=== PATIENT | female | born 1950 | race Caucasian/White ===

== ENCOUNTER 2022-05-16 04:20 | Inpatient (IN) | payer MEDICARE ==
--- NOTE | 2022-05-16 04:28 | ED ---
SOB HPI - General Stated Complaint: SOB Time Seen by Provider: 05/16/22 04:21 Source: RN notes reviewed, old records reviewed Mode of arrival: EMS Limitations: no limitations - History of Present Illness Initial Comments: This is a 72-year-old female DF for evaluation. Patient is a recent hospitalization, with discharge. For lung issues and breathing issues. Patient per EMS had a low oxygen when they arrived, patient was on a long oxygen hose 50 feet maybe poor oxygen output. Patient is improved here with supplemental O2 and per EMS. Patient himself complains of shortness of breath and low oxygen at home MD Complaint: shortness of breath, cough, anxiety -: hour(s) Severity: severe Severity scale (1-10): 8 Quality: aching Consistency: intermittent Improves With: oxygen, rest Worsens With: exertion, movement Known History Of: COPD, asthma Context: recent URI, anxiety, recent illness Associated Symptoms: cough, sputum production Treatments Prior to Arrival: oxygen, bronchodilator - Related Data Home Medications Medication Instructions Recorded Confirmed Albuterol Sulfate [Albuterol 2 puff PO RT-Q6H PRN 05/16/22 05/16/22 Sulfate Hfa] Alendronate Sodium [Fosamax] 70 mg PO WEEKLY 05/16/22 05/16/22 Famotidine [Pepcid] 20 mg PO DAILY 05/16/22 05/16/22 Fluticasone Nasal [place] [Flonase 1 spray EA NOSTRIL DAILY 05/16/22 05/16/22 Nasal [place]] HYDROcodone/APAP 5-325MG [[place] 1 tab PO BID PRN 05/16/22 05/16/22 5-325] Hydroxychloroquine Sulfate 200 mg PO DAILY 05/16/22 05/16/22 [Plaquenil] Ipratropium-Albuterol Nebulize 3 ml INHALATION RT-TID PRN 05/16/22 05/16/22 [Duoneb 0.5 mg-3 mg/3 ml Soln] Pregabalin [Lyrica] 150 mg PO DAILY 05/16/22 05/16/22 busPIRone HCL [Buspar] 7.5 mg PO BID 05/16/22 05/16/22 dilTIAZem HCL [dilTIAZem HCL 24Hr 120 mg PO DAILY 05/16/22 05/16/22 ER (CD)] predniSONE [Deltasone] 20 mg PO BID 05/16/22 05/16/22 Allergies Allergy/AdvReac Type Severity Reaction Status Date / Time lorazepam [From Ativan] Allergy Hallucinati Verified 05/16/22 11:31 ons Review of Systems ROS Statement: Those systems with pertinent positive or pertinent negative responses have been documented in the HPI. ROS Other: All systems not noted in ROS Statement are negative. General Exam General appearance: alert, in no apparent distress, anxious Head exam: Present: atraumatic, normocephalic, normal inspection Eye exam: Present: normal appearance, PERRL, EOMI. Absent: scleral icterus, conjunctival injection, periorbital swelling ENT exam: Present: normal exam, mucous membranes moist Neck exam: Present: normal inspection. Absent: tenderness, meningismus, lymphadenopathy Respiratory exam: Present: respiratory distress, wheezes, accessory muscle use, decreased breath sounds, prolonged expiratory. Absent: rales, rhonchi, stridor Cardiovascular Exam: Present: regular rate, normal rhythm, normal heart sounds. Absent: systolic murmur, diastolic murmur, rubs, gallop, clicks GI/Abdominal exam: Present: soft, normal bowel sounds. Absent: distended, tenderness, guarding, rebound, rigid Extremities exam: Present: normal inspection, full ROM, normal capillary refill. Absent: tenderness, pedal edema, joint swelling, calf tenderness Back exam: Present: normal inspection Neurological exam: Present: alert, oriented X3, CN II-XII intact Psychiatric exam: Present: normal affect, normal mood Skin exam: Present: warm, dry, intact, normal color. Absent: rash Course Vital Signs 05/16/22 05/16/22 05/16/22 04:30 04:36 05:46 Temperature 97.8 F Pulse Rate 99 100 Respiratory 20 20 Rate Blood Pressure 152/83 O2 Sat by Pulse 99 Oximetry 05/16/22 05/16/22 05/16/22 05:57 06:09 07:47 Temperature Pulse Rate 95 97 94 Respiratory 20 Rate Blood Pressure 117/99 O2 Sat by Pulse 95 Oximetry 05/16/22 05/16/22 05/16/22 07:56 08:07 10:16 Temperature Pulse Rate 103 H 96 84 Respiratory 18 Rate Blood Pressure O2 Sat by Pulse 95 Oximetry 12/09/0205/16/22 05/16/22 11:34 11:39 11:46 Temperature Pulse Rate 80 88 Respiratory 20 22 Rate Blood Pressure 151/77 O2 Sat by Pulse 97 Oximetry 05/16/22 05/16/22 05/16/22 11:57 12:43 14:48 Temperature Pulse Rate 89 93 89 Respiratory 20 18 Rate Blood Pressure O2 Sat by Pulse 97 97 Oximetry 05/16/22 05/16/22 05/16/22 16:00 18:25 18:38 Temperature 98.0 F 98.2 F Pulse Rate 78 87 92 Respiratory 18 18 Rate Blood Pressure 161/96 157/84 O2 Sat by Pulse 96 97 Oximetry 05/16/22 18:45 Temperature Pulse Rate 87 Respiratory Rate Blood Pressure O2 Sat by Pulse Oximetry - Reevaluation(s) Reevaluation #1: 05/16/22 05:49 Medical records reviewed Reevaluation #2: 05/16/22 05:49 Patient symptoms significantly improved remained improved, given education on using home oxygen Reevaluation #3: 05/16/22 05:50 Patient informed of results questions have been answered Medical Decision Making - Medical Decision Making 72 female DF for evaluation of shortness of breath and low oxygen. The symptoms are resolved here in the ER patient is given education on home O2 she is understandable and agreeable chest x-ray is negative. Patient has no improvemnt after prolonged breathing treatment here in the ER - Lab Data Result diagrams: 05/16/22 05:21 05/16/22 05:21 Lab Results 05/16/22 05/16/22 05/16/22 Range/Units 05:21 05:21 05:21 WBC 5.4 (3.8-10.6) k/uL RBC 3.78 L (3.80-5.40) m/uL Hgb 11.2 L (11.4-16.0) gm/dL Hct 36.7 (34.0-46.0) % MCV 97.1 (80.0-100.0) fL MCH 29.5 (25.0-35.0) pg MCHC 30.4 L (31.0-37.0) g/dL RDW 13.5 (11.5-15.5) % Plt Count 278 (150-450) k/uL MPV 9.4 Neutrophils % 76 % Lymphocytes % 10 % Monocytes % 9 % Eosinophils % 0 % Basophils % 1 % Neutrophils # 4.1 (1.3-7.7) k/uL Lymphocytes # 0.6 L (1.0-4.8) k/uL Monocytes # 0.5 (0-1.0) k/uL Eosinophils # 0.0 (0-0.7) k/uL Basophils # 0.1 (0-0.2) k/uL Hypochromasia Marked PT 9.4 (9.0-12.0) sec INR 0.9 (<1.2) APTT 21.3 L (22.0-30.0) sec Sodium 142 (137-145) mmol/L Potassium 5.3 H (3.5-5.1) mmol/L Chloride 98 (98-107) mmol/L Carbon Dioxide 41 H* (22-30) mmol/L Anion Gap 3 mmol/L BUN 18 H (7-17) mg/dL Creatinine 0.53 (0.52-1.04) mg/dL Est GFR (CKD-EPI)AfAm >90 (>60 ml/min/1.73 sqM) Est GFR (CKD-EPI)NonAf >90 (>60 ml/min/1.73 sqM) Glucose 125 H (74-99) mg/dL Calcium 8.1 L (8.4-10.2) mg/dL Magnesium 2.1 (1.6-2.3) mg/dL Total Bilirubin 0.4 (0.2-1.3) mg/dL AST 23 (14-36) U/L ALT 23 (4-34) U/L Alkaline Phosphatase 69 (38-126) U/L Troponin I (0.000-0.034) ng/mL NT-Pro-B Natriuret Pep pg/mL Total Protein 6.2 L (6.3-8.2) g/dL Albumin 4.1 (3.5-5.0) g/dL 05/16/22 05/16/22 Range/Units 05:21 05:21 WBC (3.8-10.6) k/uL RBC (3.80-5.40) m/uL Hgb (11.4-16.0) gm/dL Hct (34.0-46.0) % MCV (80.0-100.0) fL MCH (25.0-35.0) pg MCHC (31.0-37.0) g/dL RDW (11.5-15.5) % Plt Count (150-450) k/uL MPV Neutrophils % % Lymphocytes % % Monocytes % % Eosinophils % % Basophils % % Neutrophils # (1.3-7.7) k/uL Lymphocytes # (1.0-4.8) k/uL Monocytes # (0-1.0) k/uL Eosinophils # (0-0.7) k/uL Basophils # (0-0.2) k/uL Hypochromasia PT (9.0-12.0) sec INR (<1.2) APTT (22.0-30.0) sec Sodium (137-145) mmol/L Potassium (3.5-5.1) mmol/L Chloride (98-107) mmol/L Carbon Dioxide (22-30) mmol/L Anion Gap mmol/L BUN (7-17) mg/dL Creatinine (0.52-1.04) mg/dL Est GFR (CKD-EPI)AfAm (>60 ml/min/1.73 sqM) Est GFR (CKD-EPI)NonAf (>60 ml/min/1.73 sqM) Glucose (74-99) mg/dL Calcium (8.4-10.2) mg/dL Magnesium (1.6-2.3) mg/dL Total Bilirubin (0.2-1.3) mg/dL AST (14-36) U/L ALT (4-34) U/L Alkaline Phosphatase (38-126) U/L Troponin I 0.055 H* (0.000-0.034) ng/mL NT-Pro-B Natriuret Pep 3390 pg/mL Total Protein (6.3-8.2) g/dL Albumin (3.5-5.0) g/dL - Radiology Data Radiology results: report reviewed (Chest x-rays negative for acute disease), image reviewed Critical Care Time Critical Care Time: Yes Total Critical Care Time: 31 Disposition Clinical Impression: Acute exacerbation of chronic obstructive pulmonary disease, Hypoxia Disposition: HOME SELF-CARE Condition: Fair Is patient prescribed a controlled substance at d/c from ED?: No Time of Disposition: 06:20
[2022-05-16] MEDS ORDERED: SODIUM CHLORIDE 0.9% 1,000 ML IV STA (05:14)
[2022-05-16] MEDS ORDERED: IPRATROPIUM 0.5 MG/2.5 ML NEBU INHALATION STA (05:14)
[2022-05-16] MEDS ORDERED: methylPREDNISolone SOD SUCCI 125 MG/2 ML VIAL IV STA (05:14)
[2022-05-16] MEDS ORDERED: ALBUTEROL NEBULIZED 2.5 MG/3 ML INHALATION STA (05:14)
--- NOTE | 2022-05-16 05:33 | XR ---
EXAMINATION TYPE: XR chest 1V portable DATE OF EXAM: 05/16/2022 COMPARISON: NONE HISTORY: Short of breath TECHNIQUE: FINDINGS: Heart is enlarged. There is no gross heart failure. There is some coarsening of interstitia l markings. No pleural effusion. There are chest leads. IMPRESSION: Cardiomegaly. Mild pulmonary fibrosis. No obvious heart failure.
[2022-05-16 05:35] LABS: Basophils # (A) 0.1 k/uL (0-0.2); Basophils % (A) 1 %; Eosinophils % (A) 0 %; HCT 36.7 % (34.0-46.0); HGB 11.2 gm/dL (11.4-16.0); Hypochromasia Marked; Lymphocytes # (A) 0.6 k/uL (1.0-4.8); Lymphocytes % (A) 10 %; MCH 29.5 pg (25.0-35.0); MCHC 30.4 g/dL (31.0-37.0); MCV 97.1 fL (80.0-100.0); Mean Platelet Volume 9.4; Monocytes # (A) 0.5 k/uL (0-1.0); Monocytes % (A) 9 %; Neutrophils # (A) 4.1 k/uL (1.3-7.7); Neutrophils % (A) 76 %; Platelet Count 278 k/uL (150-450); RBC 3.78 m/uL (3.80-5.40); RDW 13.5 % (11.5-15.5); WBC 5.4 k/uL (3.8-10.6)
[2022-05-16 06:08] LABS: INR 0.9 (<1.2); Prothrombin Time 9.4 sec (9.0-12.0)
[2022-05-16 06:10] LABS: ALT 23 U/L (4-34); AST 23 U/L (14-36); African American GFR (CKD) >90 (>60 ml/min/1.73 sqM); Albumin 4.1 g/dL (3.5-5.0); Alkaline Phosphatase 69 U/L (38-126); Blood Urea Nitrogen 18 mg/dL (7-17); Calcium 8.1 mg/dL (8.4-10.2); Chloride 98 mmol/L (98-107); Glucose 125 mg/dL (74-99); Magnesium 2.1 mg/dL (1.6-2.3); Non-African American GFR(CKD) >90 (>60 ml/min/1.73 sqM); Potassium 5.3 mmol/L (3.5-5.1); Sodium 142 mmol/L (137-145); Total Bilirubin 0.4 mg/dL (0.2-1.3); Total Protein 6.2 g/dL (6.3-8.2)
[2022-05-16 06:15] LABS: Partial Thromboplastin Time 21.3 sec (22.0-30.0)
[2022-05-16 06:17] LABS: Anion Gap 3 mmol/L
[2022-05-16 06:34] LABS: Carbon Dioxide 41 mmol/L (22-30)
[2022-05-16] MEDS ORDERED: NALOXONE 0.4 MG/ML 1 ML VIAL IVP PRN (06:52)
[2022-05-16] MEDS ORDERED: IPRATROPIUM-ALBUTEROL 3 ML NEB INHALATION STA (06:52)
[2022-05-16] MEDS: DOXYCYCLINE 100 MG CAP PO SCH ×2 (08:43→22:27)
[2022-05-16] MEDS: methylPREDNISolone SOD SUCCI 125 MG/2 ML VIAL IV SCH ×2 (11:41→18:41)
--- NOTE | 2022-05-16 11:44 | P.CNPUL ---
History of Present Illness Consult date: 05/16/22 Requesting physician: Armand Garcia Reason for consult: dyspnea, COPD Chief complaint: Shortness of breath, cough, congestion History of present illness: This is a pleasant 72-year-old female patient with a history of chronic tobacco dependence of 50 years however quit in 2015, oxygen dependent. 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 She believes her lung function is at 43%. She had recently been hospitalized in [place] and had just been recently discharged. She was here in town with her daughter and she developed increasing shortness of breath cough congestion wheezing and presented here to the emergency room early this morning for the same. Chest x-ray reveals cardiomega ly. Mild pulmonary fibrosis. No acute heart failure. white count 5.4. Hemoglobin 11.2. Platelets 278. D-dimer 0.48. Sodium 142. Potassium 5.3. Bicarb 41. BUN 18. Creatinine 0.53. ProBNP 3390. Troponin 0.05. Newell virus by PCR not detected. She is initiated and DuoNeb inhalations, Solu-Medrol, Symbicort and empiric antibiotics in the form of doxycycline. Normal saline at 130 ML's per hour.she is seen today in contact flotation in the emergency department. Currently sitting up in a stretcher. Awake and alert in no acute distress. Breathing is somewhat improved. Review of Systems REVIEW OF SYSTEMS: CONSTITUTIONAL: Denies any recent significant weight loss or weight gain. EYES: Denies change in vision. EARS, NOSE, MOUTH, THROAT: Denies headaches, denies sore throat. CARDIOVASCULAR: Denies chest pain, palpitations or syncopal episodes. RESPIRATORY:Positive for shortness of breath, cough, congestion no hemoptysis. GASTROINTESTINAL: Denies change in appetite, denies abdominal pain GENITOURINARY: Denies hematuria, denies infections. MUSKULOSKELETAL: Denies pain, denies swelling. INTEGUMENTARY: Denies rash, denies eczema. NEUROLOGICAL: Denies recent memory loss, no recent seizure activity. PSYCHIATRIC: Denies anxiety, denies depression. HEMATOLOGIC/LYMPHATIC: Denies anemia, denies enlarged lymph nodes. Medications and Allergies Allergies Allergy/AdvReac Type Severity Reaction Status Date / Time lorazepam [From Ativan] Allergy Hallucinati Verified 05/16/22 11:31 ons Physical Exam Vitals: Vital Signs Temp Pulse Resp BP Pulse Ox 05/16/22 10:16 84 18 95 05/16/22 08:07 96 05/16/22 07:56 103 H 05/16/22 07:47 94 20 117/99 95 05/16/22 06:09 97 05/16/22 05:57 95 05/16/22 05:46 100 05/16/22 04:36 20 05/16/22 04:30 97.8 F 99 20 152/83 99 Intake and Output 05/15/22 05/16/22 05/16/22 22:59 06:59 14:59 Other: Weight 63.503 kg GENERAL EXAM: Alert, pleasant 72-year-old female patient, on 4 L nasal cannula, comfortable in no apparent distress. HEAD: Normocephalic. EYES: Normal reaction of pupils, equal size. NOSE: Clear with pink turbinates. THROAT: No erythema or exudates. NECK: No masses, no JVD. CHEST: No chest wall deformity. LUNGS: Equal air entry with bilateral end expiratory wheeze, diminished. CVS: S1 and S2 normal with no audible murmur, regular rhythm. ABDOMEN: No hepatosplenomegaly, normal bowel sounds, no guarding or rigidity. SPINE: No scoliosis or deformity SKIN: No rashes CENTRAL NERVOUS SYSTEM: No focal deficits, tone is normal in all 4 extremities. EXTREMITIES: There is no peripheral edema. No clubbing, no cyanosis. Peripheral pulses are intact. Results - Laboratory Findings CBC and BMP: 05/16/22 05:21 05/16/22 05:21 PT/INR, D-dimer PT 9.4 sec (9.0-12.0) 05/16/22 05:21 INR 0.9 (<1.2) 05/16/22 05:21 D-Dimer 0.48 mg/L FEU (<0.60) 05/16/22 08:30 Abnormal lab findings: Abnormal Labs 05/16/22 05/16/22 05/16/22 05:21 05:21 05:21 RBC 3.78 L Hgb 11.2 L MCHC 30.4 L Lymphocytes # 0.6 L APTT 21.3 L Potassium 5.3 H Carbon Dioxide 41 H* BUN 18 H Glucose 125 H Calcium 8.1 L Troponin I Total Protein 6.2 L 05/16/22 05:21 RBC Hgb MCHC Lymphocytes # APTT Potassium Carbon Dioxide BUN Glucose Calcium Troponin I 0.055 H* Total Protein Assessment and Plan Assessment: Acute on chronic hypoxemic respiratory failure secondary to an exacerbation of COPD. Newell virus not detected. History of chronic obstructive pulmonary disease, oxygen dependent History of 50 years of chronic tobacco dependence however quit in 2014 Recent hospitalization in [place] Plan: The patient was seen and evaluated Chest x-ray, labs and medications reviewed Continue Symbicort, Solu-Medrol, DuoNeb inhalations Follow-up with her network systems integrator within 1 week of discharge We will continue to follow and make further recommendations based on her clinical status I have personally seen and examined the patient, performed the documentation and the assessment and plan as written. Number of minutes spent on the visit: 20
[2022-05-16] MEDS: IPRATROPIUM-ALBUTEROL 3 ML NEB INHALATION PRN ×3 (11:45→21:32)
[2022-05-16] MEDS ORDERED: ALBUTEROL HFA INHALER INHALATION PRN (12:01)
--- NOTE | 2022-05-16 12:09 | P.HPIM ---
History of Present Illness H&P Date: 05/16/22 History of present illness; patient is 72-year-old lady with past medical history significant for chronic hypoxic respiratory failure, COPD, history of tobacco addiction who presented to the ER because of worsening shortness of breath. Patient was recently admitted in the hospital in [place] for COPD exacerbation and was discharged and was visiting her daughter here. Patient was using oxygen at home, normally 2 L at rest at 4 L on exertion but stated that yesterday she felt that her oxygen was not working for her. Patient was getting short of breath on exertion, also complaining of cough. Denied any chest pain. There was no complain of orthopnea or PND. Denies any swelling of feet. Pat ient was worked up in the ER, initial lab work showed patient to have a white count of 5.4, hemoglobin 11.2, platelet count of 278, sodium 142 potassium 5.3, bicarbonate 41, covid was negative, chest x-ray was negative for pneumonia. Patient was admitted to hospitalist service REVIEW OF SYSTEMS: CONSTITUTIONAL: No fever, no malaise, no fatigue. HEENT: No recent visual problems or hearing problems. Denied any sore throat. CARDIOVASCULAR: No chest pain, orthopnea, PND, no palpitations, no syncope. PULMONARY: As mentioned in HPI GASTROINTESTINAL: No diarrhea, no nausea, no vomiting, no abdominal pain. NEUROLOGICAL: No headaches, no weakness, no numbness. HEMATOLOGICAL: Denies any bleeding or petechiae. GENITOURINARY: Denies any burning micturition, frequency, or urgency. MUSCULOSKELETAL/RHEUMATOLOGICAL: Denies any joint pain, swelling, or any muscle pain. ENDOCRINE: Denies any polyuria or polydipsia. The rest of the 14-point review of systems is negative. PHYSICAL EXAMINATION: GENERAL: The patient is alert and oriented x3, not in any acute distress. Well developed, well nourished. HEENT: Pupils are round and equally reacting to light. EOMI. No scleral icterus. No conjunctival pallor. Normocephalic, atraumatic. No pharyngeal erythema. No thyromegaly. CARDIOVASCULAR: S1 and S2 present. No murmurs, rubs, or gallops. PULMONARY: Tachypneic, coarse breath some bilaterally, expiratory wheeze audible ABDOMEN: Soft, nontender, nondistended, normoactive bowel sounds. No palpable organomegaly. MUSCULOSKELETAL: No joint swelling or deformity. EXTREMITIES: No cyanosis, clubbing, or pedal edema. NEUROLOGICAL: Gross neurological examination did not reveal any focal deficits. SKIN: No rashes. Assessment and plan Acute on chronic hypoxemic respiratory failure. Acute COPD exacerbation Hyperkalemia History of tobacco addiction Plan; Continue oxygen supplementation Aggressive bronchopulmonary hygiene continue IV Solu-Medrol Continue breathing treatment continue doxycycline Resume home meds Consult pulmonary Medications and Allergies Home Medications Medication Instructions Recorded Confirmed Type Albuterol Sulfate [Albuterol 2 puff PO RT-Q6H PRN 05/16/22 05/16/22 History Sulfate Hfa] Alendronate Sodium [Fosamax] 70 mg PO WEEKLY 05/16/22 05/16/22 History Famotidine [Pepcid] 20 mg PO DAILY 05/16/22 05/16/22 History Fluticasone Nasal [place] [Flonase 1 spray EA NOSTRIL DAILY 05/16/22 05/16/22 History Nasal [place]] HYDROcodone/APAP 5-325MG [[place] 1 tab PO BID PRN 05/16/22 05/16/22 History 5-325] Hydroxychloroquine Sulfate 200 mg PO DAILY 05/16/22 05/16/22 History [Plaquenil] Ipratropium-Albuterol Nebulize 3 ml INHALATION RT-TID PRN 05/16/22 05/16/22 History [Duoneb 0.5 mg-3 mg/3 ml Soln] Pregabalin [Lyrica] 150 mg PO DAILY 05/16/22 05/16/22 History busPIRone HCL [Buspar] 7.5 mg PO BID 05/16/22 05/16/22 History dilTIAZem HCL [dilTIAZem HCL 24Hr 120 mg PO DAILY 05/16/22 05/16/22 History ER (CD)] predniSONE [Deltasone] 20 mg PO BID 05/16/22 05/16/22 History Allergies Allergy/AdvReac Type Severity Reaction Status Date / Time lorazepam [From Ativan] Allergy Hallucinati Verified 05/16/22 11:31 ons Physical Exam Vitals: Vital Signs Temp Pulse Resp BP Pulse Ox 05/16/22 11:57 89 05/16/22 11:46 88 05/16/22 11:39 22 05/16/22 11:34 80 20 151/77 97 05/16/22 10:16 84 18 95 05/16/22 08:07 96 05/16/22 07:56 103 H 05/16/22 07:47 94 20 117/99 95 05/16/22 06:09 97 05/16/22 05:57 95 05/16/22 05:46 100 05/16/22 04:36 20 05/16/22 04:30 97.8 F 99 20 152/83 99 Intake and Output 05/15/22 05/16/22 05/16/22 22:59 06:59 14:59 Other: Weight 63.503 kg Results CBC & Chem 7: 05/16/22 05:21 05/16/22 05:21 Labs: Abnormal Lab Results - Last 24 Hours (Table) 05/16/22 05/16/22 05/16/22 Range/Units 05:21 05:21 05:21 RBC 3.78 L (3.80-5.40) m/uL Hgb 11.2 L (11.4-16.0) gm/dL MCHC 30.4 L (31.0-37.0) g/dL Lymphocytes # 0.6 L (1.0-4.8) k/uL APTT 21.3 L (22.0-30.0) sec Potassium 5.3 H (3.5-5.1) mmol/L Carbon Dioxide 41 H* (22-30) mmol/L BUN 18 H (7-17) mg/dL Glucose 125 H (74-99) mg/dL Calcium 8.1 L (8.4-10.2) mg/dL Troponin I (0.000-0.034) ng/mL Total Protein 6.2 L (6.3-8.2) g/dL 05/16/22 Range/Units 05:21 RBC (3.80-5.40) m/uL Hgb (11.4-16.0) gm/dL MCHC (31.0-37.0) g/dL Lymphocytes # (1.0-4.8) k/uL APTT (22.0-30.0) sec Potassium (3.5-5.1) mmol/L Carbon Dioxide (22-30) mmol/L BUN (7-17) mg/dL Glucose (74-99) mg/dL Calcium (8.4-10.2) mg/dL Troponin I 0.055 H* (0.000-0.034) ng/mL Total Protein (6.3-8.2) g/dL
[2022-05-16] MEDS: FUROSEMIDE 10 MG/ML 4 ML VIAL IV SCH (18:41)
[2022-05-16 21:12] LABS: Glucose,Whole Blood 170 mg/dL (70-110)
[2022-05-16] MEDS: SYMBICORT 160-4.5 MCG INHALER INHALATION SCH (21:32)
[2022-05-16] MEDS: busPIRone HCl 5 MG TAB PO SCH (22:26)
[2022-05-16] MEDS: FLUTICASONE 50MCG/SPRAY NASAL 16GM EA NOSTRIL PRN (22:27)
[2022-05-17] MEDS ORDERED: HEPARIN SOD,PORK IN 0.45% NACL 25,000 UNIT in 0.45% NACL 1 250ML.BAG IV SCH
[2022-05-17] MEDS ORDERED: HEPARIN SODIUM 1,000 UN/ML (10ML VL) IV ONE
[2022-05-17] MEDS ORDERED: DILTIAZEM DRIP BOLUS FROM BAG 1 MG SOLN IV ONE (00:16)
[2022-05-17 00:19] LABS: Glucose,Whole Blood 165 mg/dL (70-110)
[2022-05-17] MEDS ORDERED: DILTIAZEM 125 MG in SODIUM CHLORIDE 0.9% 100 ML IV SCH (00:30)
[2022-05-17 00:45] LABS: Basophils % (A) 0 %; Eosinophils % (A) 0 %; HCT 36.6 % (34.0-46.0); Hypochromasia Marked; Lymphocytes # (A) 0.3 k/uL (1.0-4.8); Lymphocytes % (A) 5 %; MCH 28.8 pg (25.0-35.0); Mean Platelet Volume 8.6; Monocytes # (A) 0.4 k/uL (0-1.0); Monocytes % (A) 6 %; Neutrophils # (A) 5.2 k/uL (1.3-7.7); Neutrophils % (A) 87 %; Platelet Count 279 k/uL (150-450); RBC 3.82 m/uL (3.80-5.40); RDW 13.6 % (11.5-15.5); WBC 5.9 k/uL (3.8-10.6)
[2022-05-17] MEDS: HEPARIN SODIUM 1,000 UN/ML (10ML VL) IV PRN ×3 (00:46→16:02)
[2022-05-17] MEDS: methylPREDNISolone SOD SUCCI 125 MG/2 ML VIAL IV SCH ×5 (00:54→23:08)
[2022-05-17 01:05] LABS: INR 0.9 (<1.2); Partial Thromboplastin Time 21.7 sec (22.0-30.0)
[2022-05-17] MEDS: IPRATROPIUM-ALBUTEROL 3 ML NEB INHALATION PRN ×6 (03:49→23:23)
--- NOTE | 2022-05-17 04:05 | XR ---
EXAMINATION TYPE: XR chest 1V portable DATE OF EXAM: 05/17/2022 COMPARISON: Yesterday HISTORY: Short of breath TECHNIQUE: FINDINGS: There is an enlarged heart. There is pulmonary interstitial and airspace mild edema. There is blunting of the costophrenic angles. There are chest leads. IMPRESSION: There is pulmonary edema and pleural fluid which is mostly new compared to yesterday and consistent with congestive heart failure.
[2022-05-17 06:43] LABS: HCT 35.9 % (34.0-46.0); HGB 10.9 gm/dL (11.4-16.0); Hypochromasia Marked; MCH 28.8 pg (25.0-35.0); MCHC 30.4 g/dL (31.0-37.0); MCV 94.6 fL (80.0-100.0); Mean Platelet Volume 8.6; Platelet Count 302 k/uL (150-450); RDW 13.4 % (11.5-15.5); WBC 6.8 k/uL (3.8-10.6)
[2022-05-17 06:56] LABS: Glucose,Whole Blood 167 mg/dL (70-110)
[2022-05-17 07:04] LABS: ALT 22 U/L (4-34); AST 21 U/L (14-36); African American GFR (CKD) >90 (>60 ml/min/1.73 sqM); Albumin 3.8 g/dL (3.5-5.0); Albumin/Globulin Ratio 1.8; Alkaline Phosphatase 54 U/L (38-126); Blood Urea Nitrogen 18 mg/dL (7-17); Calcium 8.8 mg/dL (8.4-10.2); Chloride 90 mmol/L (98-107); Globulin 2.1 g/dL; Glucose 157 mg/dL (74-99); Non-African American GFR(CKD) >90 (>60 ml/min/1.73 sqM); Potassium 4.3 mmol/L (3.5-5.1); Sodium 140 mmol/L (137-145); Total Bilirubin 0.4 mg/dL (0.2-1.3); Total Protein 5.9 g/dL (6.3-8.2)
[2022-05-17 07:10] LABS: Anion Gap 4 mmol/L
[2022-05-17 07:16] LABS: Carbon Dioxide 46 mmol/L (22-30)
[2022-05-17] MEDS ORDERED: DILTIAZEM CD 120 MG CAP.ER.24H PO SCH ×2 (09:00)
[2022-05-17] MEDS ORDERED: LOSARTAN 25 MG TAB PO SCH (09:00)
[2022-05-17] MEDS: DOXYCYCLINE 100 MG CAP PO SCH ×2 (09:04→20:56)
[2022-05-17] MEDS: FLUTICASONE 50MCG/SPRAY NASAL 16GM EA NOSTRIL PRN ×2 (09:05→20:56)
[2022-05-17] MEDS: FLUTICASONE 50MCG/SPRAY NASAL 16GM EA NOSTRIL SCH (09:06)
[2022-05-17] MEDS: FUROSEMIDE 10 MG/ML 4 ML VIAL IV SCH (09:13)
[2022-05-17] MEDS: SYMBICORT 160-4.5 MCG INHALER INHALATION SCH ×2 (09:20→19:07)
[2022-05-17] MEDS: busPIRone HCl 5 MG TAB PO SCH ×2 (10:11→20:56)
[2022-05-17] MEDS ORDERED: DILTIAZEM CD 120 MG CAP.ER.24H PO STA (12:07)
--- NOTE | 2022-05-17 12:43 | P.PN ---
Subjective Progress Note Date: 05/17/22 patient is 72-year-old lady with past medical history significant for chronic hypoxic respiratory failure, COPD, history of tobacco addiction who presented to the ER because of worsening shortness of breath. Patient was recently admitted in the hospital in [place] for COPD exacerbation and was discharged and was visiting her daughter here. Patient was using oxygen at home, normally 2 L at rest at 4 L on exertion but stated that yesterday she felt that her oxygen was not working for her. Patient was getting short of breath on exertion, also complaining of cough. Denied any chest pain. There was no complain of orthopnea or PND. Denies any swelling of feet. Patient was worked up in the ER, initial lab work showed patient to have a white count of 5.4, hemoglobin 11.2, platelet count of 278, sodium 142 potassium 5.3, bicarbonate 41, covid was negative, chest x-ray was negative for pneumonia. Patient was admitted to hospitalist service 05/17. Patient seen and examined. Feeling much better compared to yesterday. Currently on 4 L of oxygen REVIEW OF SYSTEMS: CONSTITUTIONAL: No fever, no malaise,. CARDIOVASCULAR: No chest pain, no palpitations, no syncope. PULMONARY: Gets short of breath on slight exertion. Complaining of cough GASTROINTESTINAL: No diarrhea, no nausea, no vomiting, no abdominal pain. NEUROLOGICAL: No headaches, no weakness, PHYSICAL EXAMINATION: GENERAL: The patient is alert and oriented x3, not in any acute distress. Well developed, well nourished. HEENT: Pupils are round and equally reacting to light. EOMI. No scleral icterus. No conjunctival pallor. Normocephalic, atraumatic. No pharyngeal erythema. No thyromegaly. CARDIOVASCULAR: S1 and S2 present. No murmurs, rubs, or gallops. PULMONARY: Coarse breath some bilaterally ABDOMEN: Soft, nontender, nondistended, normoactive bowel sounds. No palpable organomegaly. MUSCULOSKELETAL: No joint swelling or deformity. EXTREMITIES: No cyanosis, clubbing, or pedal edema. NEUROLOGICAL: Gross neurological examination did not reveal any focal deficits. SKIN: No rashes. Assessment and plan Acute on chronic hypoxemic respiratory failure. Acute COPD exacerbation Hyperkalemia History of tobacco addiction Elevated troponin. A. fib with RVR Plan; Continue oxygen supplementation Aggressive bronchopulmonary hygiene continue IV Solu-Medrol Continue breathing treatment continue doxycycline echo ordered Follow-up on cardiology recommendations Follow-up on pulmonary recommendations DVT prophylaxis: Objective - Vital Signs Vital signs: Vital Signs Temp 97.9 F 05/17/22 09:00 Pulse 117 H 05/17/22 11:00 Resp 88 H 05/17/22 11:00 BP 135/57 05/17/22 10:00 Pulse Ox 93 L 05/17/22 10:30 FiO2 40 05/17/22 09:21 Intake & Output 05/16/22 05/17/22 05/17/22 18:59 06:59 18:59 Intake Total 60 248.006 Output Total 600 400 Balance -540 -151.994 Weight 63.503 kg Intake: Intake, IV Titration 48.006 Amount Heparin Sod,Pork in 0.45% 48.006 NaCl 25,000 unit In 0.45 % NaCl 1 250ml.bag @ 12 UNITS/KG/HR 7.62 mls/hr IV .Q24H FLAQUITO Rx#: [id number] Oral 60 200 Output: Urine 600 400 Other: Voiding Method Bedside Commode # Voids 1 1 # Bowel Movements 1 - Labs CBC & Chem 7: 05/17/22 06:18 05/17/22 06:18 Labs: Abnormal Lab Results - Last 24 Hours (Table) 05/16/22 05/16/22 05/17/22 Range/Units 15:04 21:11 00:16 Hgb 11.0 L (11.4-16.0) gm/dL MCHC 30.0 L (31.0-37.0) g/dL Lymphocytes # 0.3 L (1.0-4.8) k/uL APTT (22.0-30.0) sec Chloride (98-107) mmol/L Carbon Dioxide (22-30) mmol/L BUN (7-17) mg/dL Glucose (74-99) mg/dL POC Glucose (mg/dL) 170 H (70-110) mg/dL Troponin I 0.043 H* (0.000-0.034) ng/mL Total Protein (6.3-8.2) g/dL 05/17/22 05/17/22 05/17/22 Range/Units 00:16 00:17 06:18 Hgb 10.9 L (11.4-16.0) gm/dL MCHC 30.4 L (31.0-37.0) g/dL Lymphocytes # (1.0-4.8) k/uL APTT 21.7 L (22.0-30.0) sec Chloride (98-107) mmol/L Carbon Dioxide (22-30) mmol/L BUN (7-17) mg/dL Glucose (74-99) mg/dL POC Glucose (mg/dL) 165 H (70-110) mg/dL Troponin I (0.000-0.034) ng/mL Total Protein (6.3-8.2) g/dL 05/17/22 05/17/22 Range/Units 06:18 06:55 Hgb (11.4-16.0) gm/dL MCHC (31.0-37.0) g/dL Lymphocytes # (1.0-4.8) k/uL APTT (22.0-30.0) sec Chloride 90 L (98-107) mmol/L Carbon Dioxide 46 H* (22-30) mmol/L BUN 18 H (7-17) mg/dL Glucose 157 H (74-99) mg/dL POC Glucose (mg/dL) 167 H (70-110) mg/dL Troponin I (0.000-0.034) ng/mL Total Protein 5.9 L (6.3-8.2) g/dL
--- NOTE | 2022-05-17 12:47 | CONS ---
CONSULTATION HISTORY OF PRESENT ILLNESS: Yaneth is a 72-year-old lady with history of severe COPD, who is admitted to hospital with shortness of breath, cough, and congestion. She has a longstanding history of smoking. She lives in near [place] and is visiting her daughter here in [place]. She has recently been admitted to hospital in [place] with similar symptoms. On her initial presentation, her BNP was elevated. She had leg edema and had mild troponin elevation. Her clinical presentation seemed to be related to COPD exacerbation with elevated troponin probably related to hypoxia and respiratory distress. Her heart failure is probably predominantly right-sided. While on the floor last night, she developed atrial flutter with rapid ventricular rate. I started her on Cardizem and transferred her to ICU. She converted back to sinus rhythm this morning and remains in sinus rhythm. At the time of my evaluation, she is on a non-rebreather and does not seem to be in distress and denies any chest pain. I am going to stop the IV Cardizem, resume the oral Cardizem that she had been on, but continue the IV heparin, and hopefully, transition her to an oral anticoagulant. I will obtain a 2D echo to evaluate her systolic and diastolic function and to rule out any pulmonary hypertension. She will continue with Lasix that she is currently on. Blood pressure is poorly controlled, I am adding Cozaar. She is not a candidate for beta blockers because of the severe underlying COPD. CURRENT MEDICATIONS: 1. Prednisone. 2. Lyrica. 3. DuoNeb. 4. Plaquenil. 5. Crescent. 6. Diltiazem. 7. BuSpar. 8. Pepcid. 9. Fosamax. 10.Albuterol. ALLERGIES: Allergic to Ativan. FAMILY HISTORY: Negative for premature coronary artery disease. SOCIAL HISTORY: Significant for smoking, but she quit several years ago. REVIEW OF SYSTEMS: HEENT: Unremarkable. CARDIAC: As described above. RESPIRATORY: As described above. GI: Negative. GENITOURINARY: Negative. ALLERGY/IMMUNOLOGY: Negative. SKIN: Negative. MUSCULOSKELETAL: Significant for arthritis. PSYCHOSOCIAL: Negative. DERM: Negative. CONSTITUTIONAL: As described above. Rest of the system review is not relevant. PHYSICAL EXAMINATION: VITAL SIGNS: The patient is afebrile, heart rate is 70 beats per minute, blood pressure is 170/80, respiratory rate is 18. CHEST: Reveals diffuse rhonchi, diminished air entry bilaterally. HEART: Reveals first and second heart sounds. No gallop. I do not hear any murmur. ABDOMEN: Soft. EXTREMITIES: Reveals bilateral 2+ pitting edema. LABORATORY DATA AND IMAGING: Labs show a hemoglobin of 10.9, platelet count is 302, potassium is 4.3, creatinine is 0.5. Troponins are mildly elevated at 0.05 and 0.04. EKG showed atypical atrial flutter with rapid ventricular rate. This morning, the rhythm strips show that she is back in sinus rhythm. ASSESSMENT: 1. Shortness of breath secondary to chronic obstructive pulmonary disease exacerbation. 2. Right-sided heart failure. 3. Atypical atrial flutter. 4. Elevated troponin secondary to hypoxia, could represent type 2 myocardial infarction. PLAN: I will obtain a 2D echo. Resume the oral Cardizem, stop intravenous Cardizem. Add losartan. Continue the diuretics for another day and switch her to p.o. hopefully tomorrow. MMODL / PAULINAN: [id number] /
--- NOTE | 2022-05-17 13:03 | P.PN ---
Subjective Progress Note Date: 05/17/22 Principal diagnosis: acute exacerbation of COPD This is a pleasant 72-year-old female patient with a history of chronic tobacco dependence of 50 years however quit in 2015, oxygen dependent. 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 She believes her lung function is at 43%. She had recently been hospitalized in [place] and had just been recently discharged. She was here in town with her daughter and she developed increasing shortness of breath cough congestion wheezing and presented here to the emergency room early this morning for the same. Chest x-ray reveals cardiomegaly. Mild pulmonary fibrosis. No acute heart failure. white count 5.4. Hemoglobin 11.2. Platelets 278. D-dimer 0.48. Sodium 142. Potassium 5.3. Bicarb 41. BUN 18. Creatinine 0.53. ProBNP 3390. Troponin 0.05. Newell virus by PCR not detected. She is initiated and DuoNeb inhalations, Solu- Medrol, Symbicort and empiric antibiotics in the form of doxycycline. Normal saline at 130 ML's per hour.she is seen today in contact flotation in the emergency department. Currently sitting up in a stretcher. Awake and alert in no acute distress. Breathing is somewhat improved. Patient was reevaluated today on 05/17/22, patient had to be transferred to the ICU last night mostly because she developed atrial fibrillation and RVR. Patient also developed some component of mild congestive heart failure. Had to be placed on diuretics, we had to place the patient on BiPAP last night, however she seems to be more comfortable today, she is down to 4 L nasal cannula, and last night she was on BiPAP 12/5/40%. Chest x-ray did show evidence of mild congestive heart failure. Patient was placed on Cardizem and it was already transitioned to oral Cardizem by cardiology this morning.WBC count today is 6.8 hemoglobin is 10.9 lites are normal bicarb is 46 BUN is 18 and creatinine 0.57. Chest x-ray showed cardiomegaly and mild interstitial edema. Along with COPD. Objective - Vital Signs Vital signs: Vital Signs Temp 97.9 F 05/17/22 09:00 Pulse 117 H 05/17/22 11:00 Resp 88 H 05/17/22 11:00 BP 135/57 05/17/22 10:00 Pulse Ox 93 L 05/17/22 10:30 FiO2 40 05/17/22 09:21 Intake & Output 05/16/22 05/17/22 05/17/22 18:59 06:59 18:59 Intake Total 60 248.006 Output Total 600 400 Balance -540 -151.994 Weight 63.503 kg Intake: Intake, IV Titration 48.006 Amount Heparin Sod,Pork in 0.45% 48.006 NaCl 25,000 unit In 0.45 % NaCl 1 250ml.bag @ 12 UNITS/KG/HR 7.62 mls/hr IV .Q24H [facility] Rx#: [id number] Oral 60 200 Output: Urine 600 400 Other: Voiding Method Bedside Commode # Voids 1 1 # Bowel Movements 1 - Exam Physical Exam: Revealed a 72-year-old female in no distress, she is on 4 L nasal cannula. Head: Atraumatic, normocephalic. HEENT:[Neck is supple.] [No neck masses.] [No thyromegaly.] [No JVD.] Chest: [diminished breath sounds and crackles at the bases. Occasional wheezing on forced expiratory maneuver.] Cardiac Exam:irregular irregular rhythm. [Normal S1 and S2, no S3 gallop, no murmur.] Abdomen: [Soft, nontender, no megaly, no rebound, no guarding, normal bowel sounds.] Extremities: [No clubbing, no edema, no cyanosis.] Neurological Exam: [No focal neurologic deficit.]alert and oriented 3. Psychiatric: Normal mood affect and normal mental status examination. Skin: No rashes. - Labs CBC & Chem 7: 05/17/22 06:18 05/17/22 06:18 Labs: Abnormal Lab Results - Last 24 Hours (Table) 05/16/22 05/16/22 05/17/22 Range/Units 15:04 21:11 00:16 Hgb 11.0 L (11.4-16.0) gm/dL MCHC 30.0 L (31.0-37.0) g/dL Lymphocytes # 0.3 L (1.0-4.8) k/uL APTT (22.0-30.0) sec Chloride (98-107) mmol/L Carbon Dioxide (22-30) mmol/L BUN (7-17) mg/dL Glucose (74-99) mg/dL POC Glucose (mg/dL) 170 H (70-110) mg/dL Troponin I 0.043 H* (0.000-0.034) ng/mL Total Protein (6.3-8.2) g/dL 05/17/22 05/17/22 05/17/22 Range/Units 00:16 00:17 06:18 Hgb 10.9 L (11.4-16.0) gm/dL MCHC 30.4 L (31.0-37.0) g/dL Lymphocytes # (1.0-4.8) k/uL APTT 21.7 L (22.0-30.0) sec Chloride (98-107) mmol/L Carbon Dioxide (22-30) mmol/L BUN (7-17) mg/dL Glucose (74-99) mg/dL POC Glucose (mg/dL) 165 H (70-110) mg/dL Troponin I (0.000-0.034) ng/mL Total Protein (6.3-8.2) g/dL 05/17/22 05/17/22 Range/Units 06:18 06:55 Hgb (11.4-16.0) gm/dL MCHC (31.0-37.0) g/dL Lymphocytes # (1.0-4.8) k/uL APTT (22.0-30.0) sec Chloride 90 L (98-107) mmol/L Carbon Dioxide 46 H* (22-30) mmol/L BUN 18 H (7-17) mg/dL Glucose 157 H (74-99) mg/dL POC Glucose (mg/dL) 167 H (70-110) mg/dL Troponin I (0.000-0.034) ng/mL Total Protein 5.9 L (6.3-8.2) g/dL Assessment and Plan Assessment: Acute on chronic hypoxemic respiratory failure secondary to an exacerbation of COPD. Newell virus not detected. stat atrial fibrillation with RVR, likely triggered by her underlying COPD. History of chronic obstructive pulmonary disease, oxygen dependent History of 50 years of chronic tobacco dependence however quit in 2015 mild congestive heart failure, possibly secondary to A. fib RVR,/diastolic in nature. Recommendation: Continue bronchodilators. Continue Solu-Medrol. Continue antibiotics. Continue heparin and eventually may transition to oral medication./Eliquis. continue oral Cardizem Continue to monitor in the ICU. Continue diuretics. Continue GI prophylaxis. Advanced diet as tolerated. We'll continue to follow. Time with Patient: Less than 30
--- NOTE | 2022-05-17 16:08 | CA ---
Transthoracic Echo Report Name: Yaneth Dejesus Age: 72 Gender: F : 1950 Exam Date: 05/17/2022 10:34 Exam Location: [facility] Ht (in): 50 Wt (lb): 140 Ordering Physician: Marc Clark MD ([id number]) Attending/Referring Phys: Eduardo YOO Pulp Grinder Feeder Johnna Figueroa RDCS Procedure CPT: Indications: heart function Cardiac Hx: Technical Quality: Contrast 1: Total Dose (mL): Contrast 2: Total Dose (mL): MEASUREMENTS (Male / Female) Normal Values 2D ECHO LV Diastolic Diameter PLAX 4.6 cm 4.2 - 5.9 / 3.9 - 5.3 cm LV Systolic Diameter PLAX 3.6 cm IVS Diastolic Thickness 1.1 cm 0.6 - 1.0 / 0.6 - 0.9 cm LVPW Diastolic Thickness 1.6 cm 0.6 - 1.0 / 0.6 - 0.9 cm LV Relative Wall Thickness 0.6 RV Internal Dim ED PLAX 2.6 cm LA Systolic Diameter LX 3.3 cm 3.0 - 4.0 / 2.7 - 3.8 cm LA Volume 48.7 cm??? 18 - 58 / 22 - 52 cm??? M-MODE Aortic Root Diameter MM 3.3 cm LA Systolic Diameter MM 3.9 cm LA Ao Ratio MM 1.2 MV E Point Septal Separation 0.7 cm AV Cusp Separation MM 1.5 cm FINDINGS Left Ventricle Mildly increased septal wall thickness.left ventricular cavity size normal. Left ventricular ejection fraction is estimated at 55%. Right Ventricle Normal right ventricular size and function. Right ventricular systolic pressure within normal limits. Right Atrium Normal right atrial size. Left Atrium Normal left atrial size. Mitral Valve Mitral annular calcification. Mild mitral regurgitation. Aortic Valve Trileaflet aortic valve. Aortic valve sclerosis. Tricuspid Valve Structurally normal tricuspid valve. Mild tricuspid regurgitation. Pulmonic Valve Structurally normal pulmonic valve. Pericardium Normal pericardium. Aorta Normal size aortic root and proximal ascending aorta. CONCLUSIONS Normal LV systolic function Mild mitral regurgitation Previewed by: Dr. Marc Clark MD (Electronically Signed) Final Date: 17 May 2022 16:07
[2022-05-17 20:57] LABS: Glucose,Whole Blood 184 mg/dL (70-110)
[2022-05-17] MEDS: ACETAMINOPHEN TAB 325 MG TAB PO PRN (23:48)
[2022-05-18] MEDS: IPRATROPIUM-ALBUTEROL 3 ML NEB INHALATION PRN ×4 (02:04→23:20)
[2022-05-18] MEDS: methylPREDNISolone SOD SUCCI 125 MG/2 ML VIAL IV SCH ×4 (05:15→23:58)
[2022-05-18 05:16] LABS: Glucose,Whole Blood 170 mg/dL (70-110)
[2022-05-18 07:33] LABS: Basophils % (A) 0 %; Eosinophils % (A) 0 %; HCT 38.5 % (34.0-46.0); HGB 11.5 gm/dL (11.4-16.0); Hypochromasia Marked; Lymphocytes # (A) 0.2 k/uL (1.0-4.8); Lymphocytes % (A) 2 %; MCH 28.2 pg (25.0-35.0); MCHC 29.9 g/dL (31.0-37.0); MCV 94.4 fL (80.0-100.0); Mean Platelet Volume 8.7; Monocytes # (A) 0.4 k/uL (0-1.0); Monocytes % (A) 5 %; Neutrophils # (A) 7.3 k/uL (1.3-7.7); Neutrophils % (A) 91 %; Platelet Count 331 k/uL (150-450); RBC 4.08 m/uL (3.80-5.40); RDW 13.5 % (11.5-15.5); WBC 8.1 k/uL (3.8-10.6)
--- NOTE | 2022-05-18 07:50 | XR ---
EXAMINATION TYPE: XR chest 1V portable DATE OF EXAM: 05/18/2022 HISTORY: Shortness of breath. COMPARISON: 05/17/2022 TECHNIQUE: Single view of the chest is submitted. FINDINGS: Demonstrated are scattered senescent parenchymal change. Continued cardiomegaly with pulmonary venous congestion and tiny effusions. There appears to be mild interstitial edema. Hilar and mediastinal structures are within normal limits. Degenerative changes are seen of the dorsal spine. IMPRESSION: 1. Continued cardiomegaly with pulmonary venous congestion and tiny effusions. There appears to be m ild interstitial edema. Slight interval improvement suggested.
[2022-05-18 07:57] LABS: INR 0.9 (<1.2)
--- NOTE | 2022-05-18 07:59 | P.PN ---
Subjective Progress Note Date: 05/18/22 Principal diagnosis: Atrial flutter, typical The patient is a 72-year-old female patient with a past medical history significant for chronic hypoxic respiratory failure secondary to COPD who was admitted to the hospital with increasing shortness of breath and she was diagnosed with COPD exacerbation. We consulted to see the patient because off cardiac arrhythmia mainly atrial flutter with RVR. Beside that she did have a component of heart failure with evidence of right more than left heart failure likely secondary to cor pulmonale. May [id number] The patient was seen and evaluated this morning. She remains short of breath. She remains in atrial flutter with overall controlled heart rate. The dose of Cardizem CD orally has increased today. She continues to be congested on examination as well as by chest x-ray. She is on IV Lasix which we will continue for additional 24 hours. The pressure remains elevated going to increase the dose of losartan to 50 mg by mouth daily. For some reason she is not on anticoagulation mainly because of possible GI bleeding and that is currently in investigation. She underwent an echo which revealed normal left ventricular systolic function was no significant valvular abnormalities Objective - Vital Signs Vital signs: Vital Signs Temp 97.5 F L 05/18/22 04:00 Pulse 108 H 05/18/22 07:00 Resp 27 H 05/18/22 07:00 BP 162/120 05/18/22 07:00 Pulse Ox 90 L 05/18/22 07:00 FiO2 40 05/18/22 04:00 Intake & Output 05/17/22 05/18/22 05/18/22 18:59 06:59 18:59 Intake Total 332.461 62.299 Output Total 400 0 Balance -67.539 62.299 Weight 62 kg Intake: Intake, IV Titration 132.461 62.299 Amount Heparin Sod,Pork in 0.45% 132.461 62.299 NaCl 25,000 unit In 0.45 % NaCl 1 250ml.bag @ 12 UNITS/KG/HR 7.62 mls/hr IV .Q24H [facility] Rx#: [id number] Oral 200 Output: Urine 400 Stool 0 Other: Voiding Method Bedside Commode Bedside Commode # Voids 1 1 0 # Bowel Movements 1 - Constitutional General appearance: Present: no acute distress - Respiratory Respiratory: bilateral: diminished - Cardiovascular Rhythm: irregularly irregular - Labs CBC & Chem 7: 05/18/22 07:08 05/17/22 06:18 Labs: Abnormal Lab Results - Last 24 Hours (Table) 05/17/22 05/17/22 05/17/22 Range/Units 14:03 15:05 20:55 MCHC (31.0-37.0) g/dL Lymphocytes # (1.0-4.8) k/uL APTT 31.8 H (22.0-30.0) sec POC Glucose (mg/dL) 184 H (70-110) mg/dL Stool Occult Blood Positive H (Negative) 05/18/22 05/18/22 Range/Units 05:13 07:08 MCHC 29.9 L (31.0-37.0) g/dL Lymphocytes # 0.2 L (1.0-4.8) k/uL APTT (22.0-30.0) sec POC Glucose (mg/dL) 170 H (70-110) mg/dL Stool Occult Blood (Negative) Microbiology - Last 24 Hours (Table) 05/17/22 09:20 Gram Stain - Preliminary Sputum Sputum Culture - Preliminary Assessment and Plan Assessment: Assessment COPD exacerbation Chronic hypoxic respiratory failure Heart failure exacerbation secondary to heart failure was preserved ejection fraction was evidence of right more than left heart failure Typical atrial flutter was overall controlled heart rate Systemic hypertension Plan Increase the dose of losartan to get the pressure under control The dose of Cardizem CD has increased air earlier today Consider starting the patient on anticoagulation after ruling out GI bleeding Continue IV Lasix for additional 24 hours Follow-up with the patient
[2022-05-18] MEDS: FUROSEMIDE 10 MG/ML 4 ML VIAL IV SCH (08:11)
[2022-05-18] MEDS: DILTIAZEM CD 240 MG CAP.ER.24H PO SCH (08:12)
[2022-05-18] MEDS: DOXYCYCLINE 100 MG CAP PO SCH ×2 (08:12→21:24)
[2022-05-18] MEDS: LOSARTAN 50 MG TAB PO SCH (08:12)
[2022-05-18] MEDS: FLUTICASONE 50MCG/SPRAY NASAL 16GM EA NOSTRIL SCH (08:12)
[2022-05-18] MEDS: busPIRone HCl 5 MG TAB PO SCH ×2 (08:12→20:55)
[2022-05-18] MEDS: SYMBICORT 160-4.5 MCG INHALER INHALATION SCH (08:14)
--- NOTE | 2022-05-18 10:50 | P.PN ---
Subjective Progress Note Date: 05/18/22 This is a pleasant 72-year-old female patient with a history of chronic tobacco dependence of 50 years however quit in 2015, oxygen dependent. 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 She believes her lung function is at 43%. She had recently been hospitalized in [place] and had just been recently discharged. She was here in town with her daughter and she developed increasing shortness of breath cough congestion wheezing and presented here to the emergency room early this morning for the same. Chest x-ray reveals cardiomegaly. Mild pulmonary fibrosis. No acute heart failure. white count 5.4. Hemoglobin 11.2. Platelets 278. D-dimer 0.48. Sodium 142. Potassium 5.3. Bicarb 41. BUN 18. Creatinine 0.53. ProBNP 3390. Troponin 0.05. Newell virus by PCR not detected. She is initiated and DuoNeb inhalations, Solu- Medrol, Symbicort and empiric antibiotics in the form of doxycycline. Normal saline at 130 ML's per hour.she is seen today in contact flotation in the emergency department. Currently sitting up in a stretcher. Awake and alert in no acute distress. Breathing is somewhat improved. Patient was reevaluated today on 05/17/22, patient had to be transferred to the ICU last night mostly because she developed atrial fibrillation and RVR. Patient also developed some component of mild congestive heart failure. Had to be placed on diuretics, we had to place the patient on BiPAP last night, however she seems to be more comfortable today, she is down to 4 L nasal cannula, and last night she was on BiPAP 05/18/40%. Chest x-ray did show evidence of mild congestive heart failure. Patient was placed on Cardizem and it was already transitioned to oral Cardizem by cardiology this morning.WBC count today is 6.8 hemoglobin is 10.9 lites are normal bicarb is 46 BUN is 18 and creatinine 0.57. Chest x-ray showed cardiomegaly and mild interstitial edema. Along with COPD. The patient is seen today 05/18/2022 in follow-up in the intensive care unit. She is currently sitting up in a chair at the bedside. Awake and alert in no acute distress. She is maintaining O2 saturations in the 90s on 5 L/m per nasal cannula. She did utilize BiPAP last night 05/19 and 40% FiO2. No IV fluids. She remains in atrial fibrillation. White count 8.1. Hemoglobin 11.5. Glucose 170. She is continued on DuoNeb inhalations, Symbicort, IV Solu-Medrol. Remains on IV diuretics. Cardizem for heart rate control. Chest x-ray continued to show cardiomegaly with pulmonary venous congestion and tiny effusions. Slight improvement compared to yesterday. Objective - Vital Signs Vital signs: Vital Signs Temp 98.4 F 05/18/22 08:00 Pulse 98 05/18/22 10:00 Resp 23 05/18/22 10:00 BP 131/98 05/18/22 10:00 Pulse Ox 95 05/18/22 10:00 FiO2 40 05/18/22 04:00 Intake & Output 05/17/22 05/18/22 05/18/22 18:59 06:59 18:59 Intake Total 332.461 62.299 Output Total 400 0 250 Balance -67.539 62.299 -250 Weight 62 kg Intake: Intake, IV Titration 132.461 62.299 Amount Heparin Sod,Pork in 0.45% 132.461 62.299 NaCl 25,000 unit In 0.45 % NaCl 1 250ml.bag @ 12 UNITS/KG/HR 7.62 mls/hr IV .Q24H [facility] Rx#: [id number] Oral 200 Output: Urine 400 250 Stool 0 Other: Voiding Method Bedside Commode Bedside Commode Bedside Commode # Voids 1 1 0 # Bowel Movements 1 - Exam GENERAL EXAM: Alert, pleasant 72-year-old female patient, on 5 L nasal cannula, comfortable in no apparent distress. HEAD: Normocephalic. EYES: Normal reaction of pupils, equal size. NOSE: Clear with pink turbinates. THROAT: No erythema or exudates. NECK: No masses, no JVD. CHEST: No chest wall deformity. LUNGS: Equal air entry with bilateral end expiratory wheeze, diminished. CVS: S1 and S2 normal with no audible murmur, irregular rhythm. ABDOMEN: No hepatosplenomegaly, normal bowel sounds, no guarding or rigidity. SPINE: No scoliosis or deformity SKIN: No rashes CENTRAL NERVOUS SYSTEM: No focal deficits, tone is normal in all 4 extremities. EXTREMITIES: There is no peripheral edema. No clubbing, no cyanosis. Peripheral pulses are intact. - Labs CBC & Chem 7: 05/18/22 07:08 05/17/22 06:18 Labs: Abnormal Lab Results - Last 24 Hours (Table) 05/17/22 05/17/22 05/17/22 Range/Units 14:03 15:05 20:55 MCHC (31.0-37.0) g/dL Lymphocytes # (1.0-4.8) k/uL APTT 31.8 H (22.0-30.0) sec POC Glucose (mg/dL) 184 H (70-110) mg/dL Stool Occult Blood Positive H (Negative) 05/18/22 05/18/22 Range/Units 05:13 07:08 MCHC 29.9 L (31.0-37.0) g/dL Lymphocytes # 0.2 L (1.0-4.8) k/uL APTT (22.0-30.0) sec POC Glucose (mg/dL) 170 H (70-110) mg/dL Stool Occult Blood (Negative) Microbiology - Last 24 Hours (Table) 05/17/22 09:20 Gram Stain - Preliminary Sputum Sputum Culture - Preliminary Assessment and Plan Assessment: Acute on chronic hypoxemic respiratory failure secondary to an exacerbation of COPD. Newell virus not detected. History of chronic obstructive pulmonary disease, oxygen dependent History of 50 years of chronic tobacco dependence however quit in 2014 Atrial fibrillation/flutter Acute exacerbation of diastolic congestive heart failure Recent hospitalization in [place] Plan: The patient was seen and evaluated Chest x-ray, labs and medications reviewed Continue Solu-Medrol, DuoNeb inhalations She has declined Symbicort, discontinued Continue diuretics per cardiology Transfer out of the ICU to the selective care unit We will continue to follow I have personally seen and examined the patient, performed the documentation and the assessment and plan as written. Number of minutes spent on the visit: 10
[2022-05-18] MEDS: IPRATROPIUM-ALBUTEROL 3 ML NEB INHALATION SCH ×3 (11:27→20:18)
[2022-05-18 11:30] LABS: Glucose,Whole Blood 209 mg/dL (70-110)
[2022-05-18 16:48] LABS: Glucose,Whole Blood 125 mg/dL (70-110)
[2022-05-18] MEDS: ACETAMINOPHEN TAB 325 MG TAB PO PRN (17:02)
[2022-05-18 19:50] LABS: Glucose,Whole Blood 174 mg/dL (70-110)
--- NOTE | 2022-05-18 21:49 | P.PN ---
Subjective patient is 72-year-old lady with past medical history significant for chronic hypoxic respiratory failure, COPD, history of tobacco addiction who presented to the ER because of worsening shortness of breath. Patient was recently admitted in the hospital in [place] for COPD exacerbation and was discharged and was visiting her daughter here. Patient was using oxygen at home, normally 2 L at rest at 4 L on exertion but stated that yesterday she felt that her oxygen was not working for her. Patient was getting short of breath on exertion, also complaining of cough. Denied any chest pain. There was no complain of orthopnea or PND. Denies any swelling of feet. Patient was worked up in the ER, initial lab work showed patient to have a white count of 5.4, hemoglobin 11.2, platelet count of 278, sodium 142 potassium 5.3, bicarbonate 41, covid was negative, chest x-ray was negative for pneumonia. Patient was admitted to hospitalist service 05/18/2012 Patient breathing pattern is improving and currently she is on [address] oxygen via nasal cannula She has occult blood positive in his stool but d-dimer is negative. Sputum culture is pending Chest x-ray showed CHF Ejection fraction 55% She's on doxycycline, IV Solu-Medrol, IV Lasix 40 mg daily also as oral Cardizem 240 mg per solderer in line Protonix and its and we'll check iron studies Objective - Vital Signs Vital signs: Vital Signs Temp 98.3 F 05/18/22 12:00 Pulse 80 05/18/22 14:00 Resp 29 H 05/18/22 12:00 BP 137/65 05/18/22 12:00 Pulse Ox 93 L 05/18/22 12:00 FiO2 40 05/18/22 04:00 Intake & Output 05/17/22 05/18/22 05/18/22 18:59 06:59 18:59 Intake Total 332.461 62.299 Output Total 400 0 600 Balance -67.539 62.299 -600 Weight 62 kg Intake: Intake, IV Titration 132.461 62.299 Amount Heparin Sod,Pork in 0.45% 132.461 62.299 NaCl 25,000 unit In 0.45 % NaCl 1 250ml.bag @ 12 UNITS/KG/HR 7.62 mls/hr IV .Q24H [facility] Rx#: [id number] Oral 200 Output: Urine 400 600 Stool 0 Other: Voiding Method Bedside Commode Bedside Commode Bedside Commode # Voids 1 1 0 # Bowel Movements 1 - Exam GENERAL: The patient is alert and oriented x3, not in any acute distress. Well developed, well nourished. HEENT: Pupils are round and equally reacting to light. EOMI. No scleral icterus. No conjunctival pallor. Normocephalic, atraumatic. No pharyngeal erythema. No thyromegaly. CARDIOVASCULAR: S1 and S2 present. No murmurs, rubs, or gallops. -PULMONARY: Chest is clear to auscultation, bilateral scattered wheezing. ABDOMEN: Soft, nontender, nondistended, normoactive bowel sounds. No palpable organomegaly. MUSCULOSKELETAL: No joint swelling or deformity. EXTREMITIES: No cyanosis, clubbing, or pedal edema. NEUROLOGICAL: Gross neurological examination did not reveal any focal deficits. SKIN: No rashes. no petechiae. - Labs CBC & Chem 7: 05/18/22 07:08 05/17/22 06:18 Labs: Abnormal Lab Results - Last 24 Hours (Table) 05/17/22 05/18/22 05/18/22 Range/Units 20:55 05:13 07:08 MCHC 29.9 L (31.0-37.0) g/dL Lymphocytes # 0.2 L (1.0-4.8) k/uL POC Glucose (mg/dL) 184 H 170 H (70-110) mg/dL 05/18/22 Range/Units 11:28 MCHC (31.0-37.0) g/dL Lymphocytes # (1.0-4.8) k/uL POC Glucose (mg/dL) 209 H (70-110) mg/dL Microbiology - Last 24 Hours (Table) 05/17/22 09:20 Gram Stain - Preliminary Sputum Sputum Culture - Preliminary Assessment and Plan Assessment: Acute COPD exacerbation Acute diastolic CHF with ejection fraction 55% Acute on chronic hypoxemic respiratory failure. Chronic atrial fibrillation Elevated troponin Hyperkalemia History of tobacco addiction Plan: Continue with IV Solu-Medrol and doxycycline on Continue with Lasix prior solderer Pulmonary and cardiology team on the case End Protonix Check iron studies Labs and medication were reviewed.. Continue same treatment. Continue with symptomatic treatment. Resume home medication. Monitor lytes and vitals. DVT and GI prophylaxis. Further recommendations as per clinical course of the patient DVT prophylaxis: Subcutaneous heparin on hold because of positive occult blood in stool GI Prophylaxis: Ppi PT/OT: Pending Prognosis is guarded
[2022-05-19] MEDS: IPRATROPIUM-ALBUTEROL 3 ML NEB INHALATION PRN ×2 (03:59→23:02)
[2022-05-19] MEDS: methylPREDNISolone SOD SUCCI 125 MG/2 ML VIAL IV SCH ×3 (05:29→16:56)
[2022-05-19 05:57] LABS: Glucose,Whole Blood 138 mg/dL (70-110)
[2022-05-19] MEDS: IPRATROPIUM-ALBUTEROL 3 ML NEB INHALATION SCH ×4 (07:32→19:43)
[2022-05-19 08:20] LABS: Basophils % (A) 0 %; Eosinophils % (A) 0 %; HCT 40.7 % (34.0-46.0); HGB 12.2 gm/dL (11.4-16.0); Hypochromasia Marked; Lymphocytes # (A) 0.2 k/uL (1.0-4.8); Lymphocytes % (A) 3 %; MCH 28.5 pg (25.0-35.0); MCHC 29.9 g/dL (31.0-37.0); MCV 95.2 fL (80.0-100.0); Mean Platelet Volume 8.8; Monocytes # (A) 0.4 k/uL (0-1.0); Monocytes % (A) 5 %; Neutrophils # (A) 8.1 k/uL (1.3-7.7); Neutrophils % (A) 91 %; Platelet Count 357 k/uL (150-450); RBC 4.27 m/uL (3.80-5.40); RDW 13.3 % (11.5-15.5); WBC 8.9 k/uL (3.8-10.6)
[2022-05-19 08:30] LABS: African American GFR (CKD) >90 (>60 ml/min/1.73 sqM); Blood Urea Nitrogen 24 mg/dL (7-17); Calcium 9.1 mg/dL (8.4-10.2); Chloride 84 mmol/L (98-107); Glucose 161 mg/dL (74-99); Non-African American GFR(CKD) 89 (>60 ml/min/1.73 sqM); Sodium 142 mmol/L (137-145)
[2022-05-19 08:39] LABS: Anion Gap 3 mmol/L
[2022-05-19 08:43] LABS: Carbon Dioxide 55 mmol/L (22-30)
[2022-05-19] MEDS: busPIRone HCl 5 MG TAB PO SCH ×2 (08:58→21:02)
[2022-05-19] MEDS: LOSARTAN 50 MG TAB PO SCH (08:59)
[2022-05-19] MEDS: PANTOPRAZOLE 40 MG/10 ML VIAL IVP SCH (08:59)
[2022-05-19] MEDS: DILTIAZEM CD 240 MG CAP.ER.24H PO SCH (08:59)
[2022-05-19] MEDS: FUROSEMIDE 10 MG/ML 4 ML VIAL IV SCH (09:00)
[2022-05-19] MEDS: DOXYCYCLINE 100 MG CAP PO SCH ×2 (09:01→21:03)
[2022-05-19] MEDS: FLUTICASONE 50MCG/SPRAY NASAL 16GM EA NOSTRIL SCH (09:01)
--- NOTE | 2022-05-19 10:14 | P.PN ---
Subjective patient is 72-year-old lady with past medical history significant for chronic hypoxic respiratory failure, COPD, history of tobacco addiction who presented to the ER because of worsening shortness of breath. Patient was recently admitted in the hospital in [place] for COPD exacerbation and was discharged and was visiting her daughter here. Patient was using oxygen at home, normally 2 L at rest at 4 L on exertion but stated that yesterday she felt that her oxygen was not working for her. Patient was getting short of breath on exertion, also complaining of cough. Denied any chest pain. There was no complain of orthopnea or PND. Denies any swelling of feet. Patient was worked up in the ER, initial lab work showed patient to have a white count of 5.4, hemoglobin 11.2, platelet count of 278, sodium 142 potassium 5.3, bicarbonate 41, covid was negative, chest x-ray was negative for pneumonia. Patient was admitted to hospitalist service 05/18/2012 Patient breathing pattern is improving and currently she is on [address] oxygen via nasal cannula She has occult blood positive in his stool but d-dimer is negative. Sputum culture is pending Chest x-ray showed CHF Ejection fraction 55% She's on doxycycline, IV Solu-Medrol, IV Lasix 40 mg daily also as oral Cardizem 240 mg per registered respiratory therapist in line Protonix and its and we'll check iron studies 05/19/2022 Patient was on BiPAP this morning, able to come the gait and interactive, she is fully awake, she is not in distress. Over she is slowly and gradually improving regarding her COPD while she is on doxycycline, IV Solu-Medrol and IV Lasix 40 mg daily. Also patient with diastolic CHF. She has chronic atrial fibrillation, not on anticoagulation. Her occult blood in the stool is positive however patient is not anemic, surgery team were consulted. Objective - Vital Signs Vital signs: Vital Signs Temp 98 F 05/19/22 08:00 Pulse 88 05/19/22 08:00 Resp 23 05/19/22 08:00 BP 145/57 05/19/22 08:00 Pulse Ox 96 05/19/22 08:00 FiO2 40 05/19/22 08:00 Intake & Output 05/18/22 05/19/22 05/19/22 18:59 06:59 18:59 Intake Total 480 Output Total 800 200 Balance -320 -200 Intake: Oral 480 Output: Urine 800 200 Other: Voiding Method Bedside Commode Bedside Commode # Voids 1 1 - Exam GENERAL: The patient is alert and oriented x3, not in any acute distress. Well developed, well nourished. HEENT: Pupils are round and equally reacting to light. EOMI. No scleral icterus. No conjunctival pallor. Normocephalic, atraumatic. No pharyngeal erythema. No thyromegaly. CARDIOVASCULAR: S1 and S2 present. No murmurs, rubs, or gallops. -PULMONARY: Chest is clear to auscultation, bilateral scattered wheezing. ABDOMEN: Soft, nontender, nondistended, normoactive bowel sounds. No palpable organomegaly. MUSCULOSKELETAL: No joint swelling or deformity. EXTREMITIES: No cyanosis, clubbing, or pedal edema. NEUROLOGICAL: Gross neurological examination did not reveal any focal deficits. SKIN: No rashes. no petechiae. - Labs CBC & Chem 7: 05/19/22 07:43 05/19/22 07:43 Labs: Abnormal Lab Results - Last 24 Hours (Table) 05/18/22 05/18/22 05/18/22 Range/Units 11:28 16:45 19:49 MCHC (31.0-37.0) g/dL Neutrophils # (1.3-7.7) k/uL Lymphocytes # (1.0-4.8) k/uL Chloride (98-107) mmol/L Carbon Dioxide (22-30) mmol/L BUN (7-17) mg/dL Glucose (74-99) mg/dL POC Glucose (mg/dL) 209 H 125 H 174 H (70-110) mg/dL 05/19/22 05/19/22 05/19/22 Range/Units 05:56 07:43 07:43 MCHC 29.9 L (31.0-37.0) g/dL Neutrophils # 8.1 H (1.3-7.7) k/uL Lymphocytes # 0.2 L (1.0-4.8) k/uL Chloride 84 L (98-107) mmol/L Carbon Dioxide 55 H* (22-30) mmol/L BUN 24 H (7-17) mg/dL Glucose 161 H (74-99) mg/dL POC Glucose (mg/dL) 138 H (70-110) mg/dL Microbiology - Last 24 Hours (Table) 05/17/22 09:20 Gram Stain - Preliminary Sputum Sputum Culture - Preliminary Assessment and Plan Assessment: Acute COPD exacerbation Acute diastolic CHF with ejection fraction 55% Acute on chronic hypoxemic respiratory failure. Chronic atrial fibrillation Elevated troponin Hyperkalemia History of tobacco addiction Plan: Continue with IV Solu-Medrol and doxycycline on Continue with Lasix per registered respiratory therapist Pulmonary and cardiology team on the case Continue with Protonix Check iron studies Follow-up with surgery team Labs and medication were reviewed.. Continue same treatment. Continue with symptomatic treatment. Resume home medication. Monitor lytes and vitals. DVT and GI prophylaxis. Further recommendations as per clinical course of the patient DVT prophylaxis: Subcutaneous heparin on hold because of positive occult blood in stool GI Prophylaxis: Ppi PT/OT: Pending Prognosis is guarded
[2022-05-19 11:32] LABS: Glucose,Whole Blood 183 mg/dL (70-110)
--- NOTE | 2022-05-19 11:34 | P.PN ---
Subjective The patient is a 72-year-old female patient with a past medical history significant for COPD, hypertension, asthma, former tobacco use. Does not follow with a investments manager. She presented to the ER with chronic hypoxic respiratory failure secondary to COPD who was admitted to the hospital with increasing shortness of breath and she was diagnosed with COPD exacerbation. We consulted to see the patient because off cardiac arrhythmia mainly atrial flutter with RVR and mildly elevated troponin. Beside that she did have a component of heart failure with evidence of right more than left heart failure likely secondary to cor pulmonale. She was initially in the ICU, now transferred to . 05/19/2022 The patient was seen and evaluated this morning. She remains short of breath. Edema has resolved. She remains in atrial flutter/atrial fibrillation with overall controlled heart rate. She is on 240mg of Cardizem CD. She continues to be congested on examination. She is on IV Lasix 40mg daily. For some reason she is not on anticoagulation mainly because of possible GI bleeding and that is currently in investigation. She underwent an echo which revealed normal left ventricular systolic function 55% with no significant valvular abnormalities GENERAL: Well-appearing, well-nourished and in no acute distress. NECK: Supple without JVD or thyromegaly. LUNGS: Breath sounds crackles to auscultation bilateral bases. Respiration equal and unlabored. No wheezes, rales or rhonchi. HEART: Irregular rate and rhythm without murmurs, rubs or gallops. S1 and S2 heard. EXTREMITIES: Normal range of motion, no edema. No clubbing or cyanosis. Per ipheral pulses intact. ASSESSMENT Acute on chronic heart failure with preserved ejection fraction Atrial flutter with RVR, new onset, not on anticoagulation for possible GI bleed Acute COPD exacerbation Acute on chronic hypoxic respiratory failure Elevated troponin, likely type II mechanism secondary to hypoxia Hypertension Anemia Positive stool occult blood, being investigated by primary PLAN Continue IV Lasix for additional 24 hours Continue cardizem and losartan Recommend anticoagulation, but on hold secondary to investigation for GI bleed with positive stool occult blood Monitor I/Os, daily weights, renal function and electrolytes Further recommendations based on clinical course Nurse Practitioner note has been reviewed, I agree with a documented findings and plan of care. Patient was seen and examined. Objective - Vital Signs Vital signs: Vital Signs Temp 97.9 F 05/18/22 19:59 Pulse 82 12/06/22 07:43 Resp 24 05/19/22 07:43 BP 138/58 05/19/22 04:00 Pulse Ox 99 05/19/22 07:32 FiO2 40 05/19/22 07:32 Intake & Output 05/18/22 05/19/22 05/19/22 18:59 06:59 18:59 Intake Total 480 Output Total 800 200 Balance -320 -200 Intake: Oral 480 Output: Urine 800 200 Other: Voiding Method Bedside Commode Bedside Commode # Voids 1 1 - Labs CBC & Chem 7: 05/19/22 07:43 05/19/22 07:43 Labs: Abnormal Lab Results - Last 24 Hours (Table) 05/18/22 05/18/22 05/18/22 Range/Units 11:28 16:45 19:49 POC Glucose (mg/dL) 209 H 125 H 174 H (70-110) mg/dL 05/19/22 Range/Units 05:56 POC Glucose (mg/dL) 138 H (70-110) mg/dL Microbiology - Last 24 Hours (Table) 05/17/22 09:20 Gram Stain - Preliminary Sputum Sputum Culture - Preliminary
--- NOTE | 2022-05-19 14:26 | P.PN ---
Subjective Progress Note Date: 05/19/22 Principal diagnosis: Shortness of breath. This is a pleasant 72-year-old female patient with a history of chronic tobacco dependence of 50 years however quit in 2015, oxygen dependent. 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 She believes her lung function is at 43%. She had recently been hospitalized in [place] and had just been recently discharged. She was here in town with her daughter and she developed increasing shortness of breath cough congestion wheezing and presented here to the emergency room early this morning for the same. Chest x-ray reveals card iomegaly. Mild pulmonary fibrosis. No acute heart failure. white count 5.4. Hemoglobin 11.2. Platelets 278. D-dimer 0.48. Sodium 142. Potassium 5.3. Bicarb 41. BUN 18. Creatinine 0.53. ProBNP 3390. Troponin 0.05. Newell virus by PCR not detected. She is initiated and DuoNeb inhalations, Solu-Medrol, Symbicort and empiric antibiotics in the form of doxycycline. Normal saline at 130 ML's per hour.she is seen today in contact flotation in the emergency department. Currently sitting up in a stretcher. Awake and alert in no acute distress. Breathing is somewhat improved. Patient was reevaluated today on 05/17/22, patient had to be transferred to the ICU last night mostly because she developed atrial fibrillation and RVR. Patient also developed some component of mild congestive heart failure. Had to be placed on diuretics, we had to place the patient on BiPAP last night, however she seems to be more comfortable today, she is down to 4 L nasal cannula, and last night she was on BiPAP //40%. Chest x-ray did show evidence of mild congestive heart failure. Patient was placed on Cardizem and it was already transitioned to oral Cardizem by cardiology this morning.WBC count today is 6.8 hemoglobin is 10.9 lites are normal bicarb is 46 BUN is 18 and creatinine 0.57. Chest x-ray showed cardiomegaly and mild interstitial edema. Along with COPD. The patient is seen today 05/18/2022 in follow-up in the intensive care unit. She is currently sitting up in a chair at the bedside. Awake and alert in no acute distress. She is maintaining O2 saturations in the 90s on 5 L/m per nasal cannula. She did utilize BiPAP last night 12/6 and 40% FiO2. No IV fluids. She remains in atrial fibrillation. White count 8.1. Hemoglobin 11.5. Glucose 170. She is continued on DuoNeb inhalations, Symbicort, IV Solu-Medrol. Remains on IV diuretics. Cardizem for heart rate control. Chest x-ray continued to show cardiomegaly with pulmonary venous congestion and tiny effusi ons. Slight improvement compared to yesterday. Progress note dated 05/19/2022. This is a 72-year-old female that we saw yesterday in the intensive care unit. Today, she is seen in room 357. Currently, she is on 4 L of oxygen. No IV fluids. She does use BiPAP intermittently with settings of 12/6 and 40%. Currently resting comfortably. Feeling better. White count 8.9, hemoglobin 12.2, hematocrit 40.7, and platelet count 357,000. Sodium 142, potassium 4, chlorides 84, and CO2 55. BUN and creatinine were 24 and 0.69. Objective - Vital Signs Vital signs: Vital Signs Temp 98 F 05/19/22 08:00 Pulse 82 05/19/22 11:24 Resp 18 05/19/22 11:24 BP 145/57 05/19/22 08:00 Pulse Ox 96 05/19/22 08:00 FiO2 40 05/19/22 08:00 Intake & Output 05/18/22 05/19/22 05/19/22 18:59 06:59 18:59 Intake Total 480 Output Total 800 400 Balance -320 -400 Intake: Oral 480 Output: Urine 800 400 Other: Voiding Method Bedside Commode Bedside Commode # Voids 1 1 - Exam No acute distress, oriented 3. Obese white female, currently on 4 L. No respiratory distress. No conversational dyspnea. HEENT examination is grossly unremarkable. Neck supple. Full range of motion. No adenopathy thyromegaly or neck vein distention. Cardiovascular examination reveals regular rhythm rate. S1-S2 normal. No S3 or S4. No discernible murmur noted. Heart sounds are distant. Heart rate 82 bpm. Lungs reveal scattered expiratory wheezes and rhonchi. Breath sounds are equal bilaterally but diminished throughout. No crackles. Breath sounds equal. Saturations mid 90s. Abdomen soft bowel sounds are heard. No masses or tenderness. Extremities are intact. No cyanosis clubbing or edema. Skin is without rash or lesion. Neurologic examination is brief but nonfocal. - Labs CBC & Chem 7: 05/19/22 07:43 05/19/22 07:43 Labs: Abnormal Lab Results - Last 24 Hours (Table) 05/18/22 05/18/22 05/19/22 Range/Units 16:45 19:49 05:56 MCHC (31.0-37.0) g/dL Neutrophils # (1.3-7.7) k/uL Lymphocytes # (1.0-4.8) k/uL Chloride (98-107) mmol/L Carbon Dioxide (22-30) mmol/L BUN (7-17) mg/dL Glucose (74-99) mg/dL POC Glucose (mg/dL) 125 H 174 H 138 H (70-110) mg/dL 05/19/22 05/19/22 05/19/22 Range/Units 07:43 07:43 11:31 MCHC 29.9 L (31.0-37.0) g/dL Neutrophils # 8.1 H (1.3-7.7) k/uL Lymphocytes # 0.2 L (1.0-4.8) k/uL Chloride 84 L (98-107) mmol/L Carbon Dioxide 55 H* (22-30) mmol/L BUN 24 H (7-17) mg/dL Glucose 161 H (74-99) mg/dL POC Glucose (mg/dL) 183 H (70-110) mg/dL Microbiology - Last 24 Hours (Table) 05/17/22 09:20 Gram Stain - Final Sputum Sputum Culture - Final Assessment and Plan Assessment: Acute on chronic hypoxemic respiratory failure secondary to an exacerbation of COPD. History of chronic obstructive pulmonary disease, oxygen dependent, and severe. History of 50 years of chronic tobacco dependence, however quit in 2014. Atrial fibrillation/flutter. Acute exacerbation of diastolic congestive heart failure. Recent hospitalization in [place], [place]. Obesity. Plan: Plan dated 05/19/2022. The patient appears to be doing reasonably well. She feels better. She continues on Solu-Medrol, DuoNeb, but has declined Symbicort. We will continue to follow the patient make recommendations along the way. She clearly has severe chronic hypoxemic and hypercapnic respiratory failure. Prognosis is guarded. Saturations are perfectly adequate between 88 and 92%. Oxygen should be titrated carefully. Time with Patient: Less than 30
--- NOTE | 2022-05-19 15:17 | P.GSCN ---
History of Present Illness Consult date: 05/19/22 History of present illness: CHIEF COMPLAINT: Shortness of breath Reason for consult: Positive fecal occult blood, had been on IV heparin and history of anemia HISTORY OF PRESENT ILLNESS: This is a 72-year-old female who presented to the hospital with worsening shortness of breath. She was found to have a COPD exacerbation and congestive heart failure exacerbation. She was also in atrial flutter with RVR. She is evaluated multiple consultants. She was placed on IV heparin for her atrial flutter. And within about 24 hours after starting the IV heparin patient had stool positive for occult blood. Her hemoglobin has been stable. Hemoglobin on admission 11.2 and today's hemoglobin is 12.2. Patient reports having issues with a GI bleed about 3 years ago in which she did require EGD colonoscopy and capsule endoscopy in 2019. Patient reports that results w ere negative. Patient has had prior GI bleeds when started on anticoagulation. IV heparin is currently off. Patient's stools were black will she was on the oral iron. She reports that now that she is off of the iron her stools are brown. She denies any abdominal pain. Denies any blood in her stools. Patient seen and examined with Dr. Torres PAST MEDICAL HISTORY: See below PAST SURGICAL HISTORY: See below MEDICATIONS: See below ALLERGIES: See below SOCIAL HISTORY: No illicit drug use. REVIEW OF SYSTEMS: CONSTITUTIONAL: Denies fever or chills. HEENT: Denies blurred vision, vision changes, or eye pain. Denies hemoptysis CARDIOVASCULAR: Denies chest pain or pressure. RESPIRATORY: No shortness of breath. GASTROINTESTINAL: See HPI for pertinent findings HEMATOLOGIC: Denies bleeding disorders. GENITOURINARY: Denies any blood in urine or increased urinary frequency. SKIN: Denies pruitis. Denies rash. PHYSICAL EXAM: VITAL SIGNS: Reviewed GENERAL: Well-developed in no acute distress. HEENT: No sclera icterus. Extraocular movements grossly intact. Moist buccal mucosa. Head is atraumatic, normocephalic. No nasal drainage. ABDOMEN: Soft. Nondistended. Nontender NEUROLOGIC: Alert and oriented. Cranial nerves II through XII grossly intact. LABORATORY DATA: WBC is 8.9 Hgb 12.2 today. 11.2 on admission and the lowest hemoglobin was 10.9 Sodium 142 potassium 4.0 CO2 55 creatinine 0.69 Glucose 183 Stool for occult blood positive IMAGING: ASSESSMENT: 1. Possible GI Bleed. Fecal occult blood positive while on IV heparin 2. Prior history of GI bleed with EGD, colonoscopy and capsule endoscopy completed in 2019 per patient findings were unremarkable 3. History of iron deficiency anemia PLAN: -Possible EGD and colonoscopy when medically stable -Continue to hold all anticoagulation -Continue supportive care -Continue to monitor for any signs or symptoms of bleeding -Continue to monitor hemoglobin -Continue PPI Thank you for this consultation Physician Trustee Of Estate note has been reviewed by physician. Signing provider agrees with the documented findings, assessment, and plan of care. Past Medical History Past Medical History: Asthma, COPD, Hypertension, Pneumonia History of Any Multi-Drug Resistant Organisms: None Reported Past Surgical History: Tubal Ligation Past Anesthesia/Blood Transfusion Reactions: No Reported Reaction Past Psychological History: Anxiety Smoking Status: Former smoker Past Alcohol Use History: Occasional Additional Past Alcohol Use History / Comment(s): Patient states she drinks on weekends only about 8 to 10 beers Medications and Allergies Home Medications Medication Instructions Recorded Confirmed Type Albuterol Sulfate [Albuterol 2 puff PO RT-Q6H PRN 05/16/22 05/16/22 History Sulfate Hfa] Alendronate Sodium [Fosamax] 70 mg PO WEEKLY 05/16/22 05/16/22 History Famotidine [Pepcid] 20 mg PO DAILY 05/16/22 05/16/22 History Fluticasone Nasal [place] [Flonase 1 spray EA NOSTRIL DAILY 05/16/22 05/16/22 History Nasal [place]] HYDROcodone/APAP 5-325MG [[place] 1 tab PO BID PRN 05/16/22 05/16/22 History 5-325] Hydroxychloroquine Sulfate 200 mg PO DAILY 05/16/22 05/16/22 History [Plaquenil] Ipratropium-Albuterol Nebulize 3 ml INHALATION RT-TID PRN 05/16/22 05/16/22 History [Duoneb 0.5 mg-3 mg/3 ml Soln] Pregabalin [Lyrica] 150 mg PO DAILY 05/16/22 05/16/22 History busPIRone HCL [Buspar] 7.5 mg PO BID 05/16/22 05/16/22 History dilTIAZem HCL [dilTIAZem HCL 24Hr 120 mg PO DAILY 05/16/22 05/16/22 History ER (CD)] predniSONE [Deltasone] 20 mg PO BID 05/16/22 05/16/22 History Allergies Allergy/AdvReac Type Severity Reaction Status Date / Time lorazepam [From Ativan] Allergy Hallucinati Verified 05/16/22 11:31 ons Surgical - Exam Vital Signs Temp Pulse Resp BP Pulse Ox 97.8 F 99 20 152/83 99 05/16/22 04:30 05/16/22 04:30 05/16/22 04:30 05/16/22 04:30 05/16/22 04:30 Results - Labs 05/19/22 07:43 05/19/22 07:43 Abnormal Lab Results - Last 24 Hours (Table) 05/18/22 05/18/22 05/18/22 Range/Units 11:28 16:45 19:49 MCHC (31.0-37.0) g/dL Neutrophils # (1.3-7.7) k/uL Lymphocytes # (1.0-4.8) k/uL Chloride (98-107) mmol/L Carbon Dioxide (22-30) mmol/L BUN (7-17) mg/dL Glucose (74-99) mg/dL POC Glucose (mg/dL) 209 H 125 H 174 H (70-110) mg/dL 05/19/22 05/19/22 05/19/22 Range/Units 05:56 07:43 07:43 MCHC 29.9 L (31.0-37.0) g/dL Neutrophils # 8.1 H (1.3-7.7) k/uL Lymphocytes # 0.2 L (1.0-4.8) k/uL Chloride 84 L (98-107) mmol/L Carbon Dioxide 55 H* (22-30) mmol/L BUN 24 H (7-17) mg/dL Glucose 161 H (74-99) mg/dL POC Glucose (mg/dL) 138 H (70-110) mg/dL Microbiology - Last 24 Hours (Table) 05/17/22 09:20 Gram Stain - Preliminary Sputum Sputum Culture - Preliminary Diabetes panel 05/19/22 Range/Units 07:43 Sodium 142 (137-145) mmol/L Potassium 4.0 (3.5-5.1) mmol/L Chloride 84 L (98-107) mmol/L Carbon Dioxide 55 H* (22-30) mmol/L BUN 24 H (7-17) mg/dL Creatinine 0.69 (0.52-1.04) mg/dL Glucose 161 H (74-99) mg/dL Calcium 9.1 (8.4-10.2) mg/dL Calcium panel 05/19/22 Range/Units 07:43 Calcium 9.1 (8.4-10.2) mg/dL Pituitary panel 05/19/22 Range/Units 07:43 Sodium 142 (137-145) mmol/L Potassium 4.0 (3.5-5.1) mmol/L Chloride 84 L (98-107) mmol/L Carbon Dioxide 55 H* (22-30) mmol/L BUN 24 H (7-17) mg/dL Creatinine 0.69 (0.52-1.04) mg/dL Glucose 161 H (74-99) mg/dL Calcium 9.1 (8.4-10.2) mg/dL Adrenal panel 05/19/22 Range/Units 07:43 Sodium 142 (137-145) mmol/L Potassium 4.0 (3.5-5.1) mmol/L Chloride 84 L (98-107) mmol/L Carbon Dioxide 55 H* (22-30) mmol/L BUN 24 H (7-17) mg/dL Creatinine 0.69 (0.52-1.04) mg/dL Glucose 161 H (74-99) mg/dL Calcium 9.1 (8.4-10.2) mg/dL
[2022-05-19 16:51] LABS: Glucose,Whole Blood 228 mg/dL (70-110)
[2022-05-19] MEDS: HYDROcodone/APAP 5-325MG 1 EACH TAB PO PRN (16:55)
[2022-05-19 18:09] LABS: % Iron Saturation 14.49 (12.00-45.00); Iron 58 ug/dL (50-170); Total Iron Binding Capacity 399 ug/dL (228-460)
[2022-05-19 19:53] LABS: Glucose,Whole Blood 398 mg/dL (70-110)
[2022-05-19] MEDS ORDERED: DEXTROSE 50% SYRINGE 50 ML IVP PRN ×2 (19:56)
[2022-05-19] MEDS: INSULIN ASPART (NovoLOG) 100 UNIT/ML VIAL SQ SCH (21:03)
[2022-05-20] MEDS: IPRATROPIUM-ALBUTEROL 3 ML NEB INHALATION PRN (04:19)
[2022-05-20] MEDS: methylPREDNISolone SOD SUCCI 125 MG/2 ML VIAL IV SCH ×5 (05:06→23:57)
[2022-05-20 05:56] LABS: Glucose,Whole Blood 162 mg/dL (70-110)
[2022-05-20] MEDS: INSULIN ASPART (NovoLOG) 100 UNIT/ML VIAL SQ SCH ×4 (06:25→21:17)
[2022-05-20 07:36] LABS: HCT 36.8 % (34.0-46.0); HGB 11.2 gm/dL (11.4-16.0); Hypochromasia Marked; MCH 28.4 pg (25.0-35.0); MCHC 30.4 g/dL (31.0-37.0); MCV 93.5 fL (80.0-100.0); Mean Platelet Volume 9.2; Platelet Count 240 k/uL (150-450); RBC 3.94 m/uL (3.80-5.40); RDW 13.1 % (11.5-15.5); WBC 7.2 k/uL (3.8-10.6)
[2022-05-20 07:55] LABS: African American GFR (CKD) >90 (>60 ml/min/1.73 sqM); Blood Urea Nitrogen 32 mg/dL (7-17); Calcium 8.6 mg/dL (8.4-10.2); Chloride 84 mmol/L (98-107); Glucose 135 mg/dL (74-99); Non-African American GFR(CKD) >90 (>60 ml/min/1.73 sqM); Sodium 135 mmol/L (137-145)
[2022-05-20 08:03] LABS: Anion Gap 3 mmol/L
[2022-05-20 08:04] LABS: Carbon Dioxide 48 mmol/L (22-30); Potassium 4.3 mmol/L (3.5-5.1)
[2022-05-20] MEDS: IPRATROPIUM-ALBUTEROL 3 ML NEB INHALATION SCH ×4 (08:53→22:13)
[2022-05-20] MEDS: FUROSEMIDE 40 MG TAB PO SCH (10:04)
[2022-05-20] MEDS: DOXYCYCLINE 100 MG CAP PO SCH ×2 (10:04→21:53)
[2022-05-20] MEDS: FLUTICASONE 50MCG/SPRAY NASAL 16GM EA NOSTRIL SCH (10:04)
[2022-05-20] MEDS: PANTOPRAZOLE 40 MG/10 ML VIAL IVP SCH (10:04)
[2022-05-20] MEDS: LOSARTAN 50 MG TAB PO SCH (10:05)
[2022-05-20] MEDS: busPIRone HCl 5 MG TAB PO SCH ×2 (10:05→21:17)
[2022-05-20] MEDS: DILTIAZEM CD 240 MG CAP.ER.24H PO SCH (10:05)
--- NOTE | 2022-05-20 10:07 | P.PN ---
Subjective The patient is a 72-year-old female patient with a past medical history significant for COPD, hypertension, asthma, former tobacco use. Does not follow with a ultrasound applications specialist. She presented to the ER with chronic hypoxic respiratory failure secondary to COPD who was admitted to the hospital with increasing shortness of breath and she was diagnosed with COPD exacerbation. We consulted to see the patient because off cardiac arrhythmia mainly atrial flutter with RVR and mildly elevated troponin. Beside that she did have a component of heart failure with evidence of right more than left heart failure likely secondary to cor pulmonale. She was initially in the ICU, now transferred to . 05/20/2022 The patient was seen and evaluated this morning. Her breathing has improved. Denies any shortness of breath this morning. Edema has resolved. She remains in atrial flutter/atrial fibrillation with overall controlled heart rate. She is on 240mg of Cardizem CD. She is on IV Lasix 40mg daily. For some reason she is not on anticoagulation mainly because of possible GI bleeding and that is currently in investigation. She underwent an echo which revealed normal left ventricular systolic function 55% with no significant valvular abnormalities GENERAL: Well-appearing, well-nourished and in no acute distress. NECK: Supple without JVD LUNGS: Breath sounds crackles to auscultation bilateral bases. Respiration equal and unlabored. No wheezes, rales or rhonchi. HEART: Irregular rate and rhythm without murmurs, rubs or gallops. S1 and S2 heard. EXTREMITIES: Normal range of motion, no edema. No clubbing or cyanosis. Peripheral pulses intact. ASSESSMENT Acute on chronic heart failure with preserved ejection fraction Atrial flutter with RVR, new onset, not on anticoagulation for possible GI bleed Acute COPD exacerbation Acute on chronic hypoxic respiratory failure Elevated troponin, likely type II mechanism secondary to hypoxia Hypertension Anemia Positive stool occult blood, being investigated by primary PLAN Transition to PO Lasix Continue cardizem and losartan Recommend to start anticoagulation, but on hold secondary to investigation for GI bleed with positive stool occult blood. Surgery has evaluated the patient. Plan for possible EGD/Colonoscopy. Recommend continuing to hold anticoagulation at this time. Start anticoagulation when cleared by surgery We will follow the patient as needed. Follow up outpatient with Dr. Clark. Nurse Practitioner note has been reviewed, I agree with a documented findings and plan of care. Patient was seen and examined. Objective - Vital Signs Vital signs: Vital Signs Temp 98.2 F 05/20/22 00:06 Pulse 75 05/20/22 09:14 Resp 20 05/20/22 03:59 BP 150/68 05/20/22 03:59 Pulse Ox 94 L 05/20/22 03:59 FiO2 40 05/19/22 08:00 Intake & Output 05/19/22 05/20/22 05/20/22 18:59 06:59 18:59 Intake Total 80 540 118 Output Total 400 500 Balance -320 40 118 Intake: Oral 80 540 118 Output: Urine 400 500 Other: Voiding Method Bedside Commode # Voids 2 - Labs CBC & Chem 7: 05/20/22 07:05 05/20/22 07:05 Labs: Abnormal Lab Results - Last 24 Hours (Table) 05/19/22 05/19/22 05/19/22 Range/Units 11:31 16:50 19:49 Hgb (11.4-16.0) gm/dL MCHC (31.0-37.0) g/dL Sodium (137-145) mmol/L Chloride (98-107) mmol/L Carbon Dioxide (22-30) mmol/L BUN (7-17) mg/dL Creatinine (0.52-1.04) mg/dL Glucose (74-99) mg/dL POC Glucose (mg/dL) 183 H 228 H 398 H (70-110) mg/dL 05/20/22 05/20/22 05/20/22 Range/Units 05:54 07:05 07:05 Hgb 11.2 L (11.4-16.0) gm/dL MCHC 30.4 L (31.0-37.0) g/dL Sodium 135 L (137-145) mmol/L Chloride 84 L (98-107) mmol/L Carbon Dioxide 48 H* (22-30) mmol/L BUN 32 H (7-17) mg/dL Creatinine 0.48 L (0.52-1.04) mg/dL Glucose 135 H (74-99) mg/dL POC Glucose (mg/dL) 162 H (70-110) mg/dL Microbiology - Last 24 Hours (Table) 05/17/22 09:20 Gram Stain - Final Sputum Sputum Culture - Final
[2022-05-20 11:36] LABS: Glucose,Whole Blood 180 mg/dL (70-110)
[2022-05-20] MEDS ORDERED: PEG 3350 (236 GM/BTL) + LYTES 4,000 ML BOTTLE PO ONE (12:30)
--- NOTE | 2022-05-20 14:08 | P.PN ---
Subjective Progress Note Date: 05/20/22 CHIEF COMPLAINT: Fecal occult blood positive HISTORY OF PRESENT ILLNESS: Patient hospitalized with COPD exacerbation and CHF exacerbation. She also had atrial flutter with RVR and had been on IV heparin. Patient had stool for occult blood positive will on IV heparin. Hemoglobin has remained stable at 11.2. Patient denies any blood in her stools. She did report a small black/brown bowel movement this morning. She denies any abdominal pain. Initially we planned to proceed with endoscopies. However, family would like to hold off on endoscopies at this time. Patient seen and examined with Dr. segovia PHYSICAL EXAM: VITAL SIGNS: Reviewed. GENERAL: Well-developed in no acute distress. HEENT: No sclera icterus. Extraocular movements grossly intact. Moist buccal mucosa. Head is atraumatic, normocephalic. ABDOMEN: Soft. Nondistended. Nontender. NEUROLOGIC: Alert and oriented. Cranial nerves II through XII grossly intact. ASSESSMENT: 1. Possible GI Bleed. Fecal occult blood positive while on IV heparin 2. Prior history of GI bleed with EGD, colonoscopy and capsule endoscopy completed in 2019 per patient findings were unremarkable 3. History of iron deficiency anemia PLAN: -Would recommend endoscopies when patient is medically stable. At this time patient's family is requesting to hold off on endoscopies -Continue to hold anticoagulation -Continue PPI -Continue to monitor for any signs or symptoms of bleeding -Start regular diet Physician Electronics System Mechanic note has been reviewed by physician. Signing provider agrees with the documented findings, assessment, and plan of care. Objective - Vital Signs Vital signs: Vital Signs Temp 98.2 F 05/20/22 08:00 Pulse 78 05/20/22 11:59 Resp 18 05/20/22 08:00 BP 125/79 05/20/22 08:00 Pulse Ox 91 L 05/20/22 08:00 FiO2 40 05/19/22 08:00 Intake & Output 05/19/22 05/20/22 05/20/22 18:59 06:59 18:59 Intake Total 80 540 118 Output Total 400 500 Balance -320 40 118 Intake: Oral 80 540 118 Output: Urine 400 500 Other: Voiding Method Bedside Commode # Voids 2 1 # Bowel Movements 1 - Labs CBC & Chem 7: 05/20/22 07:05 05/20/22 07:05 Labs: Abnormal Lab Results - Last 24 Hours (Table) 05/19/22 05/19/22 05/20/22 Range/Units 16:50 19:49 05:54 Hgb (11.4-16.0) gm/dL MCHC (31.0-37.0) g/dL Sodium (137-145) mmol/L Chloride (98-107) mmol/L Carbon Dioxide (22-30) mmol/L BUN (7-17) mg/dL Creatinine (0.52-1.04) mg/dL Glucose (74-99) mg/dL POC Glucose (mg/dL) 228 H 398 H 162 H (70-110) mg/dL 05/20/22 05/20/22 05/20/22 Range/Units 07:05 07:05 11:35 Hgb 11.2 L (11.4-16.0) gm/dL MCHC 30.4 L (31.0-37.0) g/dL Sodium 135 L (137-145) mmol/L Chloride 84 L (98-107) mmol/L Carbon Dioxide 48 H* (22-30) mmol/L BUN 32 H (7-17) mg/dL Creatinine 0.48 L (0.52-1.04) mg/dL Glucose 135 H (74-99) mg/dL POC Glucose (mg/dL) 180 H (70-110) mg/dL Microbiology - Last 24 Hours (Table) 05/17/22 09:20 Gram Stain - Final Sputum Sputum Culture - Final
--- NOTE | 2022-05-20 14:24 | P.PN ---
Subjective Progress Note Date: 05/20/22 Principal diagnosis: Shortness of breath. This is a pleasant 72-year-old female patient with a history of chronic tobacco dependence of 50 years however quit in 2015, oxygen dependent. 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 She believes her lung function is at 43%. She had recently been hospitalized in [place] and had just been recently discharged. She was here in town with her daughter and she developed increasing shortness of breath cough congestion wheezing and presented here to the emergency room early this morning for the same. Chest x-ray reveals card iomegaly. Mild pulmonary fibrosis. No acute heart failure. white count 5.4. Hemoglobin 11.2. Platelets 278. D-dimer 0.48. Sodium 142. Potassium 5.3. Bicarb 41. BUN 18. Creatinine 0.53. ProBNP 3390. Troponin 0.05. [place] virus by PCR not detected. She is initiated and DuoNeb inhalations, Solu-Medrol, Symbicort and empiric antibiotics in the form of doxycycline. Normal saline at 130 ML's per hour.she is seen today in contact flotation in the emergency department. Currently sitting up in a stretcher. Awake and alert in no acute distress. Breathing is somewhat improved. Patient was reevaluated today on 05/17/22, patient had to be transferred to the ICU last night mostly because she developed atrial fibrillation and RVR. Patient also developed some component of mild congestive heart failure. Had to be placed on diuretics, we had to place the patient on BiPAP last night, however she seems to be more comfortable today, she is down to 4 L nasal cannula, and last night she was on BiPAP //40%. Chest x-ray did show evidence of mild congestive heart failure. Patient was placed on Cardizem and it was already transitioned to oral Cardizem by cardiology this morning.WBC count today is 6.8 hemoglobin is 10.9 lites are normal bicarb is 46 BUN is 18 and creatinine 0.57. Chest x-ray showed cardiomegaly and mild interstitial edema. Along with COPD. The patient is seen today 05/18/2022 in follow-up in the intensive care unit. She is currently sitting up in a chair at the bedside. Awake and alert in no acute distress. She is maintaining O2 saturations in the 90s on 5 L/m per nasal cannula. She did utilize BiPAP last night 12/6 and 40% FiO2. No IV fluids. She remains in atrial fibrillation. White count 8.1. Hemoglobin 11.5. Glucose 170. She is continued on DuoNeb inhalations, Symbicort, IV Solu-Medrol. Remains on IV diuretics. Cardizem for heart rate control. Chest x-ray continued to show cardiomegaly with pulmonary venous congestion and tiny effusi ons. Slight improvement compared to yesterday. Progress note dated 05/19/2022. This is a 72-year-old female that we saw yesterday in the intensive care unit. Today, she is seen in room 357. Currently, she is on 4 L of oxygen. No IV fluids. She does use BiPAP intermittently with settings of 12/6 and 40%. Currently resting comfortably. Feeling better. White count 8.9, hemoglobin 12.2, hematocrit 40.7, and platelet count 357,000. Sodium 142, potassium 4, chlorides 84, and CO2 55. BUN and creatinine were 24 and 0.69. Progress note dated 05/20/2022. 72-year-old female that initially was seen in the intensive care unit. She is now seen today in room 357. The patient is currently on 4 L of oxygen. At nighttime, she uses BiPAP, with settings of 12/6 and 40%. She is not receiving any IV fluids. She appears reasonably stable. Labs today include a white count 7.2, hemoglobin 11.2, hematocrit 36.8, and a platelet count that was normal. Sodium 135, potassium 4.3, chlorides 84, CO2 48, BUN 32, creatinine 0.48. Anion gap is 3. Calcium is normal. Objective - Vital Signs Vital signs: Vital Signs Temp 98.2 F 05/20/22 08:00 Pulse 78 05/20/22 11:59 Resp 18 05/20/22 08:00 BP 125/79 05/20/22 08:00 Pulse Ox 91 L 05/20/22 08:00 FiO2 40 05/19/22 08:00 Intake & Output 05/19/22 05/20/22 05/20/22 18:59 06:59 18:59 Intake Total 80 540 118 Output Total 400 500 Balance -320 40 118 Intake: Oral 80 540 118 Output: Urine 400 500 Other: Voiding Method Bedside Commode # Voids 2 1 # Bowel Movements 1 - Exam No acute distress, oriented 3. Obese white female, currently on 4 L. No re spiratory distress. No conversational dyspnea. HEENT examination is grossly unremarkable. Neck supple. Full range of motion. No adenopathy thyromegaly or neck vein distention. Cardiovascular examination reveals regular rhythm rate. S1-S2 normal. No S3 or S4. No discernible murmur noted. Heart sounds are distant. Heart rate 78 bpm. Lungs reveal scattered expiratory wheezes and rhonchi. Breath sounds are equal bilaterally but diminished throughout. No crackles. Breath sounds equal. Saturations mid 90s. Abdomen soft bowel sounds are heard. No masses or tenderness. Extremities are intact. No cyanosis clubbing or edema. Skin is without rash or lesion. Neurologic examination is brief but nonfocal. - Labs CBC & Chem 7: 05/20/22 07:05 05/20/22 07:05 Labs: Abnormal Lab Results - Last 24 Hours (Table) 05/19/22 05/19/22 05/20/22 Range/Units 16:50 19:49 05:54 Hgb (11.4-16.0) gm/dL MCHC (31.0-37.0) g/dL Sodium (137-145) mmol/L Chloride (98-107) mmol/L Carbon Dioxide (22-30) mmol/L BUN (7-17) mg/dL Creatinine (0.52-1.04) mg/dL Glucose (74-99) mg/dL POC Glucose (mg/dL) 228 H 398 H 162 H (70-110) mg/dL 05/20/22 05/20/22 05/20/22 Range/Units 07:05 07:05 11:35 Hgb 11.2 L (11.4-16.0) gm/dL MCHC 30.4 L (31.0-37.0) g/dL Sodium 135 L (137-145) mmol/L Chloride 84 L (98-107) mmol/L Carbon Dioxide 48 H* (22-30) mmol/L BUN 32 H (7-17) mg/dL Creatinine 0.48 L (0.52-1.04) mg/dL Glucose 135 H (74-99) mg/dL POC Glucose (mg/dL) 180 H (70-110) mg/dL Microbiology - Last 24 Hours (Table) 05/17/22 09:20 Gram Stain - Final Sputum Sputum Culture - Final Assessment and Plan Assessment: Acute on chronic hypoxemic respiratory failure secondary to an exacerbation of COPD. History of chronic obstructive pulmonary disease, oxygen dependent, and severe. History of 50 years of chronic tobacco dependence, however quit in 2014. Atrial fibrillation/flutter. Acute exacerbation of diastolic congestive heart failure. Recent hospitalization in [place], [place]. Obesity. Plan: Plan dated 05/19/2022. The patient appears to be doing reasonably well. She feels better. She continues on Solu-Medrol, DuoNeb, but has declined Symbicort. We will continue to follow the patient make recommendations along the way. She clearly has severe chronic hypoxemic and hypercapnic respiratory failure. Prognosis is guarded. Saturations are perfectly adequate between 88 and 92%. Oxygen should be titrated carefully. Plan dated 05/20/2022. The patient continues on 4 L of oxygen. In addition, from the pulmonary standpoint, she is on doxycycline, 100 mg twice a day, Flonase nasal spray, and updrafts with albuterol sulfate and ipratropium bromide. She continues on Solu- Medrol, at 60 mg every 6 hours. We will continue to follow. Prognosis is guarded. She declined an endoscopy today by surgery. Time with Patient: Less than 30
--- NOTE | 2022-05-20 16:17 | P.PN ---
Subjective patient is 72-year-old lady with past medical history significant for chronic hypoxic respiratory failure, COPD, history of tobacco addiction who presented to the ER because of worsening shortness of breath. Patient was recently admitted in the hospital in [place] for COPD exacerbation and was discharged and was visiting her daughter here. Patient was using oxygen at home, normally 2 L at rest at 4 L on exertion but stated that yesterday she felt that her oxygen was not working for her. Patient was getting short of breath on exertion, also complaining of cough. Denied any chest pain. There was no complain of orthopnea or PND. Denies any swelling of feet. Patient was worked up in the ER, initial lab work showed patient to have a white count of 5.4, hemoglobin 11.2, platelet count of 278, sodium 142 potassium 5.3, bicarbonate 41, covid was negative, chest x-ray was negative for pneumonia. Patient was admitted to hospitalist service 05/18/2012 Patient breathing pattern is improving and currently she is on [address] oxygen via nasal cannula She has occult blood positive in his stool but d-dimer is negative. Sputum culture is pending Chest x-ray showed CHF Ejection fraction 55% She's on doxycycline, IV Solu-Medrol, IV Lasix 40 mg daily also as oral Cardizem 240 mg per pmp certified project manager in line Protonix and its and we'll check iron studies 05/19/2022 Patient was on BiPAP this morning, able to come the gait and interactive, she is fully awake, she is not in distress. Over she is slowly and gradually improving regarding her COPD while she is on doxycycline, IV Solu-Medrol and IV Lasix 40 mg daily. Also patient with diastolic CHF. She has chronic atrial fibrillation, not on anticoagulation. Her occult blood in the stool is positive however patient is not anemic, surgery team were consulted. 05/20/2022 Patient still have some wheezing and she is slightly tachypneic, this morning she could not tolerate the 3 L of oxygen via nasal cannula and we went up to 4 L again. Also discussed the case with pmp certified project manager Dr. Muñoz and he strongly recommended liquids if she got cleared. I discussed the case with surgery team with the plan to do colonoscopy. For anticoagulation however as per my discussion with the family as Dr. Whatley part of the family members, we going to hold on colonoscopy given her significant pulmonary disease and hypoxia and in view of normal hemoglobin and normal iron studies, this positive for occult blood in the stool could be a false positive RELATED TO GI BLEED THERE IS NO SIGNS OF GI BLEEDING CURRENTLY. also as per discussion with family will be going to start Eliquis 5 mg [dose confirmed with pharmacy] monitor hemoglobin. Risks and benefits are explained including but not limited to risk of bleeding Objective - Vital Signs Vital signs: Vital Signs Temp 98.2 F 05/20/22 08:00 Pulse 78 05/20/22 11:59 Resp 18 05/20/22 08:00 BP 125/79 05/20/22 08:00 Pulse Ox 91 L 05/20/22 08:00 FiO2 40 05/19/22 08:00 Intake & Output 05/19/22 05/20/22 05/20/22 18:59 06:59 18:59 Intake Total 80 540 118 Output Total 400 500 Balance -320 40 118 Intake: Oral 80 540 118 Output: Urine 400 500 Other: Voiding Method Bedside Commode # Voids 2 - Exam GENERAL: The patient is alert and oriented x3, not in any acute distress. Well developed, well nourished. HEENT: Pupils are round and equally reacting to light. EOMI. No scleral icterus. No conjunctival pallor. Normocephalic, atraumatic. No pharyngeal erythema. No thyromegaly. CARDIOVASCULAR: S1 and S2 present. No murmurs, rubs, or gallops. -PULMONARY: Chest is clear to auscultation, bilateral scattered wheezing. ABDOMEN: Soft, nontender, nondistended, normoactive bowel sounds. No palpable organomegaly. MUSCULOSKELETAL: No joint swelling or deformity. EXTREMITIES: No cyanosis, clubbing, or pedal edema. NEUROLOGICAL: Gross neurological examination did not reveal any focal deficits. SKIN: No rashes. no petechiae. - Labs CBC & Chem 7: 05/20/22 07:05 05/20/22 07:05 Labs: Abnormal Lab Results - Last 24 Hours (Table) 05/19/22 05/19/22 05/20/22 Range/Units 16:50 19:49 05:54 Hgb (11.4-16.0) gm/dL MCHC (31.0-37.0) g/dL Sodium (137-145) mmol/L Chloride (98-107) mmol/L Carbon Dioxide (22-30) mmol/L BUN (7-17) mg/dL Creatinine (0.52-1.04) mg/dL Glucose (74-99) mg/dL POC Glucose (mg/dL) 228 H 398 H 162 H (70-110) mg/dL 05/20/22 05/20/22 05/20/22 Range/Units 07:05 07:05 11:35 Hgb 11.2 L (11.4-16.0) gm/dL MCHC 30.4 L (31.0-37.0) g/dL Sodium 135 L (137-145) mmol/L Chloride 84 L (98-107) mmol/L Carbon Dioxide 48 H* (22-30) mmol/L BUN 32 H (7-17) mg/dL Creatinine 0.48 L (0.52-1.04) mg/dL Glucose 135 H (74-99) mg/dL POC Glucose (mg/dL) 180 H (70-110) mg/dL Microbiology - Last 24 Hours (Table) 05/17/22 09:20 Gram Stain - Final Sputum Sputum Culture - Final Assessment and Plan Assessment: Acute COPD exacerbation Acute diastolic CHF with ejection fraction 55% Acute on chronic hypoxemic respiratory failure. Chronic atrial fibrillation Elevated troponin Hyperkalemia History of tobacco addiction Plan: Continue with IV Solu-Medrol and doxycycline on Continue with Lasix per pmp certified project manager, she wished oral dose Pulmonary and cardiology team on the case Continue with Protonix Hold on colonoscopy per family request and secondary to advanced pulmonary disease Start Eliquis 5 mg and monitor hemoglobin Consult with surgery team is appreciated Labs and medication were reviewed.. Continue same treatment. Continue with symptomatic treatment. Resume home medication. Monitor lytes and vitals. DVT and GI prophylaxis. Further recommendations as per clinical course of the patient DVT prophylaxis: Subcutaneous heparin on hold because of positive occult blood in stool GI Prophylaxis: Ppi PT/OT: Pending Prognosis is guarded Discussed with family
[2022-05-20 16:32] LABS: Glucose,Whole Blood 140 mg/dL (70-110)
[2022-05-20] MEDS: HYDROcodone/APAP 5-325MG 1 EACH TAB PO PRN (18:13)
[2022-05-20 19:58] LABS: Glucose,Whole Blood 335 mg/dL (70-110)
[2022-05-20] MEDS: APIXABAN 5 MG TAB PO SCH (21:17)
[2022-05-20] MEDS: FLUTICASONE 50MCG/SPRAY NASAL 16GM EA NOSTRIL PRN (21:23)
[2022-05-21] MEDS: IPRATROPIUM-ALBUTEROL 3 ML NEB INHALATION PRN (03:36)
[2022-05-21 05:57] LABS: Glucose,Whole Blood 181 mg/dL (70-110)
[2022-05-21] MEDS: methylPREDNISolone SOD SUCCI 125 MG/2 ML VIAL IV SCH ×3 (06:49→17:24)
[2022-05-21] MEDS: INSULIN ASPART (NovoLOG) 100 UNIT/ML VIAL SQ SCH ×4 (06:49→21:13)
[2022-05-21 07:56] LABS: Basophils # (A) 0.1 k/uL (0-0.2); Basophils % (A) 1 %; Eosinophils % (A) 0 %; HCT 38.2 % (34.0-46.0); Hypochromasia Marked; Lymphocytes # (A) 0.2 k/uL (1.0-4.8); Lymphocytes % (A) 3 %; MCH 28.9 pg (25.0-35.0); MCHC 31.4 g/dL (31.0-37.0); MCV 92.2 fL (80.0-100.0); Mean Platelet Volume 9.3; Monocytes # (A) 0.3 k/uL (0-1.0); Monocytes % (A) 4 %; Neutrophils # (A) 6.8 k/uL (1.3-7.7); Neutrophils % (A) 89 %; Platelet Count 273 k/uL (150-450); RBC 4.14 m/uL (3.80-5.40); RDW 12.9 % (11.5-15.5); WBC 7.6 k/uL (3.8-10.6)
[2022-05-21 08:16] LABS: African American GFR (CKD) >90 (>60 ml/min/1.73 sqM); Blood Urea Nitrogen 46 mg/dL (7-17); Calcium 8.4 mg/dL (8.4-10.2); Chloride 79 mmol/L (98-107); Glucose 163 mg/dL (74-99); Non-African American GFR(CKD) 80 (>60 ml/min/1.73 sqM); Potassium 3.6 mmol/L (3.5-5.1); Sodium 137 mmol/L (137-145)
[2022-05-21 08:23] LABS: Anion Gap 4 mmol/L
[2022-05-21 08:27] LABS: Carbon Dioxide 54 mmol/L (22-30)
[2022-05-21] MEDS: IPRATROPIUM-ALBUTEROL 3 ML NEB INHALATION SCH ×4 (08:28→20:38)
[2022-05-21] MEDS: DOXYCYCLINE 100 MG CAP PO SCH (09:28)
[2022-05-21] MEDS: DILTIAZEM CD 240 MG CAP.ER.24H PO SCH (09:28)
[2022-05-21] MEDS: LOSARTAN 50 MG TAB PO SCH (09:28)
[2022-05-21] MEDS: FUROSEMIDE 40 MG TAB PO SCH (09:28)
[2022-05-21] MEDS: APIXABAN 5 MG TAB PO SCH ×2 (09:28→21:12)
[2022-05-21] MEDS: PANTOPRAZOLE 40 MG/10 ML VIAL IVP SCH (09:29)
[2022-05-21] MEDS: busPIRone HCl 5 MG TAB PO SCH ×2 (09:29→21:11)
[2022-05-21] MEDS: FLUTICASONE 50MCG/SPRAY NASAL 16GM EA NOSTRIL SCH (09:37)
[2022-05-21] MEDS: HYDROcodone/APAP 5-325MG 1 EACH TAB PO PRN (09:43)
[2022-05-21 11:43] LABS: Glucose,Whole Blood 165 mg/dL (70-110)
--- NOTE | 2022-05-21 12:11 | P.PN ---
Subjective patient is 72-year-old lady with past medical history significant for chronic hypoxic respiratory failure, COPD, history of tobacco addiction who presented to the ER because of worsening shortness of breath. Patient was recently admitted in the hospital in [place] for COPD exacerbation and was discharged and was visiting her daughter here. Patient was using oxygen at home, normally 2 L at rest at 4 L on exertion but stated that yesterday she felt that her oxygen was not working for her. Patient was getting short of breath on exertion, also complaining of cough. Denied any chest pain. There was no complain of orthopnea or PND. Denies any swelling of feet. Patient was worked up in the ER, initial lab work showed patient to have a white count of 5.4, hemoglobin 11.2, platelet count of 278, sodium 142 potassium 5.3, bicarbonate 41, covid was negative, chest x-ray was negative for pneumonia. Patient was admitted to hospitalist service 05/18/2012 Patient breathing pattern is improving and currently she is on [address] oxygen via nasal cannula She has occult blood positive in his stool but d-dimer is negative. Sputum culture is pending Chest x-ray showed CHF Ejection fraction 55% She's on doxycycline, IV Solu-Medrol, IV Lasix 40 mg daily also as oral Cardizem 240 mg per supervisor waterproofing in line Protonix and its and we'll check iron studies 05/19/2022 Patient was on BiPAP this morning, able to come the gait and interactive, she is fully awake, she is not in distress. Over she is slowly and gradually improving regarding her COPD while she is on doxycycline, IV Solu-Medrol and IV Lasix 40 mg daily. Also patient with diastolic CHF. She has chronic atrial fibrillation, not on anticoagulation. Her occult blood in the stool is positive however patient is not anemic, surgery team were consulted. 05/20/2022 Patient still have some wheezing and she is slightly tachypneic, this morning she could not tolerate the 3 L of oxygen via nasal cannula and we went up to 4 L again. Also discussed the case with supervisor waterproofing Dr. Muñoz and he strongly recommended liquids if she got cleared. I discussed the case with surgery team with the plan to do colonoscopy. For anticoagulation however as per my discussion with the family as Dr. Whatley part of the family members, we going to hold on colonoscopy given her significant pulmonary disease and hypoxia and in view of normal hemoglobin and normal iron studies, this positive for occult blood in the stool could be a false positive RELATED TO GI BLEED THERE IS NO SIGNS OF GI BLEEDING CURRENTLY. also as per discussion with family will be going to start Eliquis 5 mg [dose confirmed with pharmacy] monitor hemoglobin. Risks and benefits are explained including but not limited to risk of bleeding 05/21/2022 Patient is awake and alert, she still have some dyspnea and she still have limited air entry because of her COPD. She is At night and she is saturating mid 90s on 4 L oxygen by nasal cannula. She was started on Eliquis yesterday and her hemoglobin today still normal at 12 Today. She has positive occult blood in his stool but no active bleeding, her stool brown. I discussed with her family yesterday and they declined colonoscopy because of her bad pulmonary status and the prefer to start Eliquis for her A. fib which is recommended by supervisor waterproofing with close monitoring of her hemoglobin. Today I explained the risk of this medication as well as the benefits in details to the patient and daughter over the phone and both agreed to continue with Eliquis. Also patient kept on doxycycline, Solu-Medrol and oral Lasix as well as oral Cardizem. BiPAP machine at bedside and she was admitted mainly at night Objective - Vital Signs Vital signs: Vital Signs Temp 97.8 F 05/21/22 09:24 Pulse 106 H 05/21/22 09:24 Resp 18 05/21/22 09:24 BP 129/74 05/21/22 09:24 Pulse Ox 93 L 05/21/22 09:24 FiO2 40 05/21/22 04:30 Intake & Output 05/20/22 05/21/22 05/21/22 18:59 06:59 18:59 Intake Total 118 Balance 118 Intake: Oral 118 Other: # Voids 2 1 # Bowel Movements 1 - Exam GENERAL: The patient is alert and oriented x3, not in any acute distress. Well developed, well nourished. HEENT: Pupils are round and equally reacting to light. EOMI. No scleral icterus. No conjunctival pallor. Normocephalic, atraumatic. No pharyngeal erythema. No thyromegaly. CARDIOVASCULAR: S1 and S2 present. No murmurs, rubs, or gallops. -PULMONARY: Chest is clear to auscultation, bilateral scattered wheezing. ABDOMEN: Soft, nontender, nondistended, normoactive bowel sounds. No palpable organomegaly. MUSCULOSKELETAL: No joint swelling or deformity. EXTREMITIES: No cyanosis, clubbing, or pedal edema. NEUROLOGICAL: Gross neurological examination did not reveal any focal deficits. SKIN: No rashes. no petechiae. - Labs CBC & Chem 7: 05/21/22 07:09 05/21/22 07:09 Labs: Abnormal Lab Results - Last 24 Hours (Table) 05/20/22 05/20/22 05/20/22 Range/Units 11:35 16:31 19:56 Lymphocytes # (1.0-4.8) k/uL Chloride (98-107) mmol/L Carbon Dioxide (22-30) mmol/L BUN (7-17) mg/dL Glucose (74-99) mg/dL POC Glucose (mg/dL) 180 H 140 H 335 H (70-110) mg/dL 05/21/22 05/21/22 05/21/22 Range/Units 05:55 07:09 07:09 Lymphocytes # 0.2 L (1.0-4.8) k/uL Chloride 79 L (98-107) mmol/L Carbon Dioxide 54 H* (22-30) mmol/L BUN 46 H (7-17) mg/dL Glucose 163 H (74-99) mg/dL POC Glucose (mg/dL) 181 H (70-110) mg/dL Assessment and Plan Assessment: Acute COPD exacerbation Acute diastolic CHF with ejection fraction 55% Acute on chronic hypoxemic respiratory failure. Chronic atrial fibrillation Elevated troponin Hyperkalemia History of tobacco addiction Plan: Continue with IV Solu-Medrol and doxycycline on Continue with Lasix per supervisor waterproofing, she wished oral dose Pulmonary and cardiology team on the case Continue with Protonix Hold on colonoscopy per family request and secondary to advanced pulmonary disease and per patient and family request Continue with Eliquis 5 mg and monitor hemoglobin Consult with surgery team is appreciated Labs and medication were reviewed.. Continue same treatment. Continue with symptomatic treatment. Resume home medication. Monitor lytes and vitals. DVT and GI prophylaxis. Further recommendations as per clinical course of the patient DVT prophylaxis: Subcutaneous heparin on hold because of positive occult blood in stool GI Prophylaxis: Ppi PT/OT: Pending Prognosis is guarded Discussed with family
--- NOTE | 2022-05-21 12:22 | P.PN ---
Subjective Progress Note Date: 05/21/22 Principal diagnosis: Shortness of breath. This is a pleasant 72-year-old female patient with a history of chronic tobacco dependence of 50 years however quit in 2015, oxygen dependent. 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 She believes her lung function is at 43%. She had recently been hospitalized in [place] and had just been recently discharged. She was here in town with her daughter and she developed increasing shortness of breath cough congestion wheezing and presented here to the emergency room early this morning for the same. Chest x-ray reveals card iomegaly. Mild pulmonary fibrosis. No acute heart failure. white count 5.4. Hemoglobin 11.2. Platelets 278. D-dimer 0.48. Sodium 142. Potassium 5.3. Bicarb 41. BUN 18. Creatinine 0.53. ProBNP 3390. Troponin 0.05. Newell virus by PCR not detected. She is initiated and DuoNeb inhalations, Solu-Medrol, Symbicort and empiric antibiotics in the form of doxycycline. Normal saline at 130 ML's per hour.she is seen today in contact flotation in the emergency department. Currently sitting up in a stretcher. Awake and alert in no acute distress. Breathing is somewhat improved. Patient was reevaluated today on 05/17/22, patient had to be transferred to the ICU last night mostly because she developed atrial fibrillation and RVR. Patient also developed some component of mild congestive heart failure. Had to be placed on diuretics, we had to place the patient on BiPAP last night, however she seems to be more comfortable today, she is down to 4 L nasal cannula, and last night she was on BiPAP //40%. Chest x-ray did show evidence of mild congestive heart failure. Patient was placed on Cardizem and it was already transitioned to oral Cardizem by cardiology this morning.WBC count today is 6.8 hemoglobin is 10.9 lites are normal bicarb is 46 BUN is 18 and creatinine 0.57. Chest x-ray showed cardiomegaly and mild interstitial edema. Along with COPD. The patient is seen today 05/18/2022 in follow-up in the intensive care unit. She is currently sitting up in a chair at the bedside. Awake and alert in no acute distress. She is maintaining O2 saturations in the 90s on 5 L/m per nasal cannula. She did utilize BiPAP last night 12/6 and 40% FiO2. No IV fluids. She remains in atrial fibrillation. White count 8.1. Hemoglobin 11.5. Glucose 170. She is continued on DuoNeb inhalations, Symbicort, IV Solu-Medrol. Remains on IV diuretics. Cardizem for heart rate control. Chest x-ray continued to show cardiomegaly with pulmonary venous congestion and tiny effusi ons. Slight improvement compared to yesterday. Progress note dated 05/19/2022. This is a 72-year-old female that we saw yesterday in the intensive care unit. Today, she is seen in room 357. Currently, she is on 4 L of oxygen. No IV fluids. She does use BiPAP intermittently with settings of 12/6 and 40%. Currently resting comfortably. Feeling better. White count 8.9, hemoglobin 12.2, hematocrit 40.7, and platelet count 357,000. Sodium 142, potassium 4, chlorides 84, and CO2 55. BUN and creatinine were 24 and 0.69. Progress note dated 05/20/2022. 72-year-old female that initially was seen in the intensive care unit. She is now seen today in room 357. The patient is currently on 4 L of oxygen. At nighttime, she uses BiPAP, with settings of 12/6 and 40%. She is not receiving any IV fluids. She appears reasonably stable. Labs today include a white count 7.2, hemoglobin 11.2, hematocrit 36.8, and a platelet count that was normal. Sodium 135, potassium 4.3, chlorides 84, CO2 48, BUN 32, creatinine 0.48. Anion gap is 3. Calcium is normal. Progress note dated 05/21/2022. 72-year-old female again seen in room 357. The patient's currently on 4 L of oxygen. No IV fluids. We are going to DC the Vibramycin. We do at some Tessalon Perles 200 mg 3 times a day for her cough. The patient asked about getting a sleep study. I told her it was an outpatient procedure, and she could have a sleep study done at home, or at a sleep center. Family members reside in [place]. Current laboratory data includes a white count of 7.6, hemoglobin 12, hematocrit 38.2, and a platelet count of 273,000. Sodium 137, potassium 3.6, chloride 79, CO2 54, BUN 46, and creatinine 0.76. Objective - Vital Signs Vital signs: Vital Signs Temp 97.8 F 05/21/22 09:24 Pulse 106 H 05/21/22 09:24 Resp 18 05/21/22 09:24 BP 129/74 05/21/22 09:24 Pulse Ox 93 L 05/21/22 09:24 FiO2 40 05/21/22 04:30 Intake & Output 05/20/22 05/21/22 05/21/22 18:59 06:59 18:59 Intake Total 118 Balance 118 Intake: Oral 118 Other: Voiding Method Toilet # Voids 2 1 0 # Bowel Movements 1 - Exam No acute distress, oriented 3. Obese white female, currently on 4 L. No respiratory distress. No conversational dyspnea. HEENT examination is grossly unremarkable. Neck supple. Full range of motion. No adenopathy thyromegaly or neck vein distention. Cardiovascular examination reveals regular rhythm rate. S1-S2 normal. No S3 or S4. No discernible murmur noted. Heart sounds are distant. Heart rate 92 bpm. Lungs reveal scattered expiratory wheezes and rhonchi. Breath sounds are equal bilaterally but diminished throughout. No crackles. Breath sounds equal. Saturation is 93%. Abdomen soft bowel sounds are heard. No masses or tenderness. Extremities are intact. No cyanosis clubbing or edema. Skin is without rash or lesion. Neurologic examination is brief but nonfocal. - Labs CBC & Chem 7: 05/21/22 07:09 05/21/22 07:09 Labs: Abnormal Lab Results - Last 24 Hours (Table) 05/20/22 05/20/22 05/21/22 Range/Units 16:31 19:56 05:55 Lymphocytes # (1.0-4.8) k/uL Chloride (98-107) mmol/L Carbon Dioxide (22-30) mmol/L BUN (7-17) mg/dL Glucose (74-99) mg/dL POC Glucose (mg/dL) 140 H 335 H 181 H (70-110) mg/dL 05/21/22 05/21/22 05/21/22 Range/Units 07:09 07:09 11:42 Lymphocytes # 0.2 L (1.0-4.8) k/uL Chloride 79 L (98-107) mmol/L Carbon Dioxide 54 H* (22-30) mmol/L BUN 46 H (7-17) mg/dL Glucose 163 H (74-99) mg/dL POC Glucose (mg/dL) 165 H (70-110) mg/dL Assessment and Plan Assessment: Acute on chronic hypoxemic respiratory failure secondary to an exacerbation of COPD. Chronic hypercapnic respiratory failure. History of chronic obstructive pulmonary disease, oxygen dependent, and severe. History of 50 years of chronic tobacco dependence, however quit in 2014. Atrial fibrillation/flutter. Acute exacerbation of diastolic congestive heart failure. Recent hospitalization in [place], [place]. Obesity. Plan: Plan dated 05/19/2022. The patient appears to be doing reasonably well. She feels better. She continues on Solu-Medrol, DuoNeb, but has declined Symbicort. We will continue to follow the patient make recommendations along the way. She clearly has severe chronic hypoxemic and hypercapnic respiratory failure. Prognosis is guarded. Saturations are perfectly adequate between 88 and 92%. Oxygen should be titrated carefully. Plan dated 05/20/2022. The patient continues on 4 L of oxygen. In addition, from the pulmonary standpoint, she is on doxycycline, 100 mg twice a day, Flonase nasal spray, and updrafts with albuterol sulfate and ipratropium bromide. She continues on Solu- Medrol, at 60 mg every 6 hours. We will continue to follow. Prognosis is guarded. She declined an endoscopy today by surgery. Plan dated 05/21/2022. Today we discontinue the patient's Vibramycin. In addition, she complained of cough, so we added some Tessalon Perles, 200 mg 3 times a day. The rest of her medications are reviewed and are appropriate. Labs, x-rays, medications are reviewed. She continues on appropriate medications, including duo nebs, and Solu-Medrol. We will continue to follow make recommendations along the way. Prognosis is guarded. Time with Patient: Less than 30
[2022-05-21] MEDS: ALPRAZolam 0.25 MG TAB PO PRN (12:32)
[2022-05-21 14:11] VITALS: BMI 29.5
--- NOTE | 2022-05-21 15:26 | P.PN ---
Subjective Progress Note Date: 05/21/22 CHIEF COMPLAINT: Fecal occult blood positive HISTORY OF PRESENT ILLNESS: Patient hospitalized with COPD exacerbation and CHF exacerbation. She also had atrial flutter with RVR and had been on IV heparin. Patient had stool for occult blood positive while on IV heparin. Hemoglobin has remained stable. Patient denies any blood in her stools. She denies any abdominal pain. Initially we planned to proceed with endoscopies. However, family would like to hold off on endoscopies at this time. Patient's Eliquis has been restarted. Afebrile. Hemoglobin stable 12 Patient seen and examined with Dr. segovia PHYSICAL EXAM: VITAL SIGNS: Reviewed. GENERAL: Well-developed in no acute distress. HEENT: No sclera icterus. Extraocular movements grossly intact. Moist buccal mucosa. Head is atraumatic, normocephalic. ABDOMEN: Soft. Nondistended. Nontender. NEUROLOGIC: Alert and oriented. Cranial nerves II through XII grossly intact. ASSESSMENT: 1. Possible GI Bleed. Fecal occult blood positive while on IV heparin. Stable hemoglobin 2. Prior history of GI bleed with EGD, colonoscopy and capsule endoscopy completed in 2019 per patient findings were unremarkable 3. History of iron deficiency anemia PLAN: -Would recommend endoscopies when patient is medically stable. Endoscopies can be done outpatient. At this time patient's family is requesting to hold off on endoscopies -Medical service has resumed oral anticoagulation. Continue to monitor for any signs or symptoms of bleeding -Continue PPI Physician Clinical Exercise Specialist note has been reviewed by physician. Signing provider agrees with the documented findings, assessment, and plan of care. Objective - Vital Signs Vital signs: Vital Signs Temp 98.4 F 05/21/22 12:28 Pulse 81 05/21/22 12:40 Resp 18 05/21/22 09:24 BP 141/79 05/21/22 12:28 Pulse Ox 94 L 05/21/22 12:28 FiO2 40 05/21/22 04:30 Intake & Output 05/20/22 05/21/22 05/21/22 18:59 06:59 18:59 Intake Total 118 Balance 118 Weight 62 kg Intake: Oral 118 Other: Voiding Method Toilet # Voids 2 1 2 # Bowel Movements 1 - Labs CBC & Chem 7: 05/21/22 07:09 05/21/22 07:09 Labs: Abnormal Lab Results - Last 24 Hours (Table) 05/20/22 05/20/22 05/21/22 Range/Units 16:31 19:56 05:55 Lymphocytes # (1.0-4.8) k/uL Chloride (98-107) mmol/L Carbon Dioxide (22-30) mmol/L BUN (7-17) mg/dL Glucose (74-99) mg/dL POC Glucose (mg/dL) 140 H 335 H 181 H (70-110) mg/dL 05/21/22 05/21/22 05/21/22 Range/Units 07:09 07:09 11:42 Lymphocytes # 0.2 L (1.0-4.8) k/uL Chloride 79 L (98-107) mmol/L Carbon Dioxide 54 H* (22-30) mmol/L BUN 46 H (7-17) mg/dL Glucose 163 H (74-99) mg/dL POC Glucose (mg/dL) 165 H (70-110) mg/dL
[2022-05-21] MEDS: BENZONATATE 100 MG CAP PO SCH ×2 (15:39→21:12)
[2022-05-21 16:19] LABS: Glucose,Whole Blood 236 mg/dL (70-110)
[2022-05-21 20:21] LABS: Glucose,Whole Blood 238 mg/dL (70-110)
[2022-05-22] MEDS: ALPRAZolam 0.25 MG TAB PO PRN (00:24)
[2022-05-22] MEDS: methylPREDNISolone SOD SUCCI 125 MG/2 ML VIAL IV SCH ×5 (00:24→23:14)
[2022-05-22] MEDS: IPRATROPIUM-ALBUTEROL 3 ML NEB INHALATION PRN ×2 (00:25→04:03)
[2022-05-22 06:29] LABS: Glucose,Whole Blood 159 mg/dL (70-110)
[2022-05-22] MEDS: INSULIN ASPART (NovoLOG) 100 UNIT/ML VIAL SQ SCH ×4 (06:34→20:40)
[2022-05-22] MEDS: IPRATROPIUM-ALBUTEROL 3 ML NEB INHALATION SCH ×4 (08:53→20:37)
[2022-05-22 09:09] LABS: Basophils % (A) 0 %; Eosinophils % (A) 0 %; HCT 39.1 % (34.0-46.0); HGB 12.2 gm/dL (11.4-16.0); Hypochromasia Moderate; Lymphocytes # (A) 0.3 k/uL (1.0-4.8); Lymphocytes % (A) 3 %; MCH 28.7 pg (25.0-35.0); MCHC 31.2 g/dL (31.0-37.0); MCV 92.1 fL (80.0-100.0); Mean Platelet Volume 9.3; Monocytes # (A) 0.4 k/uL (0-1.0); Monocytes % (A) 3 %; Neutrophils # (A) 9.7 k/uL (1.3-7.7); Neutrophils % (A) 92 %; Platelet Count 303 k/uL (150-450); RBC 4.25 m/uL (3.80-5.40); RDW 12.9 % (11.5-15.5); WBC 10.6 k/uL (3.8-10.6)
[2022-05-22] MEDS: LOSARTAN 50 MG TAB PO SCH (09:17)
[2022-05-22] MEDS: FLUTICASONE 50MCG/SPRAY NASAL 16GM EA NOSTRIL SCH (09:17)
[2022-05-22] MEDS: PANTOPRAZOLE 40 MG/10 ML VIAL IVP SCH (09:18)
[2022-05-22] MEDS: DILTIAZEM CD 240 MG CAP.ER.24H PO SCH (09:18)
[2022-05-22] MEDS: BENZONATATE 100 MG CAP PO SCH ×3 (09:18→23:15)
[2022-05-22] MEDS: FUROSEMIDE 40 MG TAB PO SCH (09:18)
[2022-05-22] MEDS: busPIRone HCl 5 MG TAB PO SCH ×2 (09:18→20:40)
[2022-05-22] MEDS: APIXABAN 5 MG TAB PO SCH ×2 (09:18→20:40)
[2022-05-22 09:27] LABS: Calcium 8.4 mg/dL (8.4-10.2); Potassium 3.7 mmol/L (3.5-5.1)
[2022-05-22 12:14] LABS: Glucose,Whole Blood 173 mg/dL (70-110)
--- NOTE | 2022-05-22 14:25 | P.PN ---
Subjective The patient is a 72-year-old female patient with a past medical history significant for COPD, hypertension, asthma, former tobacco use. 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 She presented to the ER with chronic hypoxic respiratory failure secondary to COPD who was admitted to the hospital with increasing shortness of breath and she was diagnosed with COPD exacerbation. We consulted to see the patient because off cardiac arrhythmia mainly atrial flutter with RVR and mildly elevated troponin. Beside that she did have a component of heart failure with evidence of right more than left heart failure likely secondary to cor pulmonale. She was initially in the ICU, now transferred to . 05/22/2022 The patient was seen and evaluated this morning. Cardiology re-consulted for chest pain overnight. She states she had right sided chest pain through to her back. Non-radiating, non-exertional. She states it was after she ate something and it improved after belching. Her breathing has improved. Denies any shortness of breath this morning. Edema has resolved. She appears to be back in sinus rhythm HR 60s and episodes of atrial tachycardia. She is on 240mg of Cardizem CD. She is on PO diuretics For some reason she is not on anticoagulation mainly because of possible GI bleeding and that is currently in investigation. She underwent an echo which revealed normal left ventricular systolic function 55% with no significant valvular abnormalities GENERAL: Well-appearing, well-nourished and in no acute distress. NECK: Supple without JVD LUNGS: Breath sounds crackles to auscultation bilateral bases. Respiration equal and unlabored. No wheezes, rales or rhonchi. HEART: Irregular rate and rhythm without murmurs, rubs or gallops. S1 and S2 heard. EXTREMITIES: Normal range of motion, no edema. No clubbing or cyanosis. Peripheral pulses intact. ASSESSMENT Acute on chronic heart failure with preserved ejection fraction Chest pain, non-cardiac Atrial flutter with RVR, new onset, not on anticoagulation for possible GI bleed Acute COPD exacerbation Acute on chronic hypoxic respiratory failure Elevated troponin, likely type II mechanism secondary to hypoxia Hypertension Anemia Positive stool occult blood, being investigated by primary PLAN No further changes from a cardiology perspective Continue cardizem and losartan Recommend to start anticoagulation, but on hold secondary to investigation for GI bleed with positive stool occult blood. Surgery has evaluated the patient. Plan for possible EGD/Colonoscopy as outpatient. Start anticoagulation when cleared by surgery We will follow the patient as needed. Follow up outpatient with Dr. Clark. Nurse Practitioner note has been reviewed, I agree with a documented findings and plan of care. Patient was seen and examined. Objective - Vital Signs Vital signs: Vital Signs Temp 97.8 F 05/22/22 09:40 Pulse 72 05/22/22 12:28 Resp 20 05/22/22 12:00 BP 116/61 05/22/22 12:00 Pulse Ox 99 05/22/22 12:00 FiO2 40 05/22/22 00:32 Intake & Output 05/21/22 05/22/22 05/22/22 18:59 06:59 18:59 Weight 62 kg Other: Voiding Method Toilet Toilet # Voids 2 1 1 # Bowel Movements 0 - Labs CBC & Chem 7: 05/22/22 08:32 05/22/22 08:32 Labs: Abnormal Lab Results - Last 24 Hours (Table) 05/21/22 05/21/22 05/22/22 Range/Units 16:17 20:19 06:28 Neutrophils # (1.3-7.7) k/uL Lymphocytes # (1.0-4.8) k/uL Chloride (98-107) mmol/L Carbon Dioxide (22-30) mmol/L BUN (7-17) mg/dL Glucose (74-99) mg/dL POC Glucose (mg/dL) 236 H 238 H 159 H (70-110) mg/dL 05/22/22 05/22/22 05/22/22 Range/Units 08:32 08:32 12:12 Neutrophils # 9.7 H (1.3-7.7) k/uL Lymphocytes # 0.3 L (1.0-4.8) k/uL Chloride 79 L (98-107) mmol/L Carbon Dioxide 55 H* (22-30) mmol/L BUN 53 H (7-17) mg/dL Glucose 136 H (74-99) mg/dL POC Glucose (mg/dL) 173 H (70-110) mg/dL
--- NOTE | 2022-05-22 14:29 | P.PN ---
Subjective Progress Note Date: 05/22/22 Principal diagnosis: Shortness of breath. This is a pleasant 72-year-old female patient with a history of chronic tobacco dependence of 50 years however quit in 2015, oxygen dependent. 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 She believes her lung function is at 43%. She had recently been hospitalized in [place] and had just been recently discharged. She was here in town with her daughter and she developed increasing shortness of breath cough congestion wheezing and presented here to the emergency room early this morning for the same. Chest x-ray reveals card iomegaly. Mild pulmonary fibrosis. No acute heart failure. white count 5.4. Hemoglobin 11.2. Platelets 278. D-dimer 0.48. Sodium 142. Potassium 5.3. Bicarb 41. BUN 18. Creatinine 0.53. ProBNP 3390. Troponin 0.05. Newell virus by PCR not detected. She is initiated and DuoNeb inhalations, Solu-Medrol, Symbicort and empiric antibiotics in the form of doxycycline. Normal saline at 130 ML's per hour.she is seen today in contact flotation in the emergency department. Currently sitting up in a stretcher. Awake and alert in no acute distress. Breathing is somewhat improved. Patient was reevaluated today on 05/17/22, patient had to be transferred to the ICU last night mostly because she developed atrial fibrillation and RVR. Patient also developed some component of mild congestive heart failure. Had to be placed on diuretics, we had to place the patient on BiPAP last night, however she seems to be more comfortable today, she is down to 4 L nasal cannula, and last night she was on BiPAP 05/18/40%. Chest x-ray did show evidence of mild congestive heart failure. Patient was placed on Cardizem and it was already transitioned to oral Cardizem by cardiology this morning.WBC count today is 6.8 hemoglobin is 10.9 lites are normal bicarb is 46 BUN is 18 and creatinine 0.57. Chest x-ray showed cardiomegaly and mild interstitial edema. Along with COPD. The patient is seen today 05/18/2022 in follow-up in the intensive care unit. She is currently sitting up in a chair at the bedside. Awake and alert in no acute distress. She is maintaining O2 saturations in the 90s on 5 L/m per nasal cannula. She did utilize BiPAP last night 12/6 and 40% FiO2. No IV fluids. She remains in atrial fibrillation. White count 8.1. Hemoglobin 11.5. Glucose 170. She is continued on DuoNeb inhalations, Symbicort, IV Solu-Medrol. Remains on IV diuretics. Cardizem for heart rate control. Chest x-ray continued to show cardiomegaly with pulmonary venous congestion and tiny effusi ons. Slight improvement compared to yesterday. Progress note dated 05/19/2022. This is a 72-year-old female that we saw yesterday in the intensive care unit. Today, she is seen in room 357. Currently, she is on 4 L of oxygen. No IV fluids. She does use BiPAP intermittently with settings of 12/6 and 40%. Currently resting comfortably. Feeling better. White count 8.9, hemoglobin 12.2, hematocrit 40.7, and platelet count 357,000. Sodium 142, potassium 4, chlorides 84, and CO2 55. BUN and creatinine were 24 and 0.69. Progress note dated 05/20/2022. 72-year-old female that initially was seen in the intensive care unit. She is now seen today in room 357. The patient is currently on 4 L of oxygen. At nighttime, she uses BiPAP, with settings of 12/6 and 40%. She is not receiving any IV fluids. She appears reasonably stable. Labs today include a white count 7.2, hemoglobin 11.2, hematocrit 36.8, and a platelet count that was normal. Sodium 135, potassium 4.3, chlorides 84, CO2 48, BUN 32, creatinine 0.48. Anion gap is 3. Calcium is normal. Progress note dated 05/21/2022. 72-year-old female again seen in room 357. The patient's currently on 4 L of oxygen. No IV fluids. We are going to DC the Vibramycin. We do at some Tessalon Perles 200 mg 3 times a day for her cough. The patient asked about getting a sleep study. I told her it was an outpatient procedure, and she could have a sleep study done at home, or at a sleep center. Family members reside in [place]. Current laboratory data includes a white count of 7.6, hemoglobin 12, hematocrit 38.2, and a platelet count of 273,000. Sodium 137, potassium 3.6, chloride 79, CO2 54, BUN 46, and creatinine 0.76. Progress note dated 05/22/2022. 9-year-old female, again seen in room 357. Currently, she is on oxygen at 5 L. No IV fluids. She's feeling about the same. Very short of breath with any activity. Antibiotics were discontinued a couple days ago. The patient's hoping to get well enough to travel to [place], which is where her family is. Labs today include a white count of 10.6, hemoglobin 12.2, hematocrit 39.1, and platelet count 303,000. Sodium 138, potassium 3.7, chloride 79, CO2 55, BUN 53, and creatinine 0.97. Objective - Vital Signs Vital signs: Vital Signs Temp 97.8 F 05/22/22 09:40 Pulse 72 05/22/22 12:28 Resp 20 05/22/22 12:00 BP 116/61 05/22/22 12:00 Pulse Ox 99 05/22/22 12:00 FiO2 40 05/22/22 00:32 Intake & Output 05/21/22 05/22/22 05/22/22 18:59 06:59 18:59 Weight 62 kg Other: Voiding Method Toilet Toilet # Voids 2 1 1 # Bowel Movements 0 - Exam No acute distress, oriented 3. Obese white female, currently on 5 L. No respiratory distress. No conversational dyspnea. Saturations are 92%. HEENT examination is grossly unremarkable. Neck supple. Full range of motion. No adenopathy thyromegaly or neck vein distention. Cardiovascular examination reveals regular rhythm rate. S1-S2 normal. No S3 or S4. No discernible murmur noted. Heart sounds are distant. Heart rate 72 bpm. Lungs reveal scattered expiratory wheezes and rhonchi. Breath sounds are equal bilaterally but diminished throughout. No crackles. Breath sounds equal. Saturation is 92 %. Abdomen soft bowel sounds are heard. No masses or tenderness. Extremities are intact. No cyanosis clubbing or edema. Skin is without rash or lesion. Neurologic examination is brief but nonfocal. - Labs CBC & Chem 7: 05/22/22 08:32 05/22/22 08:32 Labs: Abnormal Lab Results - Last 24 Hours (Table) 05/21/22 05/21/22 05/22/22 Range/Units 16:17 20:19 06:28 Neutrophils # (1.3-7.7) k/uL Lymphocytes # (1.0-4.8) k/uL Chloride (98-107) mmol/L Carbon Dioxide (22-30) mmol/L BUN (7-17) mg/dL Glucose (74-99) mg/dL POC Glucose (mg/dL) 236 H 238 H 159 H (70-110) mg/dL 05/22/22 05/22/22 05/22/22 Range/Units 08:32 08:32 12:12 Neutrophils # 9.7 H (1.3-7.7) k/uL Lymphocytes # 0.3 L (1.0-4.8) k/uL Chloride 79 L (98-107) mmol/L Carbon Dioxide 55 H* (22-30) mmol/L BUN 53 H (7-17) mg/dL Glucose 136 H (74-99) mg/dL POC Glucose (mg/dL) 173 H (70-110) mg/dL Assessment and Plan Assessment: Acute on chronic hypoxemic respiratory failure secondary to an exacerbation of C OPD. Chronic hypercapnic respiratory failure. History of chronic obstructive pulmonary disease, oxygen dependent, and severe. History of 50 years of chronic tobacco dependence, however quit in 2014. Atrial fibrillation/flutter. Acute exacerbation of diastolic congestive heart failure. Recent hospitalization in [place], [place]. Obesity. Plan: Plan dated 05/19/2022. The patient appears to be doing reasonably well. She feels better. She continues on Solu-Medrol, DuoNeb, but has declined Symbicort. We will continue to follow the patient make recommendations along the way. She clearly has severe chronic hypoxemic and hypercapnic respiratory failure. Prognosis is gua rded. Saturations are perfectly adequate between 88 and 92%. Oxygen should be titrated carefully. Plan dated 05/20/2022. The patient continues on 4 L of oxygen. In addition, from the pulmonary [facility], she is on doxycycline, 100 mg twice a day, Flonase nasal spray, and updrafts with albuterol sulfate and ipratropium bromide. She continues on Solu- Medrol, at 60 mg every 6 hours. We will continue to follow. Prognosis is guarded. She declined an endoscopy today by surgery. Plan dated 05/21/2022. Today we discontinue the patient's Vibramycin. In addition, she complained of cough, so we added some Tessalon Perles, 200 mg 3 times a day. The rest of her medications are reviewed and are appropriate. Labs, x-rays, medications are reviewed. She continues on appropriate medications, including duo nebs, and Solu-Medrol. We will continue to follow make recommendations along the way. Prognosis is guarded. Plan dated 05/22/2022. The patient is seen again in room 357. She's currently on 5 L. From the pulmonary standpoint, she is getting Tessalon, updrafts with albuterol sulfate and ipratropium bromide, and Solu-Medrol. The patient refused Symbicort. We will continue to follow make recommendations along the way. This may be the best she gets. Overall prognosis remains very guarded. The patient does suffer from chronic hypoxemic and hypercapnic respiratory failure. Time with Patient: Less than 30
--- NOTE | 2022-05-22 15:23 | P.PN ---
Subjective Progress Note Date: 05/22/22 CHIEF COMPLAINT: Fecal occult blood positive HISTORY OF PRESENT ILLNESS: Patient hospitalized with COPD exacerbation and CHF exacerbation. She also had atrial flutter with RVR and had been on IV heparin. Patient had stool for occult blood positive while on IV heparin. Hemoglobin has remained stable. Patient denies any blood in her stools. She denies any abdominal pain. Initially we planned to proceed with endoscopies. However, family would like to hold off on endoscopies at this time. Patient's Eliquis has been restarted. Afebrile. Hemoglobin stable 12 Patient seen and examined with Dr. segovia PHYSICAL EXAM: VITAL SIGNS: Reviewed. GENERAL: Well-developed in no acute distress. HEENT: No sclera icterus. Extraocular movements grossly intact. Moist buccal mucosa. Head is atraumatic, normocephalic. ABDOMEN: Soft. Nondistended. Nontender. NEUROLOGIC: Alert and oriented. Cranial nerves II through XII grossly intact. ASSESSMENT: 1. Possible GI Bleed. Fecal occult blood positive while on IV heparin. Stable hemoglobin. 2. Prior history of GI bleed with EGD, colonoscopy and capsule endoscopy completed in 2019 per patient findings were unremarkable 3. History of iron deficiency anemia PLAN: -Would recommend endoscopies when patient is medically stable. Endoscopies can be done outpatient. At this time patient's family is requesting to hold off on endoscopies -Medical service has resumed oral anticoagulation. Continue to monitor for any signs or symptoms of bleeding -Continue PPI Physician Keyseater Operator note has been reviewed by physician. Signing provider agrees with the documented findings, assessment, and plan of care. Objective - Vital Signs Vital signs: Vital Signs Temp 97.8 F 05/22/22 09:40 Pulse 77 05/22/22 14:00 Resp 20 05/22/22 14:00 BP 116/61 05/22/22 12:00 Pulse Ox 99 05/22/22 12:00 FiO2 40 05/22/22 00:32 Intake & Output 05/21/22 05/22/22 05/22/22 18:59 06:59 18:59 Weight 62 kg Other: Voiding Method Toilet Toilet # Voids 2 1 1 # Bowel Movements 0 - Labs CBC & Chem 7: 05/22/22 08:32 05/22/22 08:32 Labs: Abnormal Lab Results - Last 24 Hours (Table) 05/21/22 05/21/22 05/22/22 Range/Units 16:17 20:19 06:28 Neutrophils # (1.3-7.7) k/uL Lymphocytes # (1.0-4.8) k/uL Chloride (98-107) mmol/L Carbon Dioxide (22-30) mmol/L BUN (7-17) mg/dL Glucose (74-99) mg/dL POC Glucose (mg/dL) 236 H 238 H 159 H (70-110) mg/dL 05/22/22 05/22/22 05/22/22 Range/Units 08:32 08:32 12:12 Neutrophils # 9.7 H (1.3-7.7) k/uL Lymphocytes # 0.3 L (1.0-4.8) k/uL Chloride 79 L (98-107) mmol/L Carbon Dioxide 55 H* (22-30) mmol/L BUN 53 H (7-17) mg/dL Glucose 136 H (74-99) mg/dL POC Glucose (mg/dL) 173 H (70-110) mg/dL
[2022-05-22 16:59] LABS: Glucose,Whole Blood 214 mg/dL (70-110)
--- NOTE | 2022-05-22 18:32 | P.PN ---
Subjective Progress Note Date: 05/22/22 72-year-old lady with past medical history significant for chronic hypoxic respiratory failure, COPD, history of tobacco addiction who presented to the ER because of worsening shortness of breath. Patient was recently admitted in the hospital in [place] for COPD exacerbation and was discharged and was visiting her daughter here. Patient was using oxygen at home, normally 2 L at rest at 4 L on exertion but stated that yesterday she felt that her oxygen was not working for her. Patient was getting short of breath on exertion, also complaining of cough. Denied any chest pain. There was no complain of orthopnea or PND. Denies any swelling of feet. Patient was worked up in the ER, initial lab work showed patient to have a white count of 5.4, hemoglobin 11.2, platelet count of 278, sodium 142 potassium 5.3, bicarbonate 41, covid was negative, chest x-ray was negative for pneumonia. Patient was admitted to hospitalist service 05/18/2012 Patient breathing pattern is improving and currently she is on [address] oxygen via nasal cannula She has occult blood positive in his stool but d-dimer is negative. Sputum culture is pending Chest x-ray showed CHF Ejection fraction 55% She's on doxycycline, IV Solu-Medrol, IV Lasix 40 mg daily also as oral Cardizem 240 mg per district plant engineer in line Protonix and its and we'll check iron studies Objective - Vital Signs Vital signs: Vital Signs Temp 97.8 F 05/22/22 09:40 Pulse 70 05/22/22 12:17 Resp 20 05/22/22 09:40 BP 134/55 05/22/22 09:40 Pulse Ox 92 L 05/22/22 09:40 FiO2 40 05/22/22 00:32 Intake & Output 05/21/22 05/22/22 05/22/22 18:59 06:59 18:59 Weight 62 kg Other: Voiding Method Toilet Toilet # Voids 2 1 1 # Bowel Movements 0 - Exam GENERAL: The patient is alert and oriented x3, not in any acute distress. Well developed, well nourished. HEENT: Pupils are round and equally reacting to light. EOMI. No scleral icterus. No conjunctival pallor. Normocephalic, atraumatic. No pharyngeal erythema. No thyromegaly. CARDIOVASCULAR: S1 and S2 present. No murmurs, rubs, or gallops. -PULMONARY: Chest is clear to auscultation, bilateral scattered wheezing. ABDOMEN: Soft, nontender, nondistended, normoactive bowel sounds. No palpable organomegaly. MUSCULOSKELETAL: No joint swelling or deformity. EXTREMITIES: No cyanosis, clubbing, or pedal edema. NEUROLOGICAL: Gross neurological examination did not reveal any focal deficits. SKIN: No rashes. no petechiae. - Labs CBC & Chem 7: 05/22/22 08:32 05/22/22 08:32 Labs: Abnormal Lab Results - Last 24 Hours (Table) 05/21/22 05/21/22 05/22/22 Range/Units 16:17 20:19 06:28 Neutrophils # (1.3-7.7) k/uL Lymphocytes # (1.0-4.8) k/uL Chloride (98-107) mmol/L Carbon Dioxide (22-30) mmol/L BUN (7-17) mg/dL Glucose (74-99) mg/dL POC Glucose (mg/dL) 236 H 238 H 159 H (70-110) mg/dL 05/22/22 05/22/22 05/22/22 Range/Units 08:32 08:32 12:12 Neutrophils # 9.7 H (1.3-7.7) k/uL Lymphocytes # 0.3 L (1.0-4.8) k/uL Chloride 79 L (98-107) mmol/L Carbon Dioxide 55 H* (22-30) mmol/L BUN 53 H (7-17) mg/dL Glucose 136 H (74-99) mg/dL POC Glucose (mg/dL) 173 H (70-110) mg/dL Assessment and Plan Assessment: Acute COPD exacerbation Acute diastolic CHF with ejection fraction 55% Acute on chronic hypoxemic respiratory failure. Chronic atrial fibrillation Elevated troponin Hyperkalemia History of tobacco addiction Plan: Continue with IV Solu-Medrol and doxycycline on Continue with Lasix per district plant engineer, she wished oral dose Pulmonary and cardiology team on the case Continue with Protonix Hold on colonoscopy per family request and secondary to advanced pulmonary disease and per patient and family request Continue with Eliquis 5 mg and monitor hemoglobin Consult with surgery team is appreciated Labs and medication were reviewed.. Continue same treatment. Continue with symptomatic treatment. Resume home medication. Monitor lytes and vitals. DVT and GI prophylaxis. Further recommendations as per clinical course of the patient DVT prophylaxis: Subcutaneous heparin on hold because of positive occult blood in stool GI Prophylaxis: Ppi PT/OT: Pending Prognosis is guarded
[2022-05-22 20:31] LABS: Glucose,Whole Blood 240 mg/dL (70-110)
[2022-05-22] MEDS: HYDROcodone/APAP 5-325MG 1 EACH TAB PO PRN (20:39)
[2022-05-22] MEDS: CALCIUM CARBONATE 500 MG CHEWABLE PO PRN (20:39)
[2022-05-23] MEDS: IPRATROPIUM-ALBUTEROL 3 ML NEB INHALATION PRN ×3 (00:20→23:43)
[2022-05-23 05:58] LABS: Glucose,Whole Blood 197 mg/dL (70-110)
[2022-05-23] MEDS: INSULIN ASPART (NovoLOG) 100 UNIT/ML VIAL SQ SCH ×4 (06:31→21:37)
[2022-05-23] MEDS: methylPREDNISolone SOD SUCCI 125 MG/2 ML VIAL IV SCH ×4 (06:31→23:15)
[2022-05-23] MEDS: IPRATROPIUM-ALBUTEROL 3 ML NEB INHALATION SCH ×4 (08:16→20:38)
[2022-05-23] MEDS: PANTOPRAZOLE 40 MG/10 ML VIAL IVP SCH (10:09)
[2022-05-23] MEDS: busPIRone HCl 5 MG TAB PO SCH ×2 (10:09→20:02)
[2022-05-23] MEDS: FUROSEMIDE 40 MG TAB PO SCH (10:10)
[2022-05-23] MEDS: LOSARTAN 50 MG TAB PO SCH (10:10)
[2022-05-23] MEDS: DILTIAZEM CD 240 MG CAP.ER.24H PO SCH (10:10)
[2022-05-23] MEDS: APIXABAN 5 MG TAB PO SCH ×2 (10:10→20:02)
[2022-05-23] MEDS: BENZONATATE 100 MG CAP PO SCH ×3 (10:10→20:02)
[2022-05-23] MEDS: FLUTICASONE 50MCG/SPRAY NASAL 16GM EA NOSTRIL SCH (10:15)
--- NOTE | 2022-05-23 10:59 | P.PN ---
Progress Note - Text Progress Note Date: 05/23/22 Patient is tolerating diet. She is had no evidence of GI bleed. He will was told 0.2. Her On exam vital signs appear stable. Abdomen soft. There patient continue supportive care.
[2022-05-23 12:11] LABS: Glucose,Whole Blood 286 mg/dL (70-110)
--- NOTE | 2022-05-23 12:23 | P.PN ---
Subjective Progress Note Date: 05/23/22 Principal diagnosis: Shortness of breath. This is a pleasant 72-year-old female patient with a history of chronic tobacco dependence of 50 years however quit in 2015, oxygen dependent. 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 She believes her lung function is at 43%. She had recently been hospitalized in [place] and had just been recently discharged. She was here in town with her daughter and she developed increasing shortness of breath cough congestion wheezing and presented here to the emergency room early this morning for the same. Chest x-ray reveals card iomegaly. Mild pulmonary fibrosis. No acute heart failure. white count 5.4. Hemoglobin 11.2. Platelets 278. D-dimer 0.48. Sodium 142. Potassium 5.3. Bicarb 41. BUN 18. Creatinine 0.53. ProBNP 3390. Troponin 0.05. Newell virus by PCR not detected. She is initiated and DuoNeb inhalations, Solu-Medrol, Symbicort and empiric antibiotics in the form of doxycycline. Normal saline at 130 ML's per hour.she is seen today in contact flotation in the emergency department. Currently sitting up in a stretcher. Awake and alert in no acute distress. Breathing is somewhat improved. Patient was reevaluated today on 05/17/22, patient had to be transferred to the ICU last night mostly because she developed atrial fibrillation and RVR. Patient also developed some component of mild congestive heart failure. Had to be placed on diuretics, we had to place the patient on BiPAP last night, however she seems to be more comfortable today, she is down to 4 L nasal cannula, and last night she was on BiPAP //40%. Chest x-ray did show evidence of mild congestive heart failure. Patient was placed on Cardizem and it was already transitioned to oral Cardizem by cardiology this morning.WBC count today is 6.8 hemoglobin is 10.9 lites are normal bicarb is 46 BUN is 18 and creatinine 0.57. Chest x-ray showed cardiomegaly and mild interstitial edema. Along with COPD. The patient is seen today 05/18/2022 in follow-up in the intensive care unit. She is currently sitting up in a chair at the bedside. Awake and alert in no acute distress. She is maintaining O2 saturations in the 90s on 5 L/m per nasal cannula. She did utilize BiPAP last night 12/6 and 40% FiO2. No IV fluids. She remains in atrial fibrillation. White count 8.1. Hemoglobin 11.5. Glucose 170. She is continued on DuoNeb inhalations, Symbicort, IV Solu-Medrol. Remains on IV diuretics. Cardizem for heart rate control. Chest x-ray continued to show cardiomegaly with pulmonary venous congestion and tiny effusi ons. Slight improvement compared to yesterday. Progress note dated 05/19/2022. This is a 72-year-old female that we saw yesterday in the intensive care unit. Today, she is seen in room 357. Currently, she is on 4 L of oxygen. No IV fluids. She does use BiPAP intermittently with settings of 12/6 and 40%. Currently resting comfortably. Feeling better. White count 8.9, hemoglobin 12.2, hematocrit 40.7, and platelet count 357,000. Sodium 142, potassium 4, chlorides 84, and CO2 55. BUN and creatinine were 24 and 0.69. Progress note dated 05/20/2022. 72-year-old female that initially was seen in the intensive care unit. She is now seen today in room 357. The patient is currently on 4 L of oxygen. At nighttime, she uses BiPAP, with settings of 12/6 and 40%. She is not receiving any IV fluids. She appears reasonably stable. Labs today include a white count 7.2, hemoglobin 11.2, hematocrit 36.8, and a platelet count that was normal. Sodium 135, potassium 4.3, chlorides 84, CO2 48, BUN 32, creatinine 0.48. Anion gap is 3. Calcium is normal. Progress note dated 05/21/2022. 72-year-old female again seen in room 357. The patient's currently on 4 L of oxygen. No IV fluids. We are going to DC the Vibramycin. We do at some Tessalon Perles 200 mg 3 times a day for her cough. The patient asked about getting a sleep study. I told her it was an outpatient procedure, and she could have a sleep study done at home, or at a sleep center. Family members reside in [place]. Current laboratory data includes a white count of 7.6, hemoglobin 12, hematocrit 38.2, and a platelet count of 273,000. Sodium 137, potassium 3.6, chloride 79, CO2 54, BUN 46, and creatinine 0.76. Progress note dated 05/22/2022. 9-year-old female, again seen in room 357. Currently, she is on oxygen at 5 L. No IV fluids. She's feeling about the same. Very short of breath with any activity. Antibiotics were discontinued a couple days ago. The patient's hoping to get well enough to travel to [place], which is where her family is. Labs today include a white count of 10.6, hemoglobin 12.2, hematocrit 39.1, and platelet count 303,000. Sodium 138, potassium 3.7, chloride 79, CO2 55, BUN 53, and creatinine 0.97. Progress note dated 05/23/2022. The patient is seen today in room 357. She does use BiPAP intermittently, with settings of 12/6 and 40%. Her cough is better. She remains on 5 L of oxygen. We'll hoping for discharge, early next week. The patient is minimally improved. No new labs today other than a glucose of 286. Objective - Vital Signs Vital signs: Vital Signs Temp 98.3 F 05/23/22 08:30 Pulse 76 05/23/22 12:01 Resp 18 05/23/22 08:30 BP 152/67 05/23/22 08:30 Pulse Ox 93 L 05/23/22 08:30 FiO2 40 05/22/22 20:00 Intake & Output 05/22/22 05/23/22 05/23/22 18:59 06:59 18:59 Intake Total 360 Balance 360 Intake: Oral 360 Other: Voiding Method Toilet Toilet # Voids 1 # Bowel Movements 0 - Exam No acute distress, oriented 3. Obese white female, currently on 5 L. No respiratory distress. No conversational dyspnea. Saturations are 93 %. HEENT examination is grossly unremarkable. Neck supple. Full range of motion. No adenopathy thyromegaly or neck vein distention. Cardiovascular examination reveals regular rhythm rate. S1-S2 normal. No S3 or S4. No discernible murmur noted. Heart sounds are distant. Heart rate 76 bpm. Lungs reveal scattered expiratory wheezes and rhonchi. Breath sounds are equal bilaterally but diminished throughout. No crackles. Breath sounds equal. Saturation is 93 %. Abdomen soft bowel sounds are heard. No masses or tenderness. Extremities are intact. No cyanosis clubbing or edema. Skin is without rash or lesion. Neurologic examination is brief but nonfocal. - Labs CBC & Chem 7: 05/22/22 08:32 05/22/22 08:32 Labs: Abnormal Lab Results - Last 24 Hours (Table) 05/22/22 05/22/22 05/23/22 Range/Units 16:57 20:30 05:57 POC Glucose (mg/dL) 214 H 240 H 197 H (70-110) mg/dL 05/23/22 Range/Units 12:02 POC Glucose (mg/dL) 286 H (70-110) mg/dL Assessment and Plan Assessment: Acute on chronic hypoxemic respiratory failure secondary to an exacerbation of COPD. Chronic hypercapnic respiratory failure. History of chronic obstructive pulmonary disease, oxygen dependent, and severe. History of 50 years of chronic tobacco dependence, however quit in 2014. Atrial fibrillation/flutter. Acute exacerbation of diastolic congestive heart failure. Recent hospitalization in [place], [place]. Obesity. Plan: Plan dated 05/19/2022. The patient appears to be doing reasonably well. She feels better. She continues on Solu-Medrol, DuoNeb, but has declined Symbicort. We will continue to follow the patient make recommendations along the way. She clearly has severe chronic hypoxemic and hypercapnic respiratory failure. Prognosis is guarded. Saturations are perfectly adequate between 88 and 92%. Oxygen should be titrated carefully. Plan dated 05/20/2022. The patient continues on 4 L of oxygen. In addition, from the pulmonary standpoint, she is on doxycycline, 100 mg twice a day, Flonase nasal spray, and updrafts with albuterol sulfate and ipratropium bromide. She continues on Solu- Medrol, at 60 mg every 6 hours. We will continue to follow. Prognosis is guarded. She declined an endoscopy today by surgery. Plan dated 05/21/2022. Today we discontinue the patient's Vibramycin. In addition, she complained of cough, so we added some Tessalon Perles, 200 mg 3 times a day. The rest of her medications are reviewed and are appropriate. Labs, x-rays, medications are reviewed. She continues on appropriate medications, including duo nebs, and Solu-Medrol. We will continue to follow make recommendations along the way. Prognosis is guarded. Plan dated 05/22/2022. The patient is seen again in room 357. She's currently on 5 L. From the pulmonary standpoint, she is getting Tessalon, updrafts with albuterol sulfate and ipratropium bromide, and Solu-Medrol. The patient refused Symbicort. We wi ll continue to follow make recommendations along the way. This may be the best she gets. Overall prognosis remains very guarded. The patient does suffer from chronic hypoxemic and hypercapnic respiratory failure. Plan dated 05/23/2022. The patient feels better from the cough standpoint. Her breathing is still a bit rough. The patient's on appropriate medications. She is on albuterol sulfate, ipratropium bromide, Solu-Medrol, and Tessalon Perles for her cough. She has refused Symbicort. We will continue to follow and make recommendations along the way. He is currently on 5 L of oxygen, and she uses BiPAP intermittently, mostly at nighttime and sometimes during the day. Labs, x-rays, and medications are all reviewed. Time with Patient: Less than 30
[2022-05-23 17:08] LABS: Glucose,Whole Blood 127 mg/dL (70-110)
[2022-05-23] MEDS: CALCIUM CARBONATE 500 MG CHEWABLE PO PRN (20:01)
[2022-05-23] MEDS: HYDROcodone/APAP 5-325MG 1 EACH TAB PO PRN (20:02)
[2022-05-23 20:09] LABS: Glucose,Whole Blood 321 mg/dL (70-110)
[2022-05-24] MEDS: IPRATROPIUM-ALBUTEROL 3 ML NEB INHALATION PRN (03:16)
[2022-05-24] MEDS: methylPREDNISolone SOD SUCCI 125 MG/2 ML VIAL IV SCH ×4 (05:16→23:47)
[2022-05-24 06:10] LABS: Glucose,Whole Blood 232 mg/dL (70-110)
[2022-05-24] MEDS: INSULIN ASPART (NovoLOG) 100 UNIT/ML VIAL SQ SCH ×4 (06:36→20:54)
[2022-05-24] MEDS: IPRATROPIUM-ALBUTEROL 3 ML NEB INHALATION SCH ×4 (08:10→20:31)
[2022-05-24] MEDS: PANTOPRAZOLE 40 MG/10 ML VIAL IVP SCH (09:29)
[2022-05-24] MEDS: FUROSEMIDE 40 MG TAB PO SCH (09:30)
[2022-05-24] MEDS: BENZONATATE 100 MG CAP PO SCH ×3 (09:30→20:54)
[2022-05-24] MEDS: HYDROcodone/APAP 5-325MG 1 EACH TAB PO PRN (09:30)
[2022-05-24] MEDS: busPIRone HCl 5 MG TAB PO SCH ×2 (09:31→20:54)
[2022-05-24] MEDS: LOSARTAN 50 MG TAB PO SCH (09:31)
[2022-05-24] MEDS: APIXABAN 5 MG TAB PO SCH ×2 (09:31→20:54)
[2022-05-24] MEDS: DILTIAZEM CD 240 MG CAP.ER.24H PO SCH (09:31)
[2022-05-24] MEDS: FLUTICASONE 50MCG/SPRAY NASAL 16GM EA NOSTRIL SCH (09:32)
--- NOTE | 2022-05-24 10:39 | P.PN ---
Progress Note - Text Progress Note Date: 05/24/22 Patient remains stable. There is no sign of GI bleed. Her last seen. 0.2. On exam vital signs appear stable. Abdomen soft. No surgical intervention is planned. We will sign off.
[2022-05-24] MEDS: NYSTATIN 100,000 UNIT/ML SUSP 500,000 UNIT/5 ML CUP PO SCH ×4 (11:13→20:54)
--- NOTE | 2022-05-24 11:30 | P.PN ---
Subjective Progress Note Date: 05/24/22 Principal diagnosis: Shortness of breath. This is a pleasant 72-year-old female patient with a history of chronic tobacco dependence of 50 years however quit in 2015, oxygen dependent. 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 She believes her lung function is at 43%. She had recently been hospitalized in [place] and had just been recently discharged. She was here in town with her daughter and she developed increasing shortness of breath cough congestion wheezing and presented here to the emergency room early this morning for the same. Chest x-ray reveals card iomegaly. Mild pulmonary fibrosis. No acute heart failure. white count 5.4. Hemoglobin 11.2. Platelets 278. D-dimer 0.48. Sodium 142. Potassium 5.3. Bicarb 41. BUN 18. Creatinine 0.53. ProBNP 3390. Troponin 0.05. Newell virus by PCR not detected. She is initiated and DuoNeb inhalations, Solu-Medrol, Symbicort and empiric antibiotics in the form of doxycycline. Normal saline at 130 ML's per hour.she is seen today in contact flotation in the emergency department. Currently sitting up in a stretcher. Awake and alert in no acute distress. Breathing is somewhat improved. Patient was reevaluated today on 05/17/22, patient had to be transferred to the ICU last night mostly because she developed atrial fibrillation and RVR. Patient also developed some component of mild congestive heart failure. Had to be placed on diuretics, we had to place the patient on BiPAP last night, however she seems to be more comfortable today, she is down to 4 L nasal cannula, and last night she was on BiPAP //40%. Chest x-ray did show evidence of mild congestive heart failure. Patient was placed on Cardizem and it was already transitioned to oral Cardizem by cardiology this morning.WBC count today is 6.8 hemoglobin is 10.9 lites are normal bicarb is 46 BUN is 18 and creatinine 0.57. Chest x-ray showed cardiomegaly and mild interstitial edema. Along with COPD. The patient is seen today 05/18/2022 in follow-up in the intensive care unit. She is currently sitting up in a chair at the bedside. Awake and alert in no acute distress. She is maintaining O2 saturations in the 90s on 5 L/m per nasal cannula. She did utilize BiPAP last night 12/6 and 40% FiO2. No IV fluids. She remains in atrial fibrillation. White count 8.1. Hemoglobin 11.5. Glucose 170. She is continued on DuoNeb inhalations, Symbicort, IV Solu-Medrol. Remains on IV diuretics. Cardizem for heart rate control. Chest x-ray continued to show cardiomegaly with pulmonary venous congestion and tiny effusi ons. Slight improvement compared to yesterday. Progress note dated 05/19/2022. This is a 72-year-old female that we saw yesterday in the intensive care unit. Today, she is seen in room 357. Currently, she is on 4 L of oxygen. No IV fluids. She does use BiPAP intermittently with settings of 12/6 and 40%. Currently resting comfortably. Feeling better. White count 8.9, hemoglobin 12.2, hematocrit 40.7, and platelet count 357,000. Sodium 142, potassium 4, chlorides 84, and CO2 55. BUN and creatinine were 24 and 0.69. Progress note dated 05/20/2022. 72-year-old female that initially was seen in the intensive care unit. She is now seen today in room 357. The patient is currently on 4 L of oxygen. At nighttime, she uses BiPAP, with settings of 12/6 and 40%. She is not receiving any IV fluids. She appears reasonably stable. Labs today include a white count 7.2, hemoglobin 11.2, hematocrit 36.8, and a platelet count that was normal. Sodium 135, potassium 4.3, chlorides 84, CO2 48, BUN 32, creatinine 0.48. Anion gap is 3. Calcium is normal. Progress note dated 05/21/2022. 72-year-old female again seen in room 357. The patient's currently on 4 L of oxygen. No IV fluids. We are going to DC the Vibramycin. We do at some Tessalon Perles 200 mg 3 times a day for her cough. The patient asked about getting a sleep study. I told her it was an outpatient procedure, and she could have a sleep study done at home, or at a sleep center. Family members reside in [place]. Current laboratory data includes a white count of 7.6, hemoglobin 12, hematocrit 38.2, and a platelet count of 273,000. Sodium 137, potassium 3.6, chloride 79, CO2 54, BUN 46, and creatinine 0.76. Progress note dated 05/22/2022. 9-year-old female, again seen in room 357. Currently, she is on oxygen at 5 L. No IV fluids. She's feeling about the same. Very short of breath with any activity. Antibiotics were discontinued a couple days ago. The patient's hoping to get well enough to travel to [place], which is where her family is. Labs today include a white count of 10.6, hemoglobin 12.2, hematocrit 39.1, and platelet count 303,000. Sodium 138, potassium 3.7, chloride 79, CO2 55, BUN 53, and creatinine 0.97. Progress note dated 05/23/2022. The patient is seen today in room 357. She does use BiPAP intermittently, with settings of 12/6 and 40%. Her cough is better. She remains on 5 L of oxygen. We'll hoping for discharge, early next week. The patient is minimally improved. No new labs today other than a glucose of 286. Progress note dated 05/24/2022. The patient is again seen in room 357. The patient is currently on 5 L of oxygen. She uses the BiPAP intermittently, and mostly at nighttime. Currently, the patient's doing about the same to slightly better. Still very short of breath, and bronchospastic. Labs today include glucose of 232. The patient is not producing any phlegm when she coughs. No fever or chills. No chest pain or chest discomfort. Objective - Vital Signs Vital signs: Vital Signs Temp 98.0 F 05/24/22 09:00 Pulse 103 H 05/24/22 09:00 Resp 18 05/24/22 09:00 BP 124/72 05/24/22 09:00 Pulse Ox 93 L 05/24/22 09:00 FiO2 40 05/23/22 16:12 Intake & Output 05/23/22 05/24/22 05/24/22 18:59 06:59 18:59 Intake Total 358 480 Output Total 0 Balance 358 480 Intake: Oral 358 480 Output: Stool 0 Other: Voiding Method Toilet Toilet Toilet # Voids 3 1 1 # Bowel Movements 1 - Exam No acute distress, oriented 3. Obese white female, currently on 5 L. No respiratory distress. No conversational dyspnea. Saturations are 94 %. HEENT examination is grossly unremarkable. Neck supple. Full range of motion. No adenopathy thyromegaly or neck vein distention. Cardiovascular examination reveals regular rhythm rate. S1-S2 normal. No S3 or S4. No discernible murmur noted. Heart sounds are distant. Heart rate 82 bpm. Lungs reveal scattered expiratory wheezes and rhonchi. Breath sounds are equal bilaterally but diminished throughout. No crackles. Breath sounds equal. Saturation is 94 %. Abdomen soft bowel sounds are heard. No masses or tenderness. Extremities are intact. No cyanosis clubbing or edema. Skin is without rash or lesion. Neurologic examination is brief but nonfocal. - Labs CBC & Chem 7: 05/22/22 08:32 05/22/22 08:32 Labs: Abnormal Lab Results - Last 24 Hours (Table) 05/23/22 05/23/22 05/23/22 Range/Units 12:02 16:49 20:08 POC Glucose (mg/dL) 286 H 127 H 321 H (70-110) mg/dL 05/24/22 Range/Units 06:09 POC Glucose (mg/dL) 232 H (70-110) mg/dL Assessment and Plan Assessment: Acute on chronic hypoxemic respiratory failure secondary to an exacerbation of COPD. Chronic hypercapnic respiratory failure. History of chronic obstructive pulmonary disease, oxygen dependent, and severe. History of 50 years of chronic tobacco dependence, however quit in 2014. Atrial fibrillation/flutter. Acute exacerbation of diastolic congestive heart failure. Recent hospitalization in [place], [place]. Obesity. Plan: Plan dated 05/19/2022. The patient appears to be doing reasonably well. She feels better. She continu es on Solu-Medrol, DuoNeb, but has declined Symbicort. We will continue to follow the patient make recommendations along the way. She clearly has severe chronic hypoxemic and hypercapnic respiratory failure. Prognosis is guarded. Saturations are perfectly adequate between 88 and 92%. Oxygen should be titrated carefully. Plan dated 05/20/2022. The patient continues on 4 L of oxygen. In addition, from the pulmonary standpoint, she is on doxycycline, 100 mg twice a day, Flonase nasal spray, and updrafts with albuterol sulfate and ipratropium bromide. She continues on Solu- Medrol, at 60 mg every 6 hours. We will continue to follow. Prognosis is guarded. She declined an endoscopy today by surgery. Plan dated 05/21/2022. Today we discontinue the patient's Vibramycin. In addition, she complained of cough, so we added some Tessalon Perles, 200 mg 3 times a day. The rest of her medications are reviewed and are appropriate. Labs, x-rays, medications are reviewed. She continues on appropriate medications, including duo nebs, and Solu-Medrol. We will continue to follow make recommendations along the way. Prognosis is guarded. Plan dated 05/22/2022. The patient is seen again in room 357. She's currently on 5 L. From the pulmonary standpoint, she is getting Tessalon, updrafts with albuterol sulfate and ipratropium bromide, and Solu-Medrol. The patient refused Symbicort. We will continue to follow make recommendations along the way. This may be the best she gets. Overall prognosis remains very guarded. The patient does suffer from chronic hypoxemic and hypercapnic respiratory failure. Plan dated 05/23/2022. The patient feels better from the cough standpoint. Her breathing is still a bit rough. The patient's on appropriate medications. She is on albuterol sulfate, ipratropium bromide, Solu-Medrol, and Tessalon Perles for her cough. She has refused Symbicort. We will continue to follow and make recommendations along the way. He is currently on 5 L of oxygen, and she uses BiPAP intermittently, mostly at nighttime and sometimes during the day. Labs, x-rays, and medications are all reviewed. Plan dated 05/24/2022. The patient continues on appropriate pulmonary medications including Tessalon, albuterol sulfate, and ipratropium bromide, and Solu-Medrol. The patient refused the Symbicort. We will continue to follow make recommendations along the way. Prognosis is guarded. Labs, x-rays, and medications are all reviewed. Time with Patient: Less than 30
[2022-05-24 11:37] LABS: Glucose,Whole Blood 173 mg/dL (70-110)
--- NOTE | 2022-05-24 12:00 | P.PN ---
Subjective Progress Note Date: 05/23/22 Principal diagnosis: Acute COPD exacerbation Acute diastolic CHF with ejection fraction 55% Acute on chronic hypoxemic respiratory failure 72-year-old lady with past medical history significant for chronic hypoxic respiratory failure, COPD, history of tobacco addiction who presented to the ER because of worsening shortness of breath. Patient was recently admitted in the hospital in [place] for COPD exacerbation and was discharged and was visiting he r daughter here. Patient was using oxygen at home, normally 2 L at rest at 4 L on exertion but stated that yesterday she felt that her oxygen was not working for her. Patient was getting short of breath on exertion, also complaining of cough. Denied any chest pain. There was no complain of orthopnea or PND. Denies any swelling of feet. Patient was worked up in the ER, initial lab work showed patient to have a white count of 5.4, hemoglobin 11.2, platelet count of 278, sodium 142 potassium 5.3, bicarbonate 41, covid was negative, chest x-ray was negative for pneumonia. Patient was admitted to hospitalist service 05/18/2012 Patient breathing pattern is improving and currently she is on [address] oxygen via nasal cannula She has occult blood positive in his stool but d-dimer is negative. Sputum culture is pending Chest x-ray showed CHF Ejection fraction 55% She's on doxycycline, IV Solu-Medrol, IV Lasix 40 mg daily also as oral Cardizem 240 mg per home mission worker in line Protonix and its and we'll check iron studies 05/23/2022 Patient is seen and evaluated sitting up in bedside chair; no specific complaints reported Continues to saturate well 93%; She does use BiPAP intermittently, with settings of 12/6 and 40%. Her cough is better. She remains on 5 L of oxygen. We'll hoping for discharge, early next week. The patient is minimally improved. No new labs today other than a glucose of 286. Patient remains on albuterol sulfate, ipratropium bromide, Solu-Medrol, and Tessalon Perles for her cough. She has refused Symbicort. Objective - Vital Signs Vital signs: Vital Signs Temp 98.3 F 05/23/22 08:30 Pulse 76 05/23/22 08:31 Resp 18 05/23/22 08:30 BP 152/67 05/23/22 08:30 Pulse Ox 93 L 05/23/22 08:30 FiO2 40 05/22/22 20:00 Intake & Output 05/22/22 05/23/22 05/23/22 18:59 06:59 18:59 Intake Total 360 Balance 360 Intake: Oral 360 Other: Voiding Method Toilet Toilet # Voids 1 # Bowel Movements 0 - Exam GENERAL: The patient is alert and oriented x3, not in any acute distress. Well developed, well nourished. HEENT: Pupils are round and equally reacting to light. EOMI. No scleral icterus. No conjunctival pallor. Normocephalic, atraumatic. No pharyngeal erythema. No thyromegaly. CARDIOVASCULAR: S1 and S2 present. No murmurs, rubs, or gallops. -PULMONARY: Chest is clear to auscultation, bilateral scattered wheezing. ABDOMEN: Soft, nontender, nondistended, normoactive bowel sounds. No palpable organomegaly. MUSCULOSKELETAL: No joint swelling or deformity. EXTREMITIES: No cyanosis, clubbing, or pedal edema. NEUROLOGICAL: Gross neurological examination did not reveal any focal deficits. SKIN: No rashes. no petechiae. - Labs CBC & Chem 7: 05/22/22 08:32 05/22/22 08:32 Labs: Abnormal Lab Results - Last 24 Hours (Table) 05/22/22 05/22/22 05/22/22 Range/Units 12:12 16:57 20:30 POC Glucose (mg/dL) 173 H 214 H 240 H (70-110) mg/dL 05/23/22 Range/Units 05:57 POC Glucose (mg/dL) 197 H (70-110) mg/dL Assessment and Plan Assessment: Acute COPD exacerbation Acute diastolic CHF with ejection fraction 55% Acute on chronic hypoxemic respiratory failure. Chronic atrial fibrillation Elevated troponin Hyperkalemia History of tobacco addiction Plan: Continue with IV Solu-Medrol and doxycycline on Continue with Lasix per home mission worker, she wished oral dose Pulmonary and cardiology team on the case Continue with Protonix Hold on colonoscopy per family request and secondary to advanced pulmonary disease and per patient and family request Continue with Eliquis 5 mg and monitor hemoglobin Consult with surgery team is appreciated Labs and medication were reviewed.. Continue same treatment. Continue with symptomatic treatment. Resume home medication. Monitor lytes and vitals. DVT and GI prophylaxis. Further recommendations as per clinical course of the patient DVT prophylaxis: Subcutaneous heparin on hold because of positive occult blood in stool GI Prophylaxis: Ppi PT/OT: Pending Prognosis is guarded
[2022-05-24 12:54] LABS: Calcium 8.5 mg/dL (8.4-10.2)
[2022-05-24 13:02] LABS: HCT 39.4 % (34.0-46.0); HGB 11.8 gm/dL (11.4-16.0); Hypochromasia Marked; MCH 28.2 pg (25.0-35.0); MCHC 29.9 g/dL (31.0-37.0); MCV 94.4 fL (80.0-100.0); Mean Platelet Volume 9.6; Platelet Count 299 k/uL (150-450); RBC 4.17 m/uL (3.80-5.40); RDW 13.1 % (11.5-15.5); WBC 17.9 k/uL (3.8-10.6)
[2022-05-24 13:25] LABS: Lymphocytes # (M) 0.54 k/uL (1.0-4.8); Metamyelocytes # (M) 0.18 k/uL (0); Metamyelocytes % 1 %; Monocytes # (M) 1.79 k/uL (0-1.0); Neutrophils # (M) 15.57 k/uL (1.3-7.7); Neutrophils % (M) 87 %; Nucleated Red Blood Cells 0 /100 WBC (0-0); Total Cells Counted 200
[2022-05-24 16:38] LABS: Glucose,Whole Blood 160 mg/dL (70-110)
--- NOTE | 2022-05-24 17:39 | P.PN ---
Subjective Progress Note Date: 05/24/22 Principal diagnosis: Acute COPD exacerbation Acute diastolic CHF with ejection fraction 55% Acute on chronic hypoxemic respiratory failure 72-year-old lady with past medical history significant for chronic hypoxic respiratory failure, COPD, history of tobacco addiction who presented to the ER because of worsening shortness of breath. Patient was recently admitted in the hospital in [place] for COPD exacerbation and was discharged and was visiting he r daughter here. Patient was using oxygen at home, normally 2 L at rest at 4 L on exertion but stated that yesterday she felt that her oxygen was not working for her. Patient was getting short of breath on exertion, also complaining of cough. Denied any chest pain. There was no complain of orthopnea or PND. Denies any swelling of feet. Patient was worked up in the ER, initial lab work showed patient to have a white count of 5.4, hemoglobin 11.2, platelet count of 278, sodium 142 potassium 5.3, bicarbonate 41, covid was negative, chest x-ray was negative for pneumonia. Patient was admitted to hospitalist service 05/18/2012 Patient breathing pattern is improving and currently she is on [address] oxygen via nasal cannula She has occult blood positive in his stool but d-dimer is negative. Sputum culture is pending Chest x-ray showed CHF Ejection fraction 55% She's on doxycycline, IV Solu-Medrol, IV Lasix 40 mg daily also as oral Cardizem 240 mg per electronics department manager in line Protonix and its and we'll check iron studies 05/23/2022 Patient is seen and evaluated sitting up in bedside chair; no specific complaints reported Continues to saturate well 93%; She does use BiPAP intermittently, with settings of 12/6 and 40%. Her cough is better. She remains on 5 L of oxygen. We'll hoping for discharge, early next week. The patient is minimally improved. No new labs today other than a glucose of 286. Patient remains on albuterol sulfate, ipratropium bromide, Solu-Medrol, and Tessalon Perles for her cough. She has refused Symbicort. 05/24/2022 Patient is seen and evaluated in room at bedside; The patient is currently on 5 L of oxygen. She uses the BiPAP intermittently, and mostly at nighttime. Currently, the patient's doing about the same to slightly better. Still very short of breath, and bronchospastic. Labs include glucose of 232, CBC reveals a did receive 17.9 which is marked elevation from 10.6 on 05/22/2022, patient is currently on IV steroids, sodium 137, potassium 4.0, BUN/creatinine of 47/0.79 The patient is not producing any phlegm when she coughs. No fever or chills. No chest pain or chest discomfort. Patient remains on Tessalon, albuterol sulfate, and ipratropium bromide, and Solu-Medrol. The patient refused the Symbicort. Patient has been placed back on home dose of Eliquis and hemoglobin is being monitored closely Objective - Vital Signs Vital signs: Vital Signs Temp 98.0 F 05/24/22 09:00 Pulse 103 H 05/24/22 09:00 Resp 18 05/24/22 09:00 BP 124/72 05/24/22 09:00 Pulse Ox 93 L 05/24/22 09:00 FiO2 40 05/23/22 16:12 Intake & Output 05/23/22 05/24/22 05/24/22 18:59 06:59 18:59 Intake Total 358 480 240 Output Total 0 Balance 358 480 240 Intake: Oral 358 480 240 Output: Stool 0 Other: Voiding Method Toilet Toilet Toilet # Voids 3 1 1 # Bowel Movements 1 - Exam GENERAL: The patient is alert and oriented x3, not in any acute distress. Well developed, well nourished. HEENT: Pupils are round and equally reacting to light. EOMI. No scleral icterus. No conjunctival pallor. Normocephalic, atraumatic. No pharyngeal erythema. No thyromegaly. CARDIOVASCULAR: S1 and S2 present. No murmurs, rubs, or gallops. -PULMONARY: Chest is clear to auscultation, bilateral scattered wheezing. ABDOMEN: Soft, nontender, nondistended, normoactive bowel sounds. No palpable organomegaly. MUSCULOSKELETAL: No joint swelling or deformity. EXTREMITIES: No cyanosis, clubbing, or pedal edema. NEUROLOGICAL: Gross neurological examination did not reveal any focal deficits. SKIN: No rashes. no petechiae. - Labs CBC & Chem 7: 05/24/22 12:31 05/24/22 12:31 Labs: Abnormal Lab Results - Last 24 Hours (Table) 12/10/22 12/10/22 12/10/22 Range/Units 12:02 16:49 20:08 POC Glucose (mg/dL) 286 H 127 H 321 H (70-110) mg/dL 05/24/22 05/24/22 Range/Units 06:09 11:35 POC Glucose (mg/dL) 232 H 173 H (70-110) mg/dL Assessment and Plan Assessment: Acute COPD exacerbation Acute diastolic CHF with ejection fraction 55% Acute on chronic hypoxemic respiratory failure. Chronic atrial fibrillation Elevated troponin Hyperkalemia History of tobacco addiction Plan: Continue with IV Solu-Medrol and doxycycline on Continue with Lasix per electronics department manager, she wished oral dose Pulmonary and cardiology team on the case Continue with Protonix Hold on colonoscopy per family request and secondary to advanced pulmonary disease and per patient and family request Continue with Eliquis 5 mg and monitor hemoglobin Consult with surgery team is appreciated Labs and medication were reviewed.. Continue same treatment. Continue with symptomatic treatment. Resume home medication. Monitor lytes and vitals. DVT and GI prophylaxis. Further recommendations as per clinical course of the patient DVT prophylaxis: Subcutaneous heparin on hold because of positive occult blood in stool GI Prophylaxis: Ppi PT/OT: Pending Prognosis is guarded
[2022-05-24 20:37] LABS: Glucose,Whole Blood 295 mg/dL (70-110)
[2022-05-25] MEDS: methylPREDNISolone SOD SUCCI 125 MG/2 ML VIAL IV SCH ×3 (05:23→16:58)
[2022-05-25 06:14] LABS: Glucose,Whole Blood 167 mg/dL (70-110)
[2022-05-25] MEDS: INSULIN ASPART (NovoLOG) 100 UNIT/ML VIAL SQ SCH ×4 (06:16→22:08)
[2022-05-25 08:15] LABS: Basophils # (A) 0.1 k/uL (0-0.2); Basophils % (A) 0 %; Eosinophils % (A) 0 %; HCT 37.6 % (34.0-46.0); Hypochromasia Marked; Lymphocytes # (A) 0.3 k/uL (1.0-4.8); Lymphocytes % (A) 1 %; MCH 29.4 pg (25.0-35.0); MCHC 31.9 g/dL (31.0-37.0); MCV 92.2 fL (80.0-100.0); Mean Platelet Volume 10.8; Monocytes # (A) 0.8 k/uL (0-1.0); Monocytes % (A) 4 %; Neutrophils # (A) 20.2 k/uL (1.3-7.7); Neutrophils % (A) 94 %; Platelet Count 178 k/uL (150-450); RBC 4.08 m/uL (3.80-5.40); RDW 12.9 % (11.5-15.5); WBC 21.4 k/uL (3.8-10.6)
[2022-05-25 08:16] LABS: African American GFR (CKD) >90 (>60 ml/min/1.73 sqM); Blood Urea Nitrogen 42 mg/dL (7-17); Calcium 8.2 mg/dL (8.4-10.2); Chloride 79 mmol/L (98-107); Glucose 144 mg/dL (74-99); Non-African American GFR(CKD) >90 (>60 ml/min/1.73 sqM); Sodium 137 mmol/L (137-145)
[2022-05-25 08:30] LABS: Anion Gap 2 mmol/L
[2022-05-25 08:33] LABS: Carbon Dioxide 56 mmol/L (22-30); Potassium 4.8 mmol/L (3.5-5.1)
[2022-05-25] MEDS: IPRATROPIUM-ALBUTEROL 3 ML NEB INHALATION SCH ×4 (09:31→21:48)
[2022-05-25] MEDS: LOSARTAN 50 MG TAB PO SCH (09:55)
[2022-05-25] MEDS: NYSTATIN 100,000 UNIT/ML SUSP 500,000 UNIT/5 ML CUP PO SCH ×4 (09:55→22:08)
[2022-05-25] MEDS: DILTIAZEM CD 240 MG CAP.ER.24H PO SCH (09:56)
[2022-05-25] MEDS: busPIRone HCl 5 MG TAB PO SCH ×2 (09:56→22:07)
[2022-05-25] MEDS: FUROSEMIDE 40 MG TAB PO SCH (09:56)
[2022-05-25] MEDS: PANTOPRAZOLE 40 MG/10 ML VIAL IVP SCH (09:56)
[2022-05-25] MEDS: APIXABAN 5 MG TAB PO SCH ×2 (09:56→22:07)
[2022-05-25] MEDS: BENZONATATE 100 MG CAP PO SCH ×3 (09:56→22:07)
[2022-05-25] MEDS: FLUTICASONE 50MCG/SPRAY NASAL 16GM EA NOSTRIL SCH (09:57)
[2022-05-25] MEDS: HYDROcodone/APAP 5-325MG 1 EACH TAB PO PRN ×2 (09:59→23:59)
[2022-05-25 11:37] LABS: Glucose,Whole Blood 307 mg/dL (70-110)
[2022-05-25] MEDS: FUROSEMIDE 10 MG/ML 4 ML VIAL IV SCH ×2 (12:06→22:08)
[2022-05-25] MEDS: guaiFENesin 600 MG TABLET.ER PO SCH ×2 (12:07→22:07)
--- NOTE | 2022-05-25 12:08 | XR ---
EXAMINATION TYPE: XR chest 1V portable DATE OF EXAM: 05/25/2022 COMPARISON: 05/18/2022 HISTORY: Shortness of breath TECHNIQUE: Single frontal view of the chest is obtained. FINDINGS: Atherosclerotic change aorta. Diffuse osteopenia with arthropathy of the shoulders. Subseg mental changes both lung bases. Hyperinflation suggests COPD. Chronic deformity of the rib cage seen. Coarsened interstitium stable. IMPRESSION: 1. Basilar atelectasis favored over infiltrate. Correlate clinically. 2. Correlate for chronic interstitial lung disease
[2022-05-25 16:33] LABS: Glucose,Whole Blood 163 mg/dL (70-110)
--- NOTE | 2022-05-25 18:12 | P.PN ---
Subjective Progress Note Date: 05/25/22 On 05/25/2022, the patient is being seen for a follow-up. This patient has advanced COPD and she is oxygen dependent. The patient presented to us with an acute COPD exacerbation. The patient remains on bronchodilators and steroids. Continues to have significant amount of edema lower extremity bilaterally. The WBC count is at 21.4 with a hemoglobin of 12 and a platelet count of 178. Sodium level is at 137 with a serum bicarb of 6 with a potassium level of 4.8. BUN is at 42 with a creatinine of 0.5. Calcium is level at 8.2. The patient remains on DuoNeb about treatments [id number]. The patient is on IV Solu- Medrol 60 mg every 6 hours. Remains spastic and wheezy. Remains on diuretic antibiotic coverage with IV Rocephin. Objective - Vital Signs Vital signs: Vital Signs Temp 98.0 F 05/25/22 08:00 Pulse 101 H 05/25/22 09:45 Resp 22 05/25/22 08:00 BP 152/68 05/25/22 08:00 Pulse Ox 94 L 05/25/22 09:38 FiO2 40 05/23/22 16:12 Intake & Output 05/24/22 05/25/22 05/25/22 18:59 06:59 18:59 Intake Total 358 118 Output Total 600 Balance -242 118 Intake: Oral 358 118 Output: Urine 600 Other: Voiding Method Toilet Toilet # Voids 1 2 - Exam No acute distress, oriented 3. Obese white female, currently on 5 L. No respiratory distress. No conversational dyspnea. Saturations are 94 %. HEENT examination is grossly unremarkable. Neck supple. Full range of motion. No adenopathy thyromegaly or neck vein distention. Cardiovascular examination reveals regular rhythm rate. S1-S2 normal. No S3 or S4. No discernible murmur noted. Heart sounds are distant. Lungs reveal scattered expiratory wheezes and rhonchi. Breath sounds are equal bilaterally but diminished throughout. No crackles. Breath sounds equal. Abdomen soft bowel sounds are heard. No masses or tenderness. Extremities are intact. No cyanosis clubbing or edema. Skin is without rash or lesion. Neurologic examination is brief but nonfocal. - Labs CBC & Chem 7: 05/25/22 07:00 05/25/22 07:00 Labs: Abnormal Lab Results - Last 24 Hours (Table) 05/24/22 05/24/22 05/24/22 Range/Units 11:35 12:31 12:31 WBC 17.9 H (3.8-10.6) k/uL MCHC 29.9 L (31.0-37.0) g/dL Neutrophils # (1.3-7.7) k/uL Neutrophils # (Manual) 15.57 H (1.3-7.7) k/uL Lymphocytes # (1.0-4.8) k/uL Lymphocytes # (Manual) 0.54 L (1.0-4.8) k/uL Monocytes # (Manual) 1.79 H (0-1.0) k/uL Metamyelocytes # (Man) 0.18 H (0) k/uL Chloride 77 L (98-107) mmol/L Carbon Dioxide 61 H* (22-30) mmol/L BUN 47 H (7-17) mg/dL Creatinine (0.52-1.04) mg/dL Glucose 133 H (74-99) mg/dL POC Glucose (mg/dL) 173 H (70-110) mg/dL Calcium (8.4-10.2) mg/dL 05/24/22 05/24/22 05/25/22 Range/Units 16:35 20:36 06:09 WBC (3.8-10.6) k/uL MCHC (31.0-37.0) g/dL Neutrophils # (1.3-7.7) k/uL Neutrophils # (Manual) (1.3-7.7) k/uL Lymphocytes # (1.0-4.8) k/uL Lymphocytes # (Manual) (1.0-4.8) k/uL Monocytes # (Manual) (0-1.0) k/uL Metamyelocytes # (Man) (0) k/uL Chloride (98-107) mmol/L Carbon Dioxide (22-30) mmol/L BUN (7-17) mg/dL Creatinine (0.52-1.04) mg/dL Glucose (74-99) mg/dL POC Glucose (mg/dL) 160 H 295 H 167 H (70-110) mg/dL Calcium (8.4-10.2) mg/dL 05/25/22 05/25/22 Range/Units 07:00 07:00 WBC 21.4 H (3.8-10.6) k/uL MCHC (31.0-37.0) g/dL Neutrophils # 20.2 H (1.3-7.7) k/uL Neutrophils # (Manual) (1.3-7.7) k/uL Lymphocytes # 0.3 L (1.0-4.8) k/uL Lymphocytes # (Manual) (1.0-4.8) k/uL Monocytes # (Manual) (0-1.0) k/uL Metamyelocytes # (Man) (0) k/uL Chloride 79 L (98-107) mmol/L Carbon Dioxide 56 H* (22-30) mmol/L BUN 42 H (7-17) mg/dL Creatinine 0.51 L (0.52-1.04) mg/dL Glucose 144 H (74-99) mg/dL POC Glucose (mg/dL) (70-110) mg/dL Calcium 8.2 L (8.4-10.2) mg/dL Assessment and Plan Plan: Acute on chronic hypoxemic respiratory failure secondary to an exacerbation of COPD. patient used to bronchospastic and wheezy and short of breath Chronic hypoxic /hypercapnic respiratory failure. The patient is maintained on 2 L of oxygen during rest on outpatient basis in addition to 4 L with activity. History of chronic obstructive pulmonary disease, oxygen dependent, and severe. History of 50 years of chronic tobacco dependence, however quit in 2014. Atrial fibrillation/flutter Acute exacerbation of diastolic congestive heart failure. The patient is a preserved LV function with an ejection fraction of 55% Recent hospitalization in [place], [place]. Obesity. Rheumatoid arthritis maintained on Plaquenil and outpatient basis Severe metabolic alkalosis Increased lower extremity edema maintain on oral Lasix 40 mg by mouth daily. The patient will be switched IV Lasix. Plan: Continue bronchodilators Continue IV Solu-Medrol Start the patient on Lasix 40 mg IV every 12 hours Start the patient Diamox 500 mg every 12 hours Monitor electrolytes including the serum bicarb Continue anti-coagulation with Eliquis 5 mg by mouth twice a day Cardiogram was noted and the patient has normal LV function without any significant pulmonary hypertension Continue using BiPAP overnight at a pressure of 12/6 with an FiO2 of 40%, intermittently during the day We'll continue to follow
[2022-05-25 20:35] LABS: Glucose,Whole Blood 279 mg/dL (70-110)
[2022-05-25] MEDS: CALCIUM CARBONATE 500 MG CHEWABLE PO PRN (22:28)
--- NOTE | 2022-05-26 05:26 | P.PN ---
Subjective Progress Note Date: 05/25/22 Acute COPD exacerbation Acute diastolic CHF with ejection fraction 55% Acute on chronic hypoxemic respiratory failure 72-year-old lady with past medical history significant for chronic hypoxic respiratory failure, COPD, history of tobacco addiction who presented to the ER because of worsening shortness of breath. Patient was recently admitted in the hospital in [place] for COPD exacerbation and was discharged and was visiting her daughter here. Patient was using oxygen at home, normally 2 L at rest at 4 L on exertion but stated that yesterday she felt that her oxygen was not working for her. Patient was getting short of breath on exertion, also complaining of cough. Denied any chest pain. There was no complain of orthopnea or PND. Denies any swelling of feet. Patient was worked up in the ER, initial lab work showed patient to have a white count of 5.4, hemoglobin 11.2, platelet count of 278, sodium 142 potassium 5.3, bicarbonate 41, covid was negative, chest x-ray was negative for pneumonia. Patient was admitted to hospitalist service 05/18/2012 Patient breathing pattern is improving and currently she is on [address] oxygen via nasal cannula She has occult blood positive in his stool but d-dimer is negative. Sputum culture is pending Chest x-ray showed CHF Ejection fraction 55% She's on doxycycline, IV Solu-Medrol, IV Lasix 40 mg daily also as oral Cardizem 240 mg per cartridge feeder in line Protonix and its and we'll check iron studies 05/23/2022 Patient is seen and evaluated sitting up in bedside chair; no specific compla ints reported Continues to saturate well 93%; She does use BiPAP intermittently, with settings of 12/6 and 40%. Her cough is better. She remains on 5 L of oxygen. We'll hoping for discharge, early next week. The patient is minimally improved. No new labs today other than a glucose of 286. Patient remains on albuterol sulfate, ipratropium bromide, Solu-Medrol, and Tessalon Perles for her cough. She has refused Symbicort. 05/24/2022 Patient is seen and evaluated in room at bedside; The patient is currently on 5 L of oxygen. She uses the BiPAP intermittently, and mostly at nighttime. Currently, the patient's doing about the same to slightly better. Still very short of breath, and bronchospastic. Labs include glucose of 232, CBC reveals a did receive 17.9 which is marked elevation from 10.6 on 05/22/2022, patient is currently on IV steroids, sodium 137, potassium 4.0, BUN/creatinine of 47/0.79 The patient is not producing any phlegm when she coughs. No fever or chills. No chest pain or chest discomfort. Patient remains on Tessalon, albuterol sulfate, and ipratropium bromide, and Solu-Medrol. The patient refused the Symbicort. Patient has been placed back on home dose of Eliquis and hemoglobin is being monitored closely 05/25/2022 Patient is seen and evaluated and follow-up currently sitting up in the chair with cardiology and pulmonary following closely. Patient is continued on IV steroids along with DuoNeb treatments. Patient is oxygen dependent and using BiPAP intermittently 3. Patient continues to have lower extremity edema and being transitioned IV Lasix. Current kidney functions are stable. White blood count remains elevated possibly a component of steroid-induced although patient reports having increased thick green sputum and will submit another sputum culture. Chest x-ray ordered. Patient denies chest pain or palpitations. Patient continues to report shortness of breath. Patient denies nausea or vomiting and tolerating diet. Encouraged oral intake and increased activity as tolerated. Recommend Hever wraps to lower extremities or compression stockings. Elevate lower extremity swelling rest Review of systems: Constitutional: No reports of fatigue, fever, or chills Cardiovascular: No reports of chest pain or palpitations Respiratory: No reports of worsening shortness of breath, reports cough and thick green sputum GI: No reports of nausea, vomiting, or diarrhea : No reports of dysuria or retention Neurovascular: reports of generalized weakness All medications have been reviewed Active Medications Acetaminophen (Acetaminophen Tab 325 Mg Tab) 650 mg PO Q6HR PRN PRN Reason: Fever and/ or Pain Last Admin: 05/18/22 17:02 Dose: 650 mg Hydrocodone Bitart/Acetaminophen (Hydrocodone/Apap 5-325mg 1 Each Tab) 1 each PO BID PRN PRN Reason: Pain Last Admin: 05/25/22 09:59 Dose: 1 each Acetazolamide Sodium (Acetazolamide Sodium 500 Mg Vial) 500 mg IV Q12HR [facility]O Last Admin: 05/25/22 12:08 Dose: 500 mg Albuterol/Ipratropium (Ipratropium-Albuterol 3 Ml Neb) 3 ml INHALATION RT-Q2H PRN PRN Reason: Shortness Of Breath Or Wheezing Last Admin: 05/24/22 03:16 Dose: 3 ml Albuterol/Ipratropium (Ipratropium-Albuterol 3 Ml Neb) 3 ml INHALATION RT-QID [facility] Last Admin: 05/25/22 12:28 Dose: 3 ml Apixaban (Apixaban 5 Mg Tab) 5 mg PO BID [facility]; Protocol Last Admin: 05/25/22 09:56 Dose: 5 mg Benzonatate (Benzonatate 100 Mg Cap) 200 mg PO TID [facility] Last Admin: 05/25/22 09:56 Dose: 200 mg Buspirone HCl (Buspirone Hcl 5 Mg Tab) 7.5 mg PO BID [facility] Last Admin: 05/25/22 09:56 Dose: 7.5 mg Calcium Carbonate/Glycine (Calcium Carbonate 500 Mg Chewable) 500 mg PO QID PRN PRN Reason: Heartburn Last Admin: 05/23/22 20:01 Dose: 500 mg Dextrose/Water (Dextrose 50% Syringe 50 Ml) 25 ml IVP PER PROTOCOL PRN; Protocol PRN Reason: Hypoglycemia Dextrose/Water (Dextrose 50% Syringe 50 Ml) 50 ml IVP PER PROTOCOL PRN; Protocol PRN Reason: Hypoglycemia Diltiazem HCl (Diltiazem Cd 240 Mg Cap.Er.24h) 240 mg PO DAILY [facility] Last Admin: 05/25/22 09:56 Dose: 240 mg Fluticasone Propionate (Fluticasone 50mcg/[place] Nasal 16gm) 1 spray EA NOSTRIL DAILY [facility] Last Admin: 05/25/22 09:57 Dose: 1 spray Fluticasone Propionate (Fluticasone 50mcg/[place] Nasal 16gm) 2 spray EA NOSTRIL DAILY PRN PRN Reason: Allergy Symptoms Last Admin: 05/20/22 21:23 Dose: 2 spray Furosemide (Furosemide 10 Mg/Ml 4 Ml Vial) 40 mg IV Q12HR [facility] Last Admin: 05/25/22 12:06 Dose: 40 mg Guaifenesin (Guaifenesin 600 Mg Tablet.Er) 600 mg PO Q12HR [facility] Last Admin: 05/25/22 12:07 Dose: 600 mg Ceftriaxone Sodium 2 gm/ (Sodium Chloride) 50 mls @ 100 mls/hr IVPB Q24HR [facility]; Protocol Last Admin: 05/25/22 12:05 Dose: 100 mls/hr Insulin Aspart (Insulin Aspart (Novolog) 100 Unit/Ml Vial) 0 unit SQ ACHS [facility]; Protocol Last Admin: 05/25/22 12:07 Dose: 4 unit Losartan Potassium (Losartan 50 Mg Tab) 50 mg PO DAILY [facility] Last Admin: 05/25/22 09:55 Dose: 50 mg Methylprednisolone Sodium Succinate (Methylprednisolone Sod Succi 125 Mg/2 Ml Vial) 60 mg IV Q6HR [facility] Last Admin: 05/25/22 12:07 Dose: 60 mg Naloxone HCl (Naloxone 0.4 Mg/Ml 1 Ml Vial) 0.2 mg IVP Q2M PRN PRN Reason: Opioid Reversal Nystatin (Nystatin 100,000 Unit/Ml Susp 500,000 Unit/5 Ml Cup) 500,000 unit PO QID [facility]; Protocol Last Admin: 05/25/22 12:06 Dose: 500,000 unit Pantoprazole Sodium (Pantoprazole 40 Mg/10 Ml Vial) 40 mg IVP DAILY [facility] Last Admin: 05/25/22 09:56 Dose: 40 mg Physical exam: GENERAL: The patient is alert and oriented x3, not in any acute distress. Well developed, well nourished. HEENT: Pupils are round and equally reacting to light. EOMI. No scleral icterus. No conjunctival pallor. Normocephalic, atraumatic. No pharyngeal erythema. No thyromegaly. CARDIOVASCULAR: S1 and S2 present. No murmurs, rubs, or gallops. -PULMONARY: Chest is clear to auscultation, bilateral scattered wheezing. ABDOMEN: Soft, nontender, nondistended, normoactive bowel sounds. No palpable organomegaly. MUSCULOSKELETAL: No joint swelling or deformity. EXTREMITIES: No cyanosis, clubbing, or pedal edema. NEUROLOGICAL: Gross neurological examination did not reveal any focal deficits. SKIN: No rashes. no petechiae. Assessment: Acute COPD exacerbation Acute diastolic CHF with ejection fraction 55% Acute on chronic hypoxemic respiratory failure secondary to COPD exacerbation. Chronic atrial fibrillation Hyperkalemia, improved History of tobacco addiction DVT prophylaxis: eliquis GI Prophylaxis: Ppi Full code with no CPR Plan: Continue with IV Solu-Medrol and antibiotics being added in the form of ceftriaxone as patient is having thick green sputum Patient was continued on by mouth Lasix and being switched to IV Lasix as lower extremities continue to be edematous. Patient encouraged to elevate lower extremities while at rest and may use Hever wraps from the toes up to the knees or compression stockings Pulmonary following and patient is maintained on DuoNeb along with steroids and will continue. Follow-up chest x-ray suggestive of atelectasis with incentive spirometer Continue with Eliquis 5 mg and monitor hemoglobin Patient did have positive vocal blood test and discussed with surgery team for possible colonoscopy although patient and family are refusing at this time White blood count remains elevated possibly secondary to steroid-induced and will follow-up with repeat labs and monitor closely. Patient is afebrile. Due to multiple complex medical issues, prognosis is guarded The impression and plan of care has been dictated by Chantell Swartz, Nurse Practitioner as directed. Dr. Jose MD I have performed a history and examination and MDM of this patient, discussed the same with the dictator, and agree with the dictator's assessment and plan as written ,documented as a scribe. Based on total visit time, I have performed more than 50% of the visit. Objective - Vital Signs Vital signs: Vital Signs Temp 98.0 F 05/24/22 16:00 Pulse 105 H 05/25/22 09:33 Resp 24 05/25/22 04:00 BP 160/98 05/25/22 04:00 Pulse Ox 94 L 05/25/22 09:38 FiO2 40 05/23/22 16:12 Intake & Output 05/24/22 05/25/22 05/25/22 18:59 06:59 18:59 Intake Total 358 Output Total 600 Balance -242 Intake: Oral 358 Output: Urine 600 Other: Voiding Method Toilet Toilet # Voids 1 2 - Labs CBC & Chem 7: 05/25/22 07:00 05/25/22 07:00 Labs: Abnormal Lab Results - Last 24 Hours (Table) 05/24/22 05/24/22 05/24/22 Range/Units 11:35 12:31 12:31 WBC 17.9 H (3.8-10.6) k/uL MCHC 29.9 L (31.0-37.0) g/dL Neutrophils # (1.3-7.7) k/uL Neutrophils # (Manual) 15.57 H (1.3-7.7) k/uL Lymphocytes # (1.0-4.8) k/uL Lymphocytes # (Manual) 0.54 L (1.0-4.8) k/uL Monocytes # (Manual) 1.79 H (0-1.0) k/uL Metamyelocytes # (Man) 0.18 H (0) k/uL Chloride 77 L (98-107) mmol/L Carbon Dioxide 61 H* (22-30) mmol/L BUN 47 H (7-17) mg/dL Creatinine (0.52-1.04) mg/dL Glucose 133 H (74-99) mg/dL POC Glucose (mg/dL) 173 H (70-110) mg/dL Calcium (8.4-10.2) mg/dL 05/24/22 05/24/22 05/25/22 Range/Units 16:35 20:36 06:09 WBC (3.8-10.6) k/uL MCHC (31.0-37.0) g/dL Neutrophils # (1.3-7.7) k/uL Neutrophils # (Manual) (1.3-7.7) k/uL Lymphocytes # (1.0-4.8) k/uL Lymphocytes # (Manual) (1.0-4.8) k/uL Monocytes # (Manual) (0-1.0) k/uL Metamyelocytes # (Man) (0) k/uL Chloride (98-107) mmol/L Carbon Dioxide (22-30) mmol/L BUN (7-17) mg/dL Creatinine (0.52-1.04) mg/dL Glucose (74-99) mg/dL POC Glucose (mg/dL) 160 H 295 H 167 H (70-110) mg/dL Calcium (8.4-10.2) mg/dL 05/25/22 05/25/22 Range/Units 07:00 07:00 WBC 21.4 H (3.8-10.6) k/uL MCHC (31.0-37.0) g/dL Neutrophils # 20.2 H (1.3-7.7) k/uL Neutrophils # (Manual) (1.3-7.7) k/uL Lymphocytes # 0.3 L (1.0-4.8) k/uL Lymphocytes # (Manual) (1.0-4.8) k/uL Monocytes # (Manual) (0-1.0) k/uL Metamyelocytes # (Man) (0) k/uL Chloride 79 L (98-107) mmol/L Carbon Dioxide 56 H* (22-30) mmol/L BUN 42 H (7-17) mg/dL Creatinine 0.51 L (0.52-1.04) mg/dL Glucose 144 H (74-99) mg/dL POC Glucose (mg/dL) (70-110) mg/dL Calcium 8.2 L (8.4-10.2) mg/dL
[2022-05-26 05:52] LABS: Glucose,Whole Blood 290 mg/dL (70-110)
[2022-05-26] MEDS: INSULIN ASPART (NovoLOG) 100 UNIT/ML VIAL SQ SCH ×4 (06:09→21:08)
[2022-05-26] MEDS: methylPREDNISolone SOD SUCCI 125 MG/2 ML VIAL IV SCH ×2 (06:09)
[2022-05-26] MEDS: busPIRone HCl 5 MG TAB PO SCH ×2 (09:32→21:18)
[2022-05-26] MEDS: PANTOPRAZOLE 40 MG/10 ML VIAL IVP SCH (09:33)
[2022-05-26] MEDS: LOSARTAN 50 MG TAB PO SCH (09:33)
[2022-05-26] MEDS: APIXABAN 5 MG TAB PO SCH ×2 (09:33→21:18)
[2022-05-26] MEDS: FUROSEMIDE 10 MG/ML 4 ML VIAL IV SCH (09:33)
[2022-05-26] MEDS: BENZONATATE 100 MG CAP PO SCH ×3 (09:33→21:17)
[2022-05-26] MEDS: guaiFENesin 600 MG TABLET.ER PO SCH ×2 (09:34→21:18)
[2022-05-26] MEDS: DILTIAZEM CD 240 MG CAP.ER.24H PO SCH (09:34)
[2022-05-26] MEDS: FLUTICASONE 50MCG/SPRAY NASAL 16GM EA NOSTRIL SCH (09:37)
[2022-05-26] MEDS: IPRATROPIUM-ALBUTEROL 3 ML NEB INHALATION SCH ×4 (09:50→20:12)
[2022-05-26 10:53] LABS: Basophils # (A) 0.1 k/uL (0-0.2); Basophils % (A) 0 %; Eosinophils % (A) 0 %; HCT 41.4 % (34.0-46.0); Hypochromasia Marked; Lymphocytes # (A) 0.4 k/uL (1.0-4.8); Lymphocytes % (A) 2 %; MCH 28.4 pg (25.0-35.0); MCHC 29.1 g/dL (31.0-37.0); Mean Platelet Volume 9.7; Monocytes # (A) 0.6 k/uL (0-1.0); Monocytes % (A) 3 %; Neutrophils # (A) 18.4 k/uL (1.3-7.7); Neutrophils % (A) 94 %; Platelet Count 274 k/uL (150-450); RBC 4.24 m/uL (3.80-5.40); RDW 12.6 % (11.5-15.5); WBC 19.5 k/uL (3.8-10.6)
[2022-05-26 11:02] LABS: MCV 97.5 fL (80.0-100.0)
[2022-05-26 11:24] LABS: Calcium 8.3 mg/dL (8.4-10.2)
[2022-05-26 11:36] LABS: Glucose,Whole Blood 201 mg/dL (70-110)
[2022-05-26] MEDS: NYSTATIN 100,000 UNIT/ML SUSP 500,000 UNIT/5 ML CUP PO SCH ×2 (12:15→16:58)
--- NOTE | 2022-05-26 14:26 | P.PN ---
Subjective Progress Note Date: 05/26/22 On 05/25/2022, the patient is being seen for a follow-up. This patient has advanced COPD and she is oxygen dependent. The patient presented to us with an acute COPD exacerbation. The patient remains on bronchodilators and steroids. Continues to have significant amount of edema lower extremity bilaterally. The WBC count is at 21.4 with a hemoglobin of 12 and a platelet count of 178. Sodium level is at 137 with a serum bicarb of 6 with a potassium level of 4.8. BUN is at 42 with a creatinine of 0.5. Calcium is level at 8.2. The patient remains on DuoNeb about treatments [id number]. The patient is on IV Solu- Medrol 60 mg every 6 hours. Remains spastic and wheezy. Remains on diuretic antibiotic coverage with IV Rocephin. 05/28/2022, the patient is being seen for a follow-up. The patient is currently on Diamox and Lasix. She is on Lasix 40 mg IV every 12 hours and she is also on Diamox 500 mg every 12 hours. The fluid balance is negative and the patient's blood work from today shows a serum bicarb of 54 which is still elevated although slightly improved compared to yesterday and the day before. Sodium level is at 137. Potassium level is at 3 and a potassium level is being replaced. The risks thousand 19.7 with a hemoglobin of 12.0. Platelet count is 274. She remains on IV Solu-Medrol. She is also on bronchodilators around the clock. No chest pain. No altered mentation. No signs of any CO2 narcosis. Objective - Vital Signs Vital signs: Vital Signs Temp 97.8 F 05/26/22 12:22 Pulse 74 05/26/22 13:33 Resp 16 05/26/22 12:22 BP 124/67 05/26/22 12:22 Pulse Ox 95 05/26/22 12: FiO2 40 05/26/22 00:15 Intake & Output 05/25/22 05/26/22 05/26/22 18:59 06:59 18:59 Intake Total 354 Output Total 1200 Balance 354 -1200 Weight 63.3 kg Intake: Oral 354 Output: Urine 1200 Other: Voiding Method Toilet Bedside Commode Bedside Commode # Voids 2 # Bowel Movements 1 - Exam No acute distress, oriented 3. Obese white female, currently on 5 L. No respiratory distress. No conversational dyspnea. Saturations are 94 %. HEENT examination is grossly unremarkable. Neck supple. Full range of motion. No adenopathy thyromegaly or neck vein di stention. Cardiovascular examination reveals regular rhythm rate. S1-S2 normal. No S3 or S4. No discernible murmur noted. Heart sounds are distant. Lungs reveal scattered expiratory wheezes and rhonchi. Breath sounds are equal bilaterally but diminished throughout. No crackles. Breath sounds equal. Abdomen soft bowel sounds are heard. No masses or tenderness. Extremities are intact. No cyanosis clubbing or edema. Skin is without rash or lesion. Neurologic examination is brief but nonfocal. - Labs CBC & Chem 7: 05/26/22 10:25 05/26/22 10:25 Labs: Abnormal Lab Results - Last 24 Hours (Table) 05/25/22 05/25/22 05/26/22 Range/Units 16:31 20:33 05:51 WBC (3.8-10.6) k/uL MCHC (31.0-37.0) g/dL Neutrophils # (1.3-7.7) k/uL Lymphocytes # (1.0-4.8) k/uL Potassium (3.5-5.1) mmol/L Chloride (98-107) mmol/L Carbon Dioxide (22-30) mmol/L BUN (7-17) mg/dL Glucose (74-99) mg/dL POC Glucose (mg/dL) 163 H 279 H 290 H (70-110) mg/dL Calcium (8.4-10.2) mg/dL 05/26/22 05/26/22 05/26/22 Range/Units 10:25 10:25 11:35 WBC 19.5 H (3.8-10.6) k/uL MCHC 29.1 L (31.0-37.0) g/dL Neutrophils # 18.4 H (1.3-7.7) k/uL Lymphocytes # 0.4 L (1.0-4.8) k/uL Potassium 3.0 L (3.5-5.1) mmol/L Chloride 79 L (98-107) mmol/L Carbon Dioxide 54 H* (22-30) mmol/L BUN 38 H (7-17) mg/dL Glucose 131 H (74-99) mg/dL POC Glucose (mg/dL) 201 H (70-110) mg/dL Calcium 8.3 L (8.4-10.2) mg/dL Microbiology - Last 24 Hours (Table) 05/25/22 13:53 Gram Stain - Preliminary Sputum Sputum Culture - Preliminary Assessment and Plan Plan: Acute on chronic hypoxemic respiratory failure secondary to an exacerbation of COPD. patient used to bronchospastic and wheezy and short of breath, improving slowly Chronic hypoxic /hypercapnic respiratory failure. The patient is maintained on 2 L of oxygen during rest on outpatient basis in addition to 4 L with activity. History of chronic obstructive pulmonary disease, oxygen dependent, and severe. History of 50 years of chronic tobacco dependence, however quit in 2014. Atrial fibrillation/flutter Acute exacerbation of diastolic congestive heart failure. The patient is a preserved LV function with an ejection fraction of 55% Recent hospitalization in [place], [place]. Obesity. Rheumatoid arthritis maintained on Plaquenil and outpatient basis Severe metabolic alkalosis, serum bicarb is improving while being on Diamox Increased lower extremity edema maintain on oral Lasix 40 mg by mouth daily. The patient will be switched IV Lasix. The patient is currently on IV Lasix and IV Diamox Plan: Continue bronchodilators Stop the IV Solu-Medrol put the patient prednisone burst taper Continue the patient on Lasix 40 mg IV every 24 hours Continue Diamox 500 mg every 12 hours Monitor electrolytes including the serum bicarb, level is improving Continue anti-coagulation with Eliquis 5 mg by mouth twice a day Cardiogram was noted and the patient has normal LV function without any significant pulmonary hypertension Continue using BiPAP overnight at a pressure of 12/6 with an FiO2 of 40%, intermittently during the day We'll continue to follow
[2022-05-26 16:31] LABS: Glucose,Whole Blood 380 mg/dL (70-110)
[2022-05-26] MEDS ORDERED: POTASSIUM CHLORIDE ER 20 MEQ TAB.ER PO STA (16:52)
--- NOTE | 2022-05-26 17:07 | P.PN ---
Subjective Progress Note Date: 05/26/22 Acute COPD exacerbation Acute diastolic CHF with ejection fraction 55% Acute on chronic hypoxemic respiratory failure 72-year-old lady with past medical history significant for chronic hypoxic respiratory failure, COPD, history of tobacco addiction who presented to the ER because of worsening shortness of breath. Patient was recently admitted in the hospital in [place] for COPD exacerbation and was discharged and was visiting her daughter here. Patient was using oxygen at home, normally 2 L at rest at 4 L on exertion but stated that yesterday she felt that her oxygen was not working for her. Patient was getting short of breath on exertion, also complaining of cough. Denied any chest pain. There was no complain of orthopnea or PND. Denies any swelling of feet. Patient was worked up in the ER, initial lab work showed patient to have a white count of 5.4, hemoglobin 11.2, platelet count of 278, sodium 142 potassium 5.3, bicarbonate 41, covid was negative, chest x-ray was negative for pneumonia. Patient was admitted to hospitalist service 05/18/2012 Patient breathing pattern is improving and currently she is on [address] oxygen via nasal cannula She has occult blood positive in his stool but d-dimer is negative. Sputum culture is pending Chest x-ray showed CHF Ejection fraction 55% She's on doxycycline, IV Solu-Medrol, IV Lasix 40 mg daily also as oral Cardizem 240 mg per cost engineer in line Protonix and its and we'll check iron studies 05/23/2022 Patient is seen and evaluated sitting up in bedside chair; no specific compla ints reported Continues to saturate well 93%; She does use BiPAP intermittently, with settings of 12/6 and 40%. Her cough is better. She remains on 5 L of oxygen. We'll hoping for discharge, early next week. The patient is minimally improved. No new labs today other than a glucose of 286. Patient remains on albuterol sulfate, ipratropium bromide, Solu-Medrol, and Tessalon Perles for her cough. She has refused Symbicort. 05/24/2022 Patient is seen and evaluated in room at bedside; The patient is currently on 5 L of oxygen. She uses the BiPAP intermittently, and mostly at nighttime. Currently, the patient's doing about the same to slightly better. Still very short of breath, and bronchospastic. Labs include glucose of 232, CBC reveals a did receive 17.9 which is marked elevation from 10.6 on 05/22/2022, patient is currently on IV steroids, sodium 137, potassium 4.0, BUN/creatinine of 47/0.79 The patient is not producing any phlegm when she coughs. No fever or chills. No chest pain or chest discomfort. Patient remains on Tessalon, albuterol sulfate, and ipratropium bromide, and Solu-Medrol. The patient refused the Symbicort. Patient has been placed back on home dose of Eliquis and hemoglobin is being monitored closely 05/25/2022 Patient is seen and evaluated and follow-up currently sitting up in the chair with cardiology and pulmonary following closely. Patient is continued on IV steroids along with DuoNeb treatments. Patient is oxygen dependent and using BiPAP intermittently 3. Patient continues to have lower extremity edema and being transitioned IV Lasix. Current kidney functions are stable. White blood count remains elevated possibly a component of steroid-induced although patient reports having increased thick green sputum and will submit another sputum culture. Chest x-ray ordered. Patient denies chest pain or palpitations. Patient continues to report shortness of breath. Patient denies nausea or vomiting and tolerating diet. Encouraged oral intake and increased activity as tolerated. Recommend Hever wraps to lower extremities or compression stockings. Elevate lower extremity swelling rest 05/26/2022 Patient being closely followed by pulmonary along with cardiology and maintained on IV steroids along with DuoNeb treatments. Patient also started on ceftriaxone yesterday as patient was reporting increased sputum production that is green and preliminary sputum culture repeat showing gram-negative bacilli. We'll continue ceftriaxone while awaiting for cultures to finalized. Patient reports to breathing slightly better and currently maintained on 4 L via nasal cannula. Patient chronically wears oxygen in the outpatient setting and per case management arrangements being made in the outpatient setting for a BiPAP in the home. Patient with significant weakness in lower leg lower extremity edema has been started on IV Lasix and will continue with follow-up labs. Potassium low at 3.0 and will replace per protocol. WBC is elevated at 19.5 although patient is afebrile possibly a component of steroid-induced. Will follow-up with repeat labs and continue to monitor the patient closely. She also being transitioned to oral prednisone per pulmonary recommendations. Patient denies worsening shortness of breath or chest pain. Patient reports to feeling slightly improved each day and anxious to be going home. Prognosis is guarded. Review of systems: Constitutional: No reports of fatigue, fever, or chills Cardiovascular: No reports of chest pain or palpitations Respiratory: No reports of worsening shortness of breath, reports cough and thick green sputum GI: No reports of nausea, vomiting, or diarrhea : No reports of dysuria or retention Neurovascular: reports of generalized weakness All medications have been reviewed Active Medications Acetaminophen (Acetaminophen Tab 325 Mg Tab) 650 mg PO Q6HR PRN PRN Reason: Fever and/ or Pain Last Admin: 05/18/22 17:02 Dose: 650 mg Hydrocodone Bitart/Acetaminophen (Hydrocodone/Apap 5-325mg 1 Each Tab) 1 each PO BID PRN PRN Reason: Pain Last Admin: 05/25/22 23:59 Dose: 1 each Acetazolamide Sodium (Acetazolamide Sodium 500 Mg Vial) 500 mg IV Q12HR [facility] Last Admin: 05/26/22 09:33 Dose: 500 mg Albuterol/Ipratropium (Ipratropium-Albuterol 3 Ml Neb) 3 ml INHALATION RT-Q2H PRN PRN Reason: Shortness Of Breath Or Wheezing Last Admin: 05/24/22 03:16 Dose: 3 ml Albuterol/Ipratropium (Ipratropium-Albuterol 3 Ml Neb) 3 ml INHALATION RT-QID [facility] Last Admin: 05/26/22 16:50 Dose: 3 ml Apixaban (Apixaban 5 Mg Tab) 5 mg PO BID [facility]; Protocol Last Admin: 05/26/22 09:33 Dose: 5 mg Benzonatate (Benzonatate 100 Mg Cap) 200 mg PO TID [facility] Last Admin: 05/26/22 16:58 Dose: 200 mg Buspirone HCl (Buspirone Hcl 5 Mg Tab) 7.5 mg PO BID [facility] Last Admin: 05/26/22 09:32 Dose: 7.5 mg Calcium Carbonate/Glycine (Calcium Carbonate 500 Mg Chewable) 500 mg PO QID PRN PRN Reason: Heartburn Last Admin: 05/25/22 22:28 Dose: 500 mg Dextrose/Water (Dextrose 50% Syringe 50 Ml) 25 ml IVP PER PROTOCOL PRN; Protocol PRN Reason: Hypoglycemia Dextrose/Water (Dextrose 50% Syringe 50 Ml) 50 ml IVP PER PROTOCOL PRN; Protocol PRN Reason: Hypoglycemia Diltiazem HCl (Diltiazem Cd 240 Mg Cap.Er.24h) 240 mg PO DAILY [facility] Last Admin: 05/26/22 09:34 Dose: 240 mg Fluticasone Propionate (Fluticasone 50mcg/[place] Nasal 16gm) 1 spray EA NOSTRIL DAILY [facility] Last Admin: 05/26/22 09:37 Dose: 1 spray Fluticasone Propionate (Fluticasone 50mcg/[place] Nasal 16gm) 2 spray EA NOSTRIL DAILY PRN PRN Reason: Allergy Symptoms Last Admin: 05/20/22 21:23 Dose: 2 spray Furosemide (Furosemide 10 Mg/Ml 4 Ml Vial) 40 mg IV DAILY [facility] Guaifenesin (Guaifenesin 600 Mg Tablet.Er) 600 mg PO Q12HR [facility] Last Admin: 05/26/22 09:34 Dose: 600 mg Ceftriaxone Sodium 2 gm/ (Sodium Chloride) 50 mls @ 100 mls/hr IVPB Q24HR [facility]; Protocol Last Admin: 05/26/22 12:15 Dose: 100 mls/hr Insulin Aspart (Insulin Aspart (Novolog) 100 Unit/Ml Vial) 0 unit SQ ACHS [facility]; Protocol Last Admin: 05/26/22 16:58 Dose: 5 unit Losartan Potassium (Losartan 50 Mg Tab) 50 mg PO DAILY [facility] Last Admin: 05/26/22 09:33 Dose: 50 mg Naloxone HCl (Naloxone 0.4 Mg/Ml 1 Ml Vial) 0.2 mg IVP Q2M PRN PRN Reason: Opioid Reversal Nystatin (Nystatin 100,000 Unit/Ml Susp 500,000 Unit/5 Ml Cup) 500,000 unit PO QID [facility]; Protocol Last Admin: 05/26/22 16:58 Dose: 500,000 unit Pantoprazole Sodium (Pantoprazole 40 Mg/10 Ml Vial) 40 mg IVP DAILY [facility] Last Admin: 05/26/22 09:33 Dose: 40 mg Prednisone (Prednisone 20 Mg Tab) 40 mg PO DAILY [facility] Physical exam: GENERAL: The patient is alert and oriented x3, not in any acute distress. Well developed, well nourished. HEENT: Pupils are round and equally reacting to light. EOMI. No scleral icterus. No conjunctival pallor. Normocephalic, atraumatic. No pharyngeal erythema. No thyromegaly. CARDIOVASCULAR: S1 and S2 present. No murmurs, rubs, or gallops. -PULMONARY: Chest is clear to auscultation, bilateral scattered wheezing. ABDOMEN: Soft, nontender, nondistended, normoactive bowel sounds. No palpable organomegaly. MUSCULOSKELETAL: No joint swelling or deformity. EXTREMITIES: No cyanosis, clubbing, or pedal edema. Bilateral Lower extremity edema noted NEUROLOGICAL: Gross neurological examination did not reveal any focal deficits. SKIN: No rashes. no petechiae. Assessment: Acute COPD exacerbation Acute diastolic CHF with ejection fraction 55% Hypokalemia, most likely secondary to diuretics Acute on chronic hypoxemic respiratory failure secondary to COPD exacerbation. Chronic atrial fibrillation Hyperkalemia, resolved History of tobacco addiction DVT prophylaxis: eliquis GI Prophylaxis: Ppi Full code with no CPR Plan: Continue with current medications and consultations following. Patient is being transitioned oral prednisone and antibiotics have been added in the form of ceftriaxone as patient is having thick green sputum, preliminary repeat sputum culture showing gram-negative bacilli and will await finalized cultures. Patient recently switched to IV Lasix as lower extremities continue to be edematous. Patient encouraged to elevate lower extremities while at rest and may use Hever wraps from the toes up to the knees or compression stockings Pulmonary following and patient is maintained on DuoNeb along with oral steroids and will continue. Encouraged incentive spirometer use at least 10 times every hour while awake. Per case management family is arranging for outpatient BiPAP to be delivered to the home once patient is discharged Continue with Eliquis 5 mg and monitor hemoglobin Patient did have positive fecal occult blood test and discussed with surgery team for possible colonoscopy although patient and family are refusing at this time White blood count remains elevated possibly secondary to steroid-induced and will follow-up with repeat labs and monitor closely. Patient is afebrile. Due to multiple complex medical issues, prognosis is guarded The impression and plan of care has been dictated by Chantell Swartz, Nurse Practitioner as directed. Dr. Jose MD I have performed a history and examination and MDM of this patient, discussed the same with the dictator, and agree with the dictator's assessment and plan as written ,documented as a scribe. Based on total visit time, I have performed more than 50% of the visit. Objective - Vital Signs Vital signs: Vital Signs Temp 97.8 F 05/26/22 12: Pulse 88 05/26/22 16:51 Resp 16 05/26/22 12:22 BP 124/67 05/26/22 12:22 Pulse Ox 95 05/26/22 12: FiO2 40 05/26/22 00:15 Intake & Output 05/25/22 05/26/22 05/26/22 18:59 06:59 18:59 Intake Total 354 240 Output Total 1200 300 Balance 354 -1200 -60 Weight 63.3 kg Intake: Oral 354 240 Output: Urine 1200 300 Other: Voiding Method Toilet Bedside Commode Bedside Commode # Voids 2 # Bowel Movements 1 - Labs CBC & Chem 7: 05/26/22 10:25 05/26/22 10:25 Labs: Abnormal Lab Results - Last 24 Hours (Table) 05/25/22 05/26/22 05/26/22 Range/Units 20:33 05:51 10:25 WBC 19.5 H (3.8-10.6) k/uL MCHC 29.1 L (31.0-37.0) g/dL Neutrophils # 18.4 H (1.3-7.7) k/uL Lymphocytes # 0.4 L (1.0-4.8) k/uL Potassium (3.5-5.1) mmol/L Chloride (98-107) mmol/L Carbon Dioxide (22-30) mmol/L BUN (7-17) mg/dL Glucose (74-99) mg/dL POC Glucose (mg/dL) 279 H 290 H (70-110) mg/dL Calcium (8.4-10.2) mg/dL 05/26/22 05/26/22 05/26/22 Range/Units 10:25 11:35 16:30 WBC (3.8-10.6) k/uL MCHC (31.0-37.0) g/dL Neutrophils # (1.3-7.7) k/uL Lymphocytes # (1.0-4.8) k/uL Potassium 3.0 L (3.5-5.1) mmol/L Chloride 79 L (98-107) mmol/L Carbon Dioxide 54 H* (22-30) mmol/L BUN 38 H (7-17) mg/dL Glucose 131 H (74-99) mg/dL POC Glucose (mg/dL) 201 H 380 H (70-110) mg/dL Calcium 8.3 L (8.4-10.2) mg/dL Microbiology - Last 24 Hours (Table) 05/25/22 13:53 Gram Stain - Preliminary Sputum Sputum Culture - Preliminary Gram Neg Bacilli
[2022-05-26 20:14] LABS: Glucose,Whole Blood 88 mg/dL (70-110)
[2022-05-26] MEDS: HYDROcodone/APAP 5-325MG 1 EACH TAB PO PRN (21:17)
[2022-05-27] MEDS: NYSTATIN 100,000 UNIT/ML SUSP 500,000 UNIT/5 ML CUP PO SCH ×5 (00:11→20:40)
[2022-05-27] MEDS: IPRATROPIUM-ALBUTEROL 3 ML NEB INHALATION PRN ×2 (00:37→03:52)
[2022-05-27 06:40] LABS: Glucose,Whole Blood 174 mg/dL (70-110)
[2022-05-27] MEDS: INSULIN ASPART (NovoLOG) 100 UNIT/ML VIAL SQ SCH ×4 (06:43→20:39)
[2022-05-27 07:48] LABS: HCT 35.2 % (34.0-46.0); HGB 10.8 gm/dL (11.4-16.0); Hypochromasia Marked; MCH 28.9 pg (25.0-35.0); MCHC 30.9 g/dL (31.0-37.0); MCV 93.7 fL (80.0-100.0); Mean Platelet Volume 9.3; Platelet Count 203 k/uL (150-450); RBC 3.75 m/uL (3.80-5.40); RDW 12.9 % (11.5-15.5); WBC 17.6 k/uL (3.8-10.6)
[2022-05-27 08:16] LABS: Calcium 8.3 mg/dL (8.4-10.2); Potassium 3.1 mmol/L (3.5-5.1)
[2022-05-27] MEDS: IPRATROPIUM-ALBUTEROL 3 ML NEB INHALATION SCH ×4 (08:39→21:06)
[2022-05-27] MEDS ORDERED: Potassium Replacement Protocol 1 EACH MISC MISCELLANE PRN (09:09)
[2022-05-27] MEDS: busPIRone HCl 5 MG TAB PO SCH ×2 (09:40→20:38)
[2022-05-27] MEDS: APIXABAN 5 MG TAB PO SCH ×2 (09:40→20:38)
[2022-05-27] MEDS: LOSARTAN 50 MG TAB PO SCH (09:41)
[2022-05-27] MEDS: POTASSIUM CHLORIDE ER 20 MEQ TAB.ER PO SCH ×3 (09:41→15:11)
[2022-05-27] MEDS: guaiFENesin 600 MG TABLET.ER PO SCH ×2 (09:41→20:38)
[2022-05-27] MEDS: DILTIAZEM CD 240 MG CAP.ER.24H PO SCH (09:41)
[2022-05-27] MEDS: BENZONATATE 100 MG CAP PO SCH ×3 (09:41→20:38)
[2022-05-27] MEDS: predniSONE 20 MG TAB PO SCH (09:41)
[2022-05-27] MEDS: FLUTICASONE 50MCG/SPRAY NASAL 16GM EA NOSTRIL SCH (09:42)
[2022-05-27] MEDS: PANTOPRAZOLE 40 MG/10 ML VIAL IVP SCH (09:42)
[2022-05-27] MEDS: FUROSEMIDE 10 MG/ML 4 ML VIAL IV SCH (09:42)
[2022-05-27 11:45] LABS: Glucose,Whole Blood 162 mg/dL (70-110)
--- NOTE | 2022-05-27 15:53 | P.PN ---
Subjective Progress Note Date: 05/27/22 On 05/25/2022, the patient is being seen for a follow-up. This patient has advanced COPD and she is oxygen dependent. The patient presented to us with an acute COPD exacerbation. The patient remains on bronchodilators and steroids. Continues to have significant amount of edema lower extremity bilaterally. The WBC count is at 21.4 with a hemoglobin of 12 and a platelet count of 178. Sodium level is at 137 with a serum bicarb of 6 with a potassium level of 4.8. BUN is at 42 with a creatinine of 0.5. Calcium is level at 8.2. The patient remains on DuoNeb about treatments [id number]. The patient is on IV Solu- Medrol 60 mg every 6 hours. Remains spastic and wheezy. Remains on diuretic antibiotic coverage with IV Rocephin. 05/26/2022, the patient is being seen for a follow-up. The patient is currently on Diamox and Lasix. She is on Lasix 40 mg IV every 12 hours and she is also on Diamox 500 mg every 12 hours. The fluid balance is negative and the patient's blood work from today shows a serum bicarb of 54 which is still elevated although slightly improved compared to yesterday and the day before. Sodium level is at 137. Potassium level is at 3 and a potassium level is being replaced. The risks thousand 19.7 with a hemoglobin of 12.0. Platelet count is 274. She remains on IV Solu-Medrol. She is also on bronchodilators around the clock. No chest pain. No altered mentation. No signs of any CO2 narcosis. 05/27/2022, the patient is doing well. No new complaints. Continues to diabetes. The reason IV Lasix. Remains on Diamox. Remains on prednisone burst taper in addition to bronchodilators. Continues to have some edema lower exam is bilaterally. Serum bicarb is currently down to 50 and a sodium level is at 134. Lites echoes at 70.6 with a hemoglobin of 10.8. No altered mentation. No chest pain. No signs of any CO2 narcosis. Objective - Vital Signs Vital signs: Vital Signs Temp 97.9 F 05/27/22 15:26 Pulse 82 05/27/22 15:33 Resp 18 05/27/22 15:33 BP 120/60 05/27/22 15:26 Pulse Ox 96 05/27/22 15:26 FiO2 40 05/27/22 15:20 Intake & Output 05/26/22 05/27/22 05/27/22 18:59 06:59 18:59 Intake Total 240 1200 1560 Output Total 300 200 Balance -60 1200 1360 Weight 63.4 kg Intake: Oral 240 1200 1560 Output: Urine 300 200 Other: Voiding Method Bedside Commode Toilet Bedside Commode Bedside Commode # Voids 3 1 - Exam No acute distress, oriented 3. Obese white female, currently on 5 L. No respiratory distress. No conversational dyspnea. Saturations are 94 %. HEENT examination is grossly unremarkable. Neck supple. Full range of motion. No adenopathy thyromegaly or neck vein distention. Cardiovascular examination reveals regular rhythm rate. S1-S2 normal. No S3 or S4. No discernible murmur noted. Heart sounds are distant. Lungs reveal scattered expiratory wheezes and rhonchi. Breath sounds are equal bilaterally but diminished throughout. No crackles. Breath sounds equal. Abdomen soft bowel sounds are heard. No masses or tenderness. Extremities are intact. No cyanosis clubbing or edema. Skin is without rash or lesion. Neurologic examination is brief but nonfocal. - Labs CBC & Chem 7: 05/27/22 07:34 05/27/22 07:34 Labs: Abnormal Lab Results - Last 24 Hours (Table) 05/26/22 05/27/22 05/27/22 Range/Units 16:30 06:38 07:34 WBC (3.8-10.6) k/uL RBC (3.80-5.40) m/uL Hgb (11.4-16.0) gm/dL MCHC (31.0-37.0) g/dL Sodium 134 L (137-145) mmol/L Potassium 3.1 L (3.5-5.1) mmol/L Chloride 85 L (98-107) mmol/L Carbon Dioxide 50 H* (22-30) mmol/L BUN 42 H (7-17) mg/dL Glucose 148 H (74-99) mg/dL POC Glucose (mg/dL) 380 H 174 H (70-110) mg/dL Calcium 8.3 L (8.4-10.2) mg/dL 12/14/22 12/14/22 Range/Units 07:34 11:44 WBC 17.6 H (3.8-10.6) k/uL RBC 3.75 L (3.80-5.40) m/uL Hgb 10.8 L (11.4-16.0) gm/dL MCHC 30.9 L (31.0-37.0) g/dL Sodium (137-145) mmol/L Potassium (3.5-5.1) mmol/L Chloride (98-107) mmol/L Carbon Dioxide (22-30) mmol/L BUN (7-17) mg/dL Glucose (74-99) mg/dL POC Glucose (mg/dL) 162 H (70-110) mg/dL Calcium (8.4-10.2) mg/dL Microbiology - Last 24 Hours (Table) 05/25/22 13:53 Gram Stain - Final Sputum Sputum Culture - Final Pseudomonas aeruginosa Assessment and Plan Plan: Acute on chronic hypoxemic respiratory failure secondary to an exacerbation of COPD. patient used to bronchospastic and wheezy and short of breath, improving slowly Chronic hypoxic /hypercapnic respiratory failure. The patient is maintained on 2 L of oxygen during rest on outpatient basis in addition to 4 L with activity. History of chronic obstructive pulmonary disease, oxygen dependent, and severe. History of 50 years of chronic tobacco dependence, however quit in 2014. Atrial fibrillation/flutter Acute exacerbation of diastolic congestive heart failure. The patient is a preserved LV function with an ejection fraction of 55% Recent hospitalization in [place], [place]. Obesity. Rheumatoid arthritis maintained on Plaquenil and outpatient basis Severe metabolic alkalosis, serum bicarb is improving while being on Diamox Increased lower extremity edema maintain on oral Lasix 40 mg by mouth daily. The patient will be switched IV Lasix. The patient is currently on IV Lasix and IV Diamox Plan: Clinically improving Serum bicarb is also improved Continue bronchodilators Continue prednisone burst taper Continue the patient on Lasix 40 mg IV every 24 hours Continue Diamox 500 mg every 12 hours Monitor electrolytes including the serum bicarb, level is improving Continue anti-coagulation with Eliquis 5 mg by mouth twice a day Cardiogram was noted and the patient has normal LV function without any significant pulmonary hypertension Continue using BiPAP overnight at a pressure of 12/6 with an FiO2 of 40%, intermittently during the day We'll continue to follow Long-term prognosis poor based above-mentioned comorbidities. Ultimately, the patient is going to go back to [facility] where she resides.
[2022-05-27 17:07] LABS: Glucose,Whole Blood 182 mg/dL (70-110)
[2022-05-27] MEDS: FLUTICASONE 50MCG/SPRAY NASAL 16GM EA NOSTRIL PRN (17:32)
[2022-05-27 20:08] LABS: Glucose,Whole Blood 251 mg/dL (70-110)
[2022-05-27] MEDS: HYDROcodone/APAP 5-325MG 1 EACH TAB PO PRN (21:06)
[2022-05-27] MEDS: CALCIUM CARBONATE 500 MG CHEWABLE PO PRN (21:06)
--- NOTE | 2022-05-28 01:15 | P.PN ---
Subjective Progress Note Date: 05/27/22 Acute COPD exacerbation Acute diastolic CHF with ejection fraction 55% Acute on chronic hypoxemic respiratory failure 72-year-old lady with past medical history significant for chronic hypoxic respiratory failure, COPD, history of tobacco addiction who presented to the ER because of worsening shortness of breath. Patient was recently admitted in the hospital in [place] for COPD exacerbation and was discharged and was visiting her daughter here. Patient was using oxygen at home, normally 2 L at rest at 4 L on exertion but stated that yesterday she felt that her oxygen was not working for her. Patient was getting short of breath on exertion, also complaining of cough. Denied any chest pain. There was no complain of orthopnea or PND. Denies any swelling of feet. Patient was worked up in the ER, initial lab work showed patient to have a white count of 5.4, hemoglobin 11.2, platelet count of 278, sodium 142 potassium 5.3, bicarbonate 41, covid was negative, chest x-ray was negative for pneumonia. Patient was admitted to hospitalist service 05/18/2012 Patient breathing pattern is improving and currently she is on [address] oxygen via nasal cannula She has occult blood positive in his stool but d-dimer is negative. 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 Her cough is better. She remains on 5 L of oxygen. We'll hoping for discharge, early next week. The patient is minimally improved. No new labs today other than a glucose of 286. Patient remains on albuterol sulfate, ipratropium bromide, Solu-Medrol, and Tessalon Perles for her cough. She has refused Symbicort. 05/24/2022 Patient is seen and evaluated in room at bedside; The patient is currently on 5 L of oxygen. She uses the BiPAP intermittently, and mostly at nighttime. Currently, the patient's doing about the same to slightly better. Still very short of breath, and bronchospastic. Labs include glucose of 232, CBC reveals a did receive 17.9 which is marked elevation from 10.6 on 05/22/2022, patient is currently on IV steroids, sodium 137, potassium 4.0, BUN/creatinine of 47/0.79 The patient is not producing any phlegm when she coughs. No fever or chills. No chest pain or chest discomfort. Patient remains on Tessalon, albuterol sulfate, and ipratropium bromide, and Solu-Medrol. The patient refused the Symbicort. Patient has been placed back on home dose of Eliquis and hemoglobin is being monitored closely 05/25/2022 Patient is seen and evaluated and follow-up currently sitting up in the chair with cardiology and pulmonary following closely. Patient is continued on IV steroids along with DuoNeb treatments. Patient is oxygen dependent and using BiPAP intermittently 3. Patient continues to have lower extremity edema and being transitioned IV Lasix. Current kidney functions are stable. White blood count remains elevated possibly a component of steroid-induced although patient reports having increased thick green sputum and will submit another sputum culture. Chest x-ray ordered. Patient denies chest pain or palpitations. Patient continues to report shortness of breath. Patient denies nausea or vomiting and tolerating diet. Encouraged oral intake and increased activity as tolerated. Recommend Hever wraps to lower extremities or compression stockings. Elevate lower extremity swelling rest 05/26/2022 Patient being closely followed by pulmonary along with cardiology and maintained on IV steroids along with DuoNeb treatments. Patient also started on ceftriaxone yesterday as patient was reporting increased sputum production that is green and preliminary sputum culture repeat showing gram-negative bacilli. We'll continue ceftriaxone while awaiting for cultures to finalized. Patient reports to breathing slightly better and currently maintained on 4 L via nasal cannula. Patient chronically wears oxygen in the outpatient setting and per case management arrangements being made in the outpatient setting for a BiPAP in the home. Patient with significant weakness in lower leg lower extremity edema has been started on IV Lasix and will continue with follow-up labs. Potassium low at 3.0 and will replace per protocol. WBC is elevated at 19.5 although patient is afebrile possibly a component of steroid-induced. Will follow-up with repeat labs and continue to monitor the patient closely. She also being transitioned to oral prednisone per pulmonary recommendations. Patient denies worsening shortness of breath or chest pain. Patient reports to feeling slightly improved each day and anxious to be going home. Prognosis is guarded. 05/27/2022 Patient seen and evaluated in follow-up with pulmonary following closely. Patient is maintained on IV ceftriaxone while awaiting for sputum cultures to finalized with preliminary showing gram-negative bacilli. Patient also continued on oral prednisone and IV Lasix daily. Patient continues to receive DuoNeb treatments and reports to feeling somewhat improved. Recommend continue elevating lower extremities and continue with Hever wraps or compression stockings. Patient is being arranged in the outpatient setting for a BiPAP machine at home. Patient was in the [place] area and will be returning are once discharged. Patient is currently afebrile and reports to feeling slightly improved. Encouraged oral intake. Patient is afebrile denies chest pain or worsening shortness of breath. No reports of nausea or vomiting and patient is tolerating diet. Patient is anxious to go home. Review of systems: Constitutional: No reports of fatigue, fever, or chills Cardiovascular: No reports of chest pain or palpitations Respiratory: No reports of worsening shortness of breath, reports cough and thick green sputum GI: No reports of nausea, vomiting, or diarrhea : No reports of dysuria or retention Neurovascular: reports of generalized weakness All medications have been reviewed Active Medications Acetaminophen (Acetaminophen Tab 325 Mg Tab) 650 mg PO Q6HR PRN PRN Reason: Fever and/ or Pain Last Admin: 05/18/22 17:02 Dose: 650 mg Hydrocodone Bitart/Acetaminophen (Hydrocodone/Apap 5-325mg 1 Each Tab) 1 each PO BID PRN PRN Reason: Pain Last Admin: 05/27/22 21:06 Dose: 1 each Acetazolamide Sodium (Acetazolamide Sodium 500 Mg Vial) 500 mg IV Q12HR [facility] Last Admin: 05/27/22 20:39 Dose: 500 mg Albuterol/Ipratropium (Ipratropium-Albuterol 3 Ml Neb) 3 ml INHALATION RT-Q2H PRN PRN Reason: Shortness Of Breath Or Wheezing Last Admin: 05/27/22 03:52 Dose: 3 ml Albuterol/Ipratropium (Ipratropium-Albuterol 3 Ml Neb) 3 ml INHALATION RT-QID [facility] Last Admin: 05/27/22 21:06 Dose: 3 ml Apixaban (Apixaban 5 Mg Tab) 5 mg PO BID [facility]; Protocol Last Admin: 05/27/22 20:38 Dose: 5 mg Benzonatate (Benzonatate 100 Mg Cap) 200 mg PO TID [facility] Last Admin: 05/27/22 20:38 Dose: 200 mg Buspirone HCl (Buspirone Hcl 5 Mg Tab) 7.5 mg PO BID [facility] Last Admin: 05/27/22 20:38 Dose: 7.5 mg Calcium Carbonate/Glycine (Calcium Carbonate 500 Mg Chewable) 500 mg PO QID PRN PRN Reason: Heartburn Last Admin: 05/27/22 21:06 Dose: 500 mg Dextrose/Water (Dextrose 50% Syringe 50 Ml) 25 ml IVP PER PROTOCOL PRN; Protocol PRN Reason: Hypoglycemia Dextrose/Water (Dextrose 50% Syringe 50 Ml) 50 ml IVP PER PROTOCOL PRN; Protocol PRN Reason: Hypoglycemia Diltiazem HCl (Diltiazem Cd 240 Mg Cap.Er.24h) 240 mg PO DAILY [facility] Last Admin: 05/27/22 09:41 Dose: 240 mg Fluticasone Propionate (Fluticasone 50mcg/[place] Nasal 16gm) 1 spray EA NOSTRIL DAILY [facility] Last Admin: 05/27/22 09:42 Dose: 1 spray Fluticasone Propionate (Fluticasone 50mcg/[place] Nasal 16gm) 2 spray EA NOSTRIL DAILY PRN PRN Reason: Allergy Symptoms Last Admin: 05/27/22 17:32 Dose: 2 spray Furosemide (Furosemide 10 Mg/Ml 4 Ml Vial) 40 mg IV DAILY [facility] Last Admin: 05/27/22 09:42 Dose: 40 mg Guaifenesin (Guaifenesin 600 Mg Tablet.Er) 600 mg PO Q12HR [facility] Last Admin: 05/27/22 20:38 Dose: 600 mg Ceftriaxone Sodium 2 gm/ (Sodium Chloride) 50 mls @ 100 mls/hr IVPB Q24HR [facility]; Protocol Last Admin: 05/27/22 09:55 Dose: 100 mls/hr Insulin Aspart (Insulin Aspart (Novolog) 100 Unit/Ml Vial) 0 unit SQ ACHS [facility]; Protocol Last Admin: 05/27/22 20:39 Dose: 3 unit Losartan Potassium (Losartan 50 Mg Tab) 50 mg PO DAILY [facility] Last Admin: 05/27/22 09:41 Dose: 50 mg Miscellaneous Information (Potassium Replacement Protocol 1 Each Misc) 1 each MISCELLANE DAILY PRN; Protocol PRN Reason: Per Protocol Naloxone HCl (Naloxone 0.4 Mg/Ml 1 Ml Vial) 0.2 mg IVP Q2M PRN PRN Reason: Opioid Reversal Nystatin (Nystatin 100,000 Unit/Ml Susp 500,000 Unit/5 Ml Cup) 500,000 unit PO QID [facility]; Protocol Last Admin: 05/27/22 20:40 Dose: 500,000 unit Pantoprazole Sodium (Pantoprazole 40 Mg/10 Ml Vial) 40 mg IVP DAILY [facility] Last Admin: 05/27/22 09:42 Dose: 40 mg Prednisone (Prednisone 20 Mg Tab) 40 mg PO DAILY [facility] Last Admin: 05/27/22 09:41 Dose: 40 mg Physical exam: GENERAL: The patient is alert and oriented x3, sitting up in the chair Well developed, well nourished. HEENT: Pupils are round and equally reacting to light. EOMI. No scleral icterus. No conjunctival pallor. Normocephalic, atraumatic. No pharyngeal erythema. No thyromegaly. CARDIOVASCULAR: S1 and S2 muffled PULMONARY: Diminished breath sounds bilaterally with some scattered rhonchi and faint expiratory wheezing noted ABDOMEN: Soft, nontender, nondistended, normoactive bowel sounds. No palpable organomegaly. MUSCULOSKELETAL: No joint swelling or deformity. EXTREMITIES: No cyanosis, clubbing, or pedal edema. Bilateral Lower extremity edema noted with some improvement from yesterday NEUROLOGICAL: Gross neurological examination did not reveal any focal deficits. SKIN: No rashes. no petechiae. Assessment: Acute COPD exacerbation Acute diastolic CHF with ejection fraction 55% Hypokalemia, most likely secondary to diuretics, improved Acute on chronic hypoxemic respiratory failure secondary to COPD exacerbation. Chronic atrial fibrillation Hyperkalemia, resolved History of tobacco addiction DVT prophylaxis: eliquis GI Prophylaxis: Ppi Full code with no CPR Plan: Continue with current medications and consultations following. Patient is continued on oral prednisone and antibiotics have been added in the form of ceftriaxone while awaiting finalized sputum culture. Encouraged incentive spirometer use at least 10 times every hour while awake Patient reports to breathing better and continued on 4 L via nasal cannula and discuss with daughter over the phone today and has the BiPAP machine at home and patient would need to be home by 3 PM to receive proper education. Patient was in the [place] area. Patient was recently switched to IV Lasix as lower extremities continue to be edematous. Showing some improvement and will continue IV Lasix and additional 24 hours and follow-up with labs in the morning. Patient encouraged to elevate lower extremities while at rest and may use Hever wraps from the toes up to the knees or compression stockings Continue with Eliquis 5 mg and monitor hemoglobin Patient did have positive fecal occult blood test and discussed with surgery team for possible colonoscopy although patient and family are refusing at this time. Educated patient to follow-up outpatient or stable Discharge planning in process with possible discharge in the next 24-48 hours. Patient would need an early discharge to arrange for transportation back to [place] to meet the [employer] for education and training. Patient lives with daughter. Due to multiple complex medical issues, prognosis is guarded The impression and plan of care has been dictated by Chantell Swartz, Nurse Practitioner as directed. Dr. Jose MD I have performed a history and examination and MDM of this patient, discussed the same with the dictator, and agree with the dictator's assessment and plan as written ,documented as a scribe. Based on total visit time, I have performed more than 50% of the visit. Objective - Vital Signs Vital signs: Vital Signs Temp 98.1 F 05/27/22 03:27 Pulse 100 05/27/22 08:50 Resp 20 05/27/22 08:50 BP 147/71 05/27/22 03:27 Pulse Ox 95 05/27/22 08:39 FiO2 40 05/27/22 07:49 Intake & Output 05/26/22 05/27/22 05/27/22 18:59 06:59 18:59 Intake Total 240 1200 Output Total 300 Balance -60 1200 Weight 63.4 kg Intake: Oral 240 1200 Output: Urine 300 Other: Voiding Method Bedside Commode Toilet Bedside Commode # Voids 3 - Labs CBC & Chem 7: 05/27/22 07:34 05/27/22 07:34 Labs: Abnormal Lab Results - Last 24 Hours (Table) 05/26/22 05/26/22 05/26/22 Range/Units 10:25 10:25 11:35 WBC 19.5 H (3.8-10.6) k/uL RBC (3.80-5.40) m/uL Hgb (11.4-16.0) gm/dL MCHC 29.1 L (31.0-37.0) g/dL Neutrophils # 18.4 H (1.3-7.7) k/uL Lymphocytes # 0.4 L (1.0-4.8) k/uL Sodium (137-145) mmol/L Potassium 3.0 L (3.5-5.1) mmol/L Chloride 79 L (98-107) mmol/L Carbon Dioxide 54 H* (22-30) mmol/L BUN 38 H (7-17) mg/dL Glucose 131 H (74-99) mg/dL POC Glucose (mg/dL) 201 H (70-110) mg/dL Calcium 8.3 L (8.4-10.2) mg/dL 05/26/22 05/27/22 05/27/22 Range/Units 16:30 06:38 07:34 WBC (3.8-10.6) k/uL RBC (3.80-5.40) m/uL Hgb (11.4-16.0) gm/dL MCHC (31.0-37.0) g/dL Neutrophils # (1.3-7.7) k/uL Lymphocytes # (1.0-4.8) k/uL Sodium 134 L (137-145) mmol/L Potassium 3.1 L (3.5-5.1) mmol/L Chloride 85 L (98-107) mmol/L Carbon Dioxide 50 H* (22-30) mmol/L BUN 42 H (7-17) mg/dL Glucose 148 H (74-99) mg/dL POC Glucose (mg/dL) 380 H 174 H (70-110) mg/dL Calcium 8.3 L (8.4-10.2) mg/dL 05/27/22 Range/Units 07:34 WBC 17.6 H (3.8-10.6) k/uL RBC 3.75 L (3.80-5.40) m/uL Hgb 10.8 L (11.4-16.0) gm/dL MCHC 30.9 L (31.0-37.0) g/dL Neutrophils # (1.3-7.7) k/uL Lymphocytes # (1.0-4.8) k/uL Sodium (137-145) mmol/L Potassium (3.5-5.1) mmol/L Chloride (98-107) mmol/L Carbon Dioxide (22-30) mmol/L BUN (7-17) mg/dL Glucose (74-99) mg/dL POC Glucose (mg/dL) (70-110) mg/dL Calcium (8.4-10.2) mg/dL Microbiology - Last 24 Hours (Table) 05/25/22 13:53 Gram Stain - Preliminary Sputum Sputum Culture - Preliminary Gram Neg Bacilli
[2022-05-28 06:27] LABS: Glucose,Whole Blood 91 mg/dL (70-110)
[2022-05-28] MEDS: IPRATROPIUM-ALBUTEROL 3 ML NEB INHALATION SCH ×2 (07:31→11:16)
[2022-05-28] MEDS: PANTOPRAZOLE 40 MG/10 ML VIAL IVP SCH (08:35)
[2022-05-28] MEDS: FUROSEMIDE 10 MG/ML 4 ML VIAL IV SCH (08:36)
[2022-05-28] MEDS: predniSONE 20 MG TAB PO SCH (08:40)
[2022-05-28] MEDS: APIXABAN 5 MG TAB PO SCH (08:40)
[2022-05-28] MEDS: BENZONATATE 100 MG CAP PO SCH (08:40)
[2022-05-28] MEDS: LOSARTAN 50 MG TAB PO SCH (08:40)
[2022-05-28] MEDS: guaiFENesin 600 MG TABLET.ER PO SCH (08:40)
[2022-05-28] MEDS: DILTIAZEM CD 240 MG CAP.ER.24H PO SCH (08:40)
[2022-05-28] MEDS: busPIRone HCl 5 MG TAB PO SCH (08:41)
[2022-05-28] MEDS: NYSTATIN 100,000 UNIT/ML SUSP 500,000 UNIT/5 ML CUP PO SCH (08:41)
[2022-05-28] MEDS: INSULIN ASPART (NovoLOG) 100 UNIT/ML VIAL SQ SCH ×2 (08:41→13:52)
[2022-05-28] MEDS: FLUTICASONE 50MCG/SPRAY NASAL 16GM EA NOSTRIL SCH (08:42)
[2022-05-28 11:19] VITALS: BP 145/74; RESP 20; TEMP 97.9
[2022-05-28 11:26] VITALS: PULSE 78
--- NOTE | 2022-05-28 11:26 | P.PN ---
Subjective Progress Note Date: 05/28/22 On 05/25/2022, the patient is being seen for a follow-up. This patient has advanced COPD and she is oxygen dependent. The patient presented to us with an acute COPD exacerbation. The patient remains on bronchodilators and steroids. Continues to have significant amount of edema lower extremity bilaterally. The WBC count is at 21.4 with a hemoglobin of 12 and a platelet count of 178. Sodium level is at 137 with a serum bicarb of 6 with a potassium level of 4.8. BUN is at 42 with a creatinine of 0.5. Calcium is level at 8.2. The patient remains on DuoNeb about treatments [id number]. The patient is on IV Solu- Medrol 60 mg every 6 hours. Remains spastic and wheezy. Remains on diuretic antibiotic coverage with IV Rocephin. 05/26/2022, the patient is being seen for a follow-up. The patient is currently on Diamox and Lasix. She is on Lasix 40 mg IV every 12 hours and she is also on Diamox 500 mg every 12 hours. The fluid balance is negative and the patient's blood work from today shows a serum bicarb of 54 which is still elevated although slightly improved compared to yesterday and the day before. Sodium level is at 137. Potassium level is at 3 and a potassium level is being replaced. The risks thousand 19.7 with a hemoglobin of 12.0. Platelet count is 274. She remains on IV Solu-Medrol. She is also on bronchodilators around the clock. No chest pain. No altered mentation. No signs of any CO2 narcosis. 05/27/2022, the patient is doing well. No new complaints. Continues to diabetes. The reason IV Lasix. Remains on Diamox. Remains on prednisone burst taper in addition to bronchodilators. Continues to have some edema lower exam is bilaterally. Serum bicarb is currently down to 50 and a sodium level is at 134. Lites echoes at 70.6 with a hemoglobin of 10.8. No altered mentation. No chest pain. No signs of any CO2 narcosis. 05/28/2022, seeing the patient for a follow-up. The patient was on BiPAP throughout the night and this morning the patient be transitioned to nasal cannula. She is still diuresing with Lasix 40 mg IV every 24 hours. Serum bicarb from yesterday was down to 50. Awaiting repeat an x-ray from today. The patient is current on a prednisone burst taper. Sputum turned out to the pro's for gram-negative bacillus and ultimately Pseudomonas was cultured and the patient will be placed on oral ciprofloxacin. No altered mentation. No chest pain. She has a congested cough. No significant sputum production. No other significant complaints otherwise for now. Once off the BiPAP, the patient was placed on 4 L of oxygen by nasal cannula and pulse ox is up to 96%. Objective - Vital Signs Vital signs: Vital Signs Temp 97.9 F 05/28/22 08:00 Pulse 82 05/28/22 11:17 Resp 20 05/28/22 08:00 BP 145/74 05/28/22 08:00 Pulse Ox 96 05/28/22 08:00 FiO2 40 05/27/22 15:20 Intake & Output 05/27/22 05/28/22 05/28/22 18:59 06:59 18:59 Intake Total 1560 Output Total 200 250 0 Balance 1360 -250 0 Weight 63.8 kg Intake: Oral 1560 Output: Urine 200 250 Stool 0 Other: Voiding Method Bedside Commode Bedside Commode # Voids 1 1 - Exam No acute distress, oriented 3. Obese white female, currently on 4 L. No r espiratory distress. No conversational dyspnea. Saturations are 94 %. HEENT examination is grossly unremarkable. Neck supple. Full range of motion. No adenopathy thyromegaly or neck vein distention. Cardiovascular examination reveals regular rhythm rate. S1-S2 normal. No S3 or S4. No discernible murmur noted. Heart sounds are distant. Lungs reveal scattered expiratory wheezes and rhonchi. Breath sounds are equal bilaterally but diminished throughout. No crackles. Breath sounds equal. Abdomen soft bowel sounds are heard. No masses or tenderness. Extremities are intact. No cyanosis clubbing or edema. Skin is without rash or lesion. Neurologic examination is brief but nonfocal. - Labs CBC & Chem 7: 05/27/22 07:34 05/27/22 07:34 Labs: Abnormal Lab Results - Last 24 Hours (Table) 05/27/22 05/27/22 05/27/22 Range/Units 11:44 17:06 20:07 POC Glucose (mg/dL) 162 H 182 H 251 H (70-110) mg/dL Microbiology - Last 24 Hours (Table) 05/25/22 13:53 Gram Stain - Final Sputum Sputum Culture - Final Pseudomonas aeruginosa Assessment and Plan Plan: Acute on chronic hypoxemic respiratory failure secondary to an exacerbation of COPD. patient used to bronchospastic and wheezy and short of breath, improving slowly. The patient has pseudomonas aeruginosa in the sputum. This could be related to her prolonged hospitalization/conization versus a true tracheal bronchitis. The patient was started on a course of ciprofloxacin taken in account her borderline pulmonary status. Chronic hypoxic /hypercapnic respiratory failure. The patient is maintained on 2 L of oxygen during rest on outpatient basis in addition to 3-4 L with activity. The patient is utilizing BiPAP overnight. History of chronic obstructive pulmonary disease, oxygen dependent, and severe. History of 50 years of chronic tobacco dependence, however quit in 2014. Atrial fibrillation/flutter Acute exacerbation of diastolic congestive heart failure. The patient is a preserved LV function with an ejection fraction of 55% Recent hospitalization in [place], [place]. Obesity. Rheumatoid arthritis maintained on Plaquenil and outpatient basis Severe metabolic alkalosis, serum bicarb is improving while being on Diamox Increased lower extremity edema maintain on oral Lasix 40 mg by mouth daily. The patient will be switched IV Lasix. The patient is currently on IV Lasix and IV Diamox Plan: Clinically improving Start the patient on ciprofloxacin 500 mg by mouth twice a day. Serum bicarb is also improved, awaiting labs from today Continue bronchodilators Continue prednisone burst taper Continue the patient on Lasix 40 mg IV every 24 hours,this patient to oral Lasix in a.m. Continue Diamox 500 mg every 12 hours Monitor electrolytes including the serum bicarb, level is improving Continue anti-coagulation with Eliquis 5 mg by mouth twice a day Cardiogram was noted and the patient has normal LV function without any significant pulmonary hypertension Continue using BiPAP overnight at a pressure of 12/6 with an FiO2 of 40%, intermittently during the day We'll continue to follow Long-term prognosis poor based above-mentioned comorbidities.
[2022-05-28] MEDS ORDERED: CIPROFLOXACIN HCL 500 MG TAB PO SCH (11:30)
[2022-05-28 13:08] LABS: Calcium 8.7 mg/dL (8.4-10.2); Potassium 3.8 mmol/L (3.5-5.1)
[2022-05-28] MEDS: HYDROcodone/APAP 5-325MG 1 EACH TAB PO PRN (13:58)
--- NOTE | 2022-05-30 10:54 | P.DS ---
Providers Date of admission: 05/16/22 06:55 Expected date of discharge: 05/28/22 Attending physician: Armand Garcia Consults: 05/16/22 06:52 Consult Physician Routine Consulting Provider: Sujata Albert Consult Reason/Comments: hypoxia Do you want consulting provider notified?: Yes 05/16/22 14:55 Consult Physician Routine Consulting Provider: Drew Whatley Consult Reason/Comments: elevated troponin Do you want consulting provider notified?: Yes, Notify in am 05/21/22 23:15 Consult Physician Routine Consulting Provider: Jose Nielsen Consult Reason/Comments: chest pain Do you want consulting provider notified?: Yes, Notify in am Primary care physician: Physician Nonstaff Hospital Course: Final diagnosis Acute COPD exacerbation with purulent tracheobronchitis with pseudomonas aeruginosa in the sputum Acute diastolic CHF with ejection fraction 55% Hypokalemia, most likely secondary to diuretics, improved Acute on chronic hypoxemic respiratory failure secondary to COPD exacerbation. Chronic atrial fibrillation Hyperkalemia, resolved History of tobacco addiction DVT prophylaxis: eliquis GI Prophylaxis: Ppi Full code with no CPR Discharge disposition Patient is being discharged in a stable condition with guarded prognosis to home in [place]. Patient will follow-up with her primary care provider along with meter changes records clerk in the outpatient setting upon discharge. Patient is to continue with a short course of cipro as well as prednisone and oral lasix. Diamox has been added. Patient needs follow up this week. Patient has special bipap device being delivered to the home today. Total time taken is greater than 35 minutes. Hospital course This is a 72-year-old female who was recently admitted with copd, chf along with possible purulent tracheobronchitis and being closely monitored. Pulmonary , cardiology, general surgery following. General surgery followed for positive occult blood stool and recommending endoscopic intervention. Patient and family refused. Patient will need follow-up outpatient. Patient also had a positive sputum culture of Pseudomonas and was evaluated by pulmonary continued on oral prednisone along with oral diuretics and a course of Cipro and recommending close outpatient follow-up with her meter changes records clerk. BiPAP in the home has been delivered and family arranging for education meeting with the company today. Patient also continued on diuretics for CHF exacerbation and continued with lower extremity edema although some improvement with impression stockings. Encourage the patient elevate lower extremities while at rest. Encouraged continued incentive spirometer use. Overall prognosis is extremely guarded and patient will be discharged home today with home care. Currently no reports of chest pain, worsening shortness of breath, or palpitations. Patient is afebrile. No reports of nausea or vomiting and patient is tolerating diet. Patient will be discharged home with extremely guarded prognosis today. Patient is high risk for admissions. Physical exam: Gen: This is a 72-year-old female awake, alert and oriented 3, ill-appearing, elderly appearing female HEENT: Head is atraumatic, normocephalic. Pupils equal, round. Sclerae is anicteric. NECK: Supple. No JVD. No lymphadenopathy. No thyromegaly. LUNGS: Diminished breath sounds bilaterally with overall scattered rhonchi and expiratory wheezing noted. No intercostal retractions. HEART: S1, S2 are muffled ABDOMEN: Soft. Bowel sounds are present. No masses. No tenderness. EXTREMITIES: No pedal edema. No calf tenderness. 1+ pitting edema noted bilaterally lower extremities NEUROLOGICAL: Patient is awake, alert and oriented x3. Cranial nerves 2 through 12 are grossly intact. Please refer to medication reconciliation sheet for a list of medications. The impression and plan of care has been dictated by Chantell Swartz, Nurse Practitioner as directed. Dr. Jose MD I have performed a history and examination and MDM of this patient, discussed the same with the dictator, and agree with the dictator's assessment and plan as written ,documented as a scribe. Based on total visit time, I have performed more than 50% of the visit. Patient Condition at Discharge: Fair Plan - Discharge Summary Discharge Rx Participant: No New Discharge Prescriptions: New Diltiazem Cd [Cardizem CD] 240 mg PO DAILY 30 Days #30 cap Ciprofloxacin HCl [Cipro] 750 mg PO Q12H 5 Days #10 tab acetaZOLAMIDE [Diamox] 500 mg PO DAILY #30 tablet Fluticasone Nasal Winfred [Flonase Nasal Winfred] 2 spray EA NOSTRIL DAILY PRN 30 Days #7 ml PRN Reason: Allergy Symptoms Furosemide [Lasix] 40 mg PO DAILY #30 tablet guaiFENesin [Mucinex] 600 mg PO Q12HR #20 tab Nystatin 100,000 Unit/ml Susp [Mycostatin Oral Susp] 500,000 unit PO QID 7 Days #360 ml Benzonatate [Tessalon Perles] 200 mg PO TID #20 cap Calcium Carbonate [Tums] 500 mg PO QID PRN tab PRN Reason: Heartburn Losartan [Cozaar] 50 mg PO DAILY 30 Days #30 tab Apixaban [Eliquis] 5 mg PO BID 30 Days #60 tab Acetaminophen Tab [Tylenol] 650 mg PO Q6HR PRN tab PRN Reason: Fever And/ Or Pain Continue HYDROcodone/APAP 5-325MG [Lucinda 5-325] 1 tab PO BID PRN PRN Reason: Pain Fluticasone Nasal Winfred [Flonase Nasal Winfred] 1 spray EA NOSTRIL DAILY Famotidine [Pepcid] 20 mg PO DAILY Alendronate Sodium [Fosamax] 70 mg PO WEEKLY predniSONE [Deltasone] 20 mg PO BID Ipratropium-Albuterol Nebulize [Duoneb 0.5 mg-3 mg/3 ml Soln] 3 ml INHALATION RT-TID PRN PRN Reason: Shortness Of Breath Hydroxychloroquine Sulfate [Plaquenil] 200 mg PO DAILY busPIRone HCL [Buspar] 7.5 mg PO BID Albuterol Sulfate [Albuterol Sulfate Hfa] 2 puff PO RT-Q6H PRN PRN Reason: Shortness Of Breath Pregabalin [Lyrica] 150 mg PO DAILY Discontinued dilTIAZem HCL [dilTIAZem HCL 24Hr ER (CD)] 120 mg PO DAILY Discharge Medication List Albuterol Sulfate [Albuterol Sulfate Hfa] 2 puff PO RT-Q6H PRN 05/16/22 [History] Alendronate Sodium [Fosamax] 70 mg PO WEEKLY 05/16/22 [History] Famotidine [Pepcid] 20 mg PO DAILY 05/16/22 [History] Fluticasone Nasal Winfred [Flonase Nasal Winfred] 1 spray EA NOSTRIL DAILY 05/16/22 [History] HYDROcodone/APAP 5-325MG [Lucinda 5-325] 1 tab PO BID PRN 05/16/22 [History] Hydroxychloroquine Sulfate [Plaquenil] 200 mg PO DAILY 05/16/22 [History] Ipratropium-Albuterol Nebulize [Duoneb 0.5 mg-3 mg/3 ml Soln] 3 ml INHALATION RT-TID PRN 05/16/22 [History] Pregabalin [Lyrica] 150 mg PO DAILY 05/16/22 [History] busPIRone HCL [Buspar] 7.5 mg PO BID 05/16/22 [History] predniSONE [Deltasone] 20 mg PO BID 05/16/22 [History] Acetaminophen Tab [Tylenol] 650 mg PO Q6HR PRN tab 05/28/22 [Rx] Apixaban [Eliquis] 5 mg PO BID 30 Days #60 tab 05/28/22 [Rx] Benzonatate [Tessalon Perles] 200 mg PO TID #20 cap 05/28/22 [Rx] Calcium Carbonate [Tums] 500 mg PO QID PRN tab 05/28/22 [Rx] Ciprofloxacin HCl [Cipro] 750 mg PO Q12H 5 Days #10 tab 05/28/22 [Rx] Diltiazem Cd [Cardizem CD] 240 mg PO DAILY 30 Days #30 cap 05/28/22 [Rx] Fluticasone Nasal Winfred [Flonase Nasal Winfred] 2 spray EA NOSTRIL DAILY PRN 30 Days #7 ml 05/28/22 [Rx] Furosemide [Lasix] 40 mg PO DAILY #30 tablet 05/28/22 [Rx] Losartan [Cozaar] 50 mg PO DAILY 30 Days #30 tab 05/28/22 [Rx] Nystatin 100,000 Unit/ml Susp [Mycostatin Oral Susp] 500,000 unit PO QID 7 Days #360 ml 05/28/22 [Rx] acetaZOLAMIDE [Diamox] 500 mg PO DAILY #30 tablet 05/28/22 [Rx] guaiFENesin [Mucinex] 600 mg PO Q12HR #20 tab 05/28/22 [Rx] Follow up Appointment(s)/Referral(s): [facility], [facility]STA[facility] a [facility] Nonstaff,Physician [Primary Care Provider] - 1-2 days Marc Clark MD [STAFF PHYSICIAN] - 2 Weeks (office willl call you with your follow up appointment) Patient Instructions/Handouts: COPD (Chronic Obstructive Pulmonary Disease) (DC), Chronic Bronchitis (ED) Activity/Diet/Wound Care/Special Instructions: Activity Limited until follow-up Follow-up with primary care provider on discharge Follow-up with pulmonary outpatient ollow-up with cardiology outpatient Continue taking medications as prescribed and finish antibiotics Continue current dose of prednisone Discharge Disposition: HOME WITH HOME HEALTH SERVICES
== END 2022-05-28 14:22 | disposition home health service (06) | DRG 189 ==
LOC: EC 04:20 → 4SSUR 06:55 → 2SICU 05-17 00:11 → 3SCARD 05-18 15:11
PROVIDERS: ADMIT Hospitalist; ATTEND Hospitalist
PROC: 5A09357 Assistance with Respiratory Ventilation, Less than 24 Consecutive Hours, Continuous Positive Airway Pressure (ICD-10-PCS; principal; 2022-05-17)
DX: J96.21 Acute and chronic respiratory failure with hypoxia (principal); I50.33 Acute on chronic diastolic (congestive) heart failure; I21.A1 Myocardial infarction type 2; J44.1 Chronic obstructive pulmonary disease with (acute) exacerbation; I48.20 Chronic atrial fibrillation, unspecified; I48.3 Typical atrial flutter; E87.3 Alkalosis; J40 Bronchitis, not specified as acute or chronic; J84.10 Pulmonary fibrosis, unspecified; J96.12 Chronic respiratory failure with hypercapnia; E66.9 Obesity, unspecified; F41.9 Anxiety disorder, unspecified; I11.0 Hypertensive heart disease with heart failure; Z20.822 Contact with and (suspected) exposure to COVID-19; I27.81 Cor pulmonale (chronic); E87.6 Hypokalemia; T50.2X5A Adverse effect of carbonic-anhydrase inhibitors, benzothiadiazides and other diuretics, initial encounter; E87.5 Hyperkalemia; D50.9 Iron deficiency anemia, unspecified; R19.5 Other fecal abnormalities; M06.9 Rheumatoid arthritis, unspecified; D72.829 Elevated white blood cell count, unspecified; T38.0X5A Adverse effect of glucocorticoids and synthetic analogues, initial encounter; Z68.30 Body mass index [BMI] 30.0-30.9, adult; Z88.8 Allergy status to other drugs, medicaments and biological substances; Z99.81 Dependence on supplemental oxygen; Z87.891 Personal history of nicotine dependence; Z79.899 Other long term (current) drug therapy; Z79.83 Long term (current) use of bisphosphonates; Z79.52 Long term (current) use of systemic steroids
CPT/HCPCS: 36415; 71045; 80048; 80053; 82272; 82728; 83540; 83550; 83735; 83880; 84484; 85025; 85027; 85379; 85610; 85730; 87070; 87077; 87186; 87205; 87635; 93005; 93306; 94640; 94644; 94660; 94667; 94760; 96361; 96374; 96375; 99291